=== PATIENT | male | born 1960 | race Caucasian/White ===

== ENCOUNTER 2016-12-03 14:15 | Emergency (ER) | payer MEDICAID ==
[2016-12-03] MEDS ORDERED: KETOROLAC 60 MG/2 ML VIAL IM STA (15:04)
[2016-12-03] MEDS ORDERED: KETOROLAC 30 MG/ML VIAL ONE (15:07)
== END 2016-12-03 16:22 | disposition home or self-care (01) ==
DX: M25.562 Pain in left knee (principal); G89.29 Other chronic pain; M25.462 Effusion, left knee

== ENCOUNTER 2017-04-15 08:45 | Outpatient (CLI) | payer MEDICAID | END 2017-04-15 08:46 | disposition home or self-care (01) | DX: I42.9 Cardiomyopathy, unspecified (principal); Z95.810 Presence of automatic (implantable) cardiac defibrillator ==

== ENCOUNTER 2018-01-08 10:58 | Emergency (ER) | payer MEDICAID ==
[2018-01-08 11:29] LABS: BASOPHILS # (AUTO) 0.1 10^3/uL (0.0-0.1); BASOPHILS % (AUTO) 1.3 %; EOSINOPHILS # (AUTO) 0.3 10^3/uL (0.0-0.7); EOSINOPHILS % (AUTO) 2.7 %; HGB - HEMOGLOBIN 14.4 g/dL (14.0-18.0); LYMPHOCYTES # (AUTO) 2.2 10^3/uL (1.5-3.5); LYMPHOCYTES % (AUTO) 19.4 %; MEAN CORPUSCULAR HEMOGLOBIN 29.5 pg (27.0-31.0); MEAN CORPUSCULAR HGB CONC 33.5 g/dL (32.0-36.0); MEAN CORPUSCULAR VOLUME 87.9 fL (80.0-94.0); MEAN PLATELET VOLUME 9.2 fL (7.4-11.4); NEUTROPHILS # (AUTO) 7.6 10^3/uL (1.5-6.6); NEUTROPHILS % (AUTO) 67.6 %; PLT - PLATELET COUNT 178 10^3/uL (130-450); RED BLOOD COUNT 4.87 10^6/uL (4.70-6.10); RED CELL DISTRIBUTION WIDTH 13.9 % (12.0-15.0); WHITE BLOOD COUNT 11.2 x10^3/uL (4.8-10.8)
[2018-01-08 11:40] LABS: ALBUMIN 4.5 g/dL (3.2-5.5); ALBUMIN/GLOBULIN RATIO 1.7 (1.0-2.2); BILIRUBIN,TOTAL 1.1 mg/dL (0.2-1.0); CALCIUM 9.1 mg/dL (8.5-10.3); CREATININE 1.1 mg/dL (0.6-1.2); TOTAL PROTEIN 7.2 g/dL (6.7-8.2)
--- NOTE | 2018-01-08 12:18 | ED Physician Documentation ---
History of Present Illness - Stated complaint Stated Complaint: DIFFICULTY BREATHING - Chief complaint Chief Complaint: Resp - History obtained from History obtained from: Patient - History of Present Illness Timing: How many days ago (3) Pain level max: 5 Pain level now: 2 - Additonal information Additional information: Patient is a 57-year-old gentleman with a long history of cardiac disease as well as heart failure who presents to the emergency department with 3 days of worsening dyspnea. States it is worse with lying flat, better with sitting up. Has been taking his Lasix as prescribed. States he has not been ill recently. It is also worse when laying on the left side, this creates a slight pressure in his chest. States that the pressure has been intermittent in the past 3 days, but consistent for approximately 6 hours last night. States also feels that his anxiety is worsening. States has a long history of hemorrhoids and noticed a very small amount of bright red blood on the toilet paper today. Does not want this evaluated. Review of Systems Ten Systems: 10 systems reviewed and negative Constitutional: denies: Fever, Chills Ears: denies: Ear pain Nose: denies: Rhinorrhea / runny nose, Congestion Throat: denies: Sore throat Cardiac: denies: Palpitations Respiratory: reports: Dyspnea, Wheezing. denies: Hemoptysis GI: denies: Abdominal Pain, Nausea, Vomiting, Diarrhea Skin: denies: Rash Musculoskeletal: denies: Neck pain, Back pain Neurologic: denies: Headache PD PAST MEDICAL HISTORY - Past Medical History Cardiovascular: Congestive heart failure Neuro: Head injury Endocrine/Autoimmune: None GI: GERD : None Psych: Panic attacks Musculoskeletal: Gout, Chronic back pain Derm: None - Past Surgical History Past Surgical History: Yes General: Cholecystectomy Cardiovascular: AICD - Present Medications Home Medications: Ambulatory Orders Medication Instructions Recorded Confirmed Carvedilol 9.375 mg PO BID 02/09/14 09/17/16 Citalopram Hydrobromide 20 mg PO DAILY 02/09/14 09/17/16 [Citalopram HBr] Digoxin [Lanoxin] 125 mcg PO DAILY 02/09/14 09/17/16 Furosemide [Lasix] 40 mg PO DAILY 02/09/14 09/17/16 Lisinopril 20 mg PO BID 02/09/14 09/17/16 Nitroglycerin [Nitrostat] 0.4 mg SL Q5MIN PRN 02/09/14 09/17/16 Pravastatin Sodium 20 mg PO HS 02/09/14 09/17/16 metFORMIN [Glucophage] 1 mg ORAL BID 04/29/15 09/17/16 Allopurinol 100 mg PO DAILY 08/18/15 09/17/16 Dexamethasone [Decadron] 4 mg PO DAILY #5 tablet 09/07/16 09/17/16 Naproxen 375 mg PO BID #15 tablet 09/07/16 09/17/16 LORazepam [Ativan] 0.5 - 1 mg PO Q6H PRN #14 tablet 09/18/16 Meloxicam [Mobic] 7.5 mg PO DAILY #20 tablet 12/03/16 Albuterol Sulf [Ventolin Hfa 1 - 2 puffs INH Q4HR PRN #1 inhaler 01/08/18 Inhaler] - Allergies Allergies/Adverse Reactions: Allergies Allergy/AdvReac Type Severity Reaction Status Date / Time No Known Drug Allergies Allergy Verified 01/08/18 11:06 - Social History Does the pt smoke?: No Smoking Status: Never smoker Does the pt drink ETOH?: No Does the pt have substance abuse?: Yes Substance Use and Type: Marijuana - Immunizations Immunizations are current?: Yes - POLST Patient has POLST: No PD ED PE NORMAL - Vitals Vital signs reviewed: Yes - General General: Alert and oriented X 3, No acute distress - HEENT HEENT: Moist mucous membranes - Neck Neck: Supple, no meningeal sign - Cardiac Cardiac: RRR - Respiratory Respiratory: No respiratory distress, Other (Moderate wheezing bilaterally) - Abdomen Abdomen: Soft, Non tender, Non distended - Derm Derm: Warm and dry - Extremities Extremities: No edema, No calf tenderness / cord - Neuro Neuro: Alert and oriented X 3 - Psych Psych: Normal mood, Normal affect Results - Vitals Vitals: Vital Signs - 24 hr 01/08/18 01/08/18 01/08/18 11:01 11:07 12:30 Temperature 36.3 C L Heart Rate 80 75 Respiratory 22 20 Rate Blood Pressure 139/90 H O2 Saturation 96 01/08/18 14:51 Temperature Heart Rate 82 Respiratory 18 Rate Blood Pressure 147/82 H O2 Saturation 95 Oxygen O2 Source Room air - EKG (time done) 1108 Rate: Rate (enter#) (72) Rhythm: Paced Computer interpretation: Agree with computer - Labs Labs: Laboratory Tests 01/08/18 01/08/18 01/08/18 11:15 11:15 11:15 WBC 11.2 H RBC 4.87 Hgb 14.4 Hct 42.8 MCV 87.9 MCH 29.5 MCHC 33.5 RDW 13.9 Plt Count 178 MPV 9.2 Neut # 7.6 H Lymph # 2.2 Frio # 1.0 Eos # 0.3 Baso # 0.1 Absolute Nucleated RBC 0.00 Nucleated RBC % 0.0 Sodium 140 Potassium 4.7 Chloride 102 Carbon Dioxide 25 Anion Gap 13.0 BUN 19 Creatinine 1.1 Estimated GFR (MDRD) 69 L Glucose 163 H Calcium 9.1 Total Bilirubin 1.1 H AST 25 ALT 40 Alkaline Phosphatase 33 L Troponin I 0.04 B-Natriuretic Peptide Total Protein 7.2 Albumin 4.5 Globulin 2.7 Albumin/Globulin Ratio 1.7 Lipase 19 L Last Dose Date Last Dose Time Digoxin 01/08/18 01/08/18 01/08/18 11:15 11:15 14:02 WBC RBC Hgb Hct MCV MCH MCHC RDW Plt Count MPV Neut # Lymph # Frio # Eos # Baso # Absolute Nucleated RBC Nucleated RBC % Sodium Potassium Chloride Carbon Dioxide Anion Gap BUN Creatinine Estimated GFR (MDRD) Glucose Calcium Total Bilirubin AST ALT Alkaline Phosphatase Troponin I 0.04 B-Natriuretic Peptide 480 H Total Protein Albumin Globulin Albumin/Globulin Ratio Lipase Last Dose Date UNKNOWN Last Dose Time UNKNOWN Digoxin < 0.2 - Rads (name of study) cxr Radiology: Prelim report reviewed, EMP read contemporaneously, See rad report ( Interval increase in vascular and interstitial prominence with increased perihilar prominence bilaterally. Congestive changes in this appearance. Hazy increased perihilar opacities seen bilaterally and mild airspace pulmonary edema is a consideration. Other causes of increased opacity including infection bilaterally is not excluded. No dense consolidation. No other significant interval change) PD MEDICAL DECISION MAKING - ED course Complexity details: reviewed results, re-evaluated patient, considered differential (No ST elevation [place], no aortic dissection, no PE, no tension pneumothorax, no aortic aneurysm), d/w patient ED course: Patient is a 57-year-old male who presents to the emergency department with 3 days of chest pain and orthopnea. He has not been using an inhaler at home. Feels much better after nebulizer treatment. No hypoxia. No respiratory distress. Negative troponin 2. No acute EKG findings. Chest pressure resolved with nebulizer treatment as well. Given an extra dose of Lasix here. Will continue supportive care and follow-up with his doctor. No evidence of pneumonia, fevers, sepsis. Patient counseled regarding signs and symptoms for which I believe and urgent re-evaluation would be necessary. Patient with good understanding of and agreement to plan and is comfortable going home at this time This document was made in part using voice recognition software. While efforts are made to proofread this document, sound alike and grammatical errors may occur. Departure - Departure Disposition: Home, Self Care Clinical Impression: Moderate COPD (chronic obstructive pulmonary disease) Congestive heart failure Qualifiers: Congestive heart failure type: unspecified Congestive heart failure chronicity : unspecified Qualified Code(s): I50.9 - Heart failure, unspecified Condition: Good Instructions: ED CHF General, ED COPD Flare Follow-Up: Alexis Collins MD [Primary Care Provider] - Within 3 Days Prescriptions: Albuterol Sulf [Ventolin Hfa Inhaler] 1 - 2 puffs INH Q4HR PRN #1 inhaler PRN Reason: Shortness Of Air/Wheezing Comments: Use the inhaler as prescribed. Return if you worsen. Discharge Date/Time: 01/08/18 14:54
[2018-01-08] MEDS ORDERED: FUROSEMIDE 40 MG/4 ML VIAL IVP STA (12:25)
[2018-01-08] MEDS ORDERED: ALBUTEROL NEB 2.5 MG/3 ML INH STA (12:25)
--- NOTE | 2018-01-08 12:27 | XRAY Report ---
EXAM: CHEST RADIOGRAPHY EXAM DATE: 01/08/2018 11:36 AM. CLINICAL HISTORY: SOA . Shortness of breath. COMPARISON: 09/17/2016. TECHNIQUE: 2 views. FINDINGS: Lungs/Pleura: Bilateral increased vascular interstitial opacities with patchy bilateral perihilar air space opacities. No separate dense consolidation. No pleural effusion. No pneumothorax. Mediastinum: Mild cardiomegaly. Pacemaker with intact pacing leads. Pulmonary hilar prominence bilate rally. Other: None. IMPRESSION: 1. Interval increase in vascular and interstitial prominence with increased hilar prominence bilatera lly. Congestive changes In this appearance. Hazy increased perihilar opacity is seen bilaterally and mild airspace pulmonary edema is a consideration. Other causes of increased opacity including infecti on bilaterally is not excluded. No dense consolidation. 2. No other significant interval change compared to prior study. [facility] Referring Provider Line: [phone] SITE ID: [id number]
[2018-01-08] MEDS ORDERED: LORazepam 2 MG/ML VIAL IVP STA (12:30)
[2018-01-08 12:46] LABS: DIGOXIN < 0.2 ng/mL
[2018-01-08] MEDS ORDERED: DEXAMETHASONE 10 MG/ML VIAL PO STA (14:35)
[2018-01-08 14:54] VITALS: BP 147/82
== END 2018-01-08 14:54 | disposition home or self-care (01) ==
LOC: ED 10:58
DX: J44.9 Chronic obstructive pulmonary disease, unspecified (principal); I50.9 Heart failure, unspecified; Z95.810 Presence of automatic (implantable) cardiac defibrillator
CPT/HCPCS: 36415; 71046; 80053; 80162; 83690; 83880; 84484; 85025; 93005; 94640; 94664; 96374; 96375; 99283; 99285; J2060; J7613

== ENCOUNTER 2018-02-16 09:06 | Outpatient (CLI) | payer MEDICAID ==
[2018-02-16 12:29] LABS: BASOPHILS % (AUTO) 0.6 %; EOSINOPHILS # (AUTO) 0.2 10^3/uL (0.0-0.7); EOSINOPHILS % (AUTO) 2.9 %; HGB - HEMOGLOBIN 14.7 g/dL (14.0-18.0); LYMPHOCYTES % (AUTO) 26.4 %; MEAN CORPUSCULAR HEMOGLOBIN 29.6 pg (27.0-31.0); MEAN CORPUSCULAR VOLUME 86.9 fL (80.0-94.0); MEAN PLATELET VOLUME 9.5 fL (7.4-11.4); MONOCYTES # (AUTO) 0.6 10^3/uL (0.0-1.0); MONOCYTES % (AUTO) 8.4 %; NEUTROPHILS # (AUTO) 4.6 10^3/uL (1.5-6.6); NEUTROPHILS % (AUTO) 61.7 %; PLT - PLATELET COUNT 191 10^3/uL (130-450); RED BLOOD COUNT 4.96 10^6/uL (4.70-6.10); RED CELL DISTRIBUTION WIDTH 13.5 % (12.0-15.0); WHITE BLOOD COUNT 7.5 x10^3/uL (4.8-10.8)
[2018-02-16 12:58] LABS: ALBUMIN 4.4 g/dL (3.2-5.5); ALBUMIN/GLOBULIN RATIO 1.8 (1.0-2.2); ALKALINE PHOSPHATASE 31 IU/L (42-121); ALT ALANINE AMINOTRANSFERASE 35 IU/L (10-60); AST ASPARTATE AMINOTRANSFERASE 24 IU/L (10-42); BILIRUBIN,TOTAL 0.9 mg/dL (0.2-1.0); BUN - BLOOD UREA NITROGEN 24 mg/dL (6-20); CALCIUM 9.2 mg/dL (8.5-10.3); CARBON DIOXIDE - CO2 25 mmol/L (21-32); CHLORIDE 104 mmol/L (101-111); CHOL/HDL RATIO 5.3 (<5.0); CHOLESTEROL 112 mg/dL; CREATININE 1.1 mg/dL (0.6-1.2); GFR - MDRD 69 (>89); GLUCOSE 170 mg/dL (70-100); HDL CHOLESTEROL 21 mg/dL; LDL CHOLESTEROL,CALCULATED 54 mg/dL; LDL/HDL RATIO 2.6 (<3.6); SODIUM 138 mmol/L (135-145); TOTAL PROTEIN 6.9 g/dL (6.7-8.2); VLDL CHOLESTEROL 37 mg/dL
[2018-02-16 13:26] LABS: HB2 TOTAL 16.2 g/dL; HEMOGLOBIN A1C 0.91 g/dL; HEMOGLOBIN A1C % 7.3 % (4.6-6.2)
== END 2018-02-16 09:07 | disposition home or self-care (01) ==
LOC: LAB.N 09:06
PROVIDERS: ATTEND Family Medicine
DX: E11.9 Type 2 diabetes mellitus without complications (principal); F32.9 Major depressive disorder, single episode, unspecified; I10 Essential (primary) hypertension
CPT/HCPCS: 36415; 80053; 80061; 83036; 83721; 84443; 85025

== ENCOUNTER 2018-05-01 06:44 | Emergency (ER) | payer MEDICAID ==
[2018-05-01] MEDS ORDERED: oxyCODONE 5 MG TABLET PO STA (07:35)
[2018-05-01] MEDS ORDERED: ALBUTEROL NEB 2.5 MG/3 ML INH STA (07:35)
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
--- NOTE | 2018-05-01 08:27 | XRAY Report ---
EXAM: LEFT KNEE RADIOGRAPHY EXAM DATE: 05/01/2018 07:58 AM. CLINICAL HISTORY: Knee pain after twisting. COMPARISON: 09/07/2016. TECHNIQUE: 3 views. FINDINGS: Bones: Large lateral compartment femoral tibial osteophytes, unchanged. No acute fracture or dislocat ion. Joints: Moderate joint effusion. Soft Tissues: No soft tissue swelling. IMPRESSION: No evidence for acute osseous injury left knee. Moderate joint effusion. [facility] Referring Provider Line: [phone] SITE ID: [id number]
[2018-05-01 09:12] VITALS: BP 125/94
== END 2018-05-01 09:19 | disposition home or self-care (01) ==
LOC: ED 06:44
DX: S83.92XA Sprain of unspecified site of left knee, initial encounter (principal); X50.1XXA Overexertion from prolonged static or awkward postures, initial encounter; Y93.02 Activity, running; I50.9 Heart failure, unspecified; K21.9 Gastro-esophageal reflux disease without esophagitis; M10.9 Gout, unspecified; Z95.810 Presence of automatic (implantable) cardiac defibrillator
CPT/HCPCS: 73564; 94664; 99283; 99284; A9270

== ENCOUNTER 2018-05-10 14:39 | Outpatient (CLI) | payer MEDICAID ==
--- NOTE | 2018-05-10 16:10 | XRAY Report ---
Procedure Date: 05/10/2018 Accession Number: [id number] / [id number] Procedure: XRN - Knee 3 View RT CPT Code: FULL RESULT: EXAM: Knee 3 View RT DATE: 05/10/2018 2:55 PM CLINICAL HISTORY: KNEE PAIN COMPARISON: None TECHNIQUE: 3 view right knee FINDINGS: Mild osteoarthritis, with small osteophytes. Moderate effusion. No evidence of fracture or dislocation. IMPRESSION: Mild osteoarthritis, with a moderate effusion.
== END 2018-05-10 14:40 | disposition home or self-care (01) ==
LOC: DI.N 14:39
PROVIDERS: ATTEND Family Medicine
DX: M17.11 Unilateral primary osteoarthritis, right knee (principal); M25.461 Effusion, right knee

== ENCOUNTER 2018-06-14 08:00 | Outpatient (CLI) | payer MEDICAID ==
[2018-06-14 13:36] LABS: BASOPHILS % (AUTO) 0.6 %; EOSINOPHILS # (AUTO) 0.2 10^3/uL (0.0-0.7); EOSINOPHILS % (AUTO) 2.8 %; HGB - HEMOGLOBIN 15.9 g/dL (14.0-18.0); LYMPHOCYTES # (AUTO) 2.7 10^3/uL (1.5-3.5); LYMPHOCYTES % (AUTO) 34.1 %; MEAN CORPUSCULAR HEMOGLOBIN 29.7 pg (27.0-31.0); MEAN CORPUSCULAR HGB CONC 33.4 g/dL (32.0-36.0); MEAN CORPUSCULAR VOLUME 88.9 fL (80.0-94.0); MEAN PLATELET VOLUME 9.5 fL (7.4-11.4); MONOCYTES # (AUTO) 0.7 10^3/uL (0.0-1.0); MONOCYTES % (AUTO) 8.7 %; NEUTROPHILS # (AUTO) 4.2 10^3/uL (1.5-6.6); NEUTROPHILS % (AUTO) 53.8 %; PLT - PLATELET COUNT 193 10^3/uL (130-450); RED BLOOD COUNT 5.37 10^6/uL (4.70-6.10); RED CELL DISTRIBUTION WIDTH 13.8 % (12.0-15.0); WHITE BLOOD COUNT 7.8 x10^3/uL (4.8-10.8)
[2018-06-14 13:46] LABS: HB2 TOTAL 16.6 g/dL; HEMOGLOBIN A1C 1.29 g/dL; HEMOGLOBIN A1C % 9.3 % (4.6-6.2)
[2018-06-14 13:53] LABS: ALBUMIN 4.2 g/dL (3.2-5.5); ALBUMIN/GLOBULIN RATIO 1.4 (1.0-2.2); ALKALINE PHOSPHATASE 39 IU/L (42-121); ALT ALANINE AMINOTRANSFERASE 42 IU/L (10-60); AST ASPARTATE AMINOTRANSFERASE 25 IU/L (10-42); BILIRUBIN,TOTAL 1.1 mg/dL (0.2-1.0); BUN - BLOOD UREA NITROGEN 30 mg/dL (6-20); CALCIUM 9.1 mg/dL (8.5-10.3); CARBON DIOXIDE - CO2 27 mmol/L (21-32); CHLORIDE 101 mmol/L (101-111); CHOLESTEROL 149 mg/dL; CREATININE 1.1 mg/dL (0.6-1.2); GFR - MDRD 69 (>89); GLUCOSE 226 mg/dL (70-100); HDL CHOLESTEROL 25 mg/dL; LDL CHOLESTEROL,CALCULATED 86 mg/dL; LDL/HDL RATIO 3.4 (<3.6); SODIUM 135 mmol/L (135-145); TOTAL PROTEIN 7.3 g/dL (6.7-8.2); VLDL CHOLESTEROL 38 mg/dL
== END 2018-06-14 08:01 ==
LOC: LAB.N 08:00
PROVIDERS: ATTEND Internal Medicine Cardiovascular Disease
DX: I42.0 Dilated cardiomyopathy (principal); I44.7 Left bundle-branch block, unspecified; E11.9 Type 2 diabetes mellitus without complications; I10 Essential (primary) hypertension
CPT/HCPCS: 36415; 80053; 80061; 83036; 83721; 85025

== ENCOUNTER 2018-09-15 08:12 | Outpatient (CLI) | payer MEDICAID ==
[2018-09-15 13:07] LABS: CALCIUM 9.1 mg/dL (8.5-10.3)
[2018-09-15 13:15] LABS: HB2 TOTAL 17.2 g/dL; HEMOGLOBIN A1C 1.14 g/dL; HEMOGLOBIN A1C % 8.2 % (4.6-6.2)
== END 2018-09-15 08:13 ==
LOC: LAB.N 08:12
PROVIDERS: ATTEND Family Medicine
DX: E11.65 Type 2 diabetes mellitus with hyperglycemia (principal)
CPT/HCPCS: 36415; 80048; 83036

== ENCOUNTER 2018-10-18 14:31 | Outpatient (CLI) | payer MEDICAID | END 2018-10-18 23:59 | disposition home or self-care (01) | LOC: RT.N 14:31 | PROVIDERS: ATTEND Family Medicine | DX: I44.7 Left bundle-branch block, unspecified (principal); I42.0 Dilated cardiomyopathy; R07.89 Other chest pain | CPT/HCPCS: 93005 ==

== ENCOUNTER 2018-11-10 11:56 | Outpatient (CLI) | payer MEDICAID | END 2018-11-10 11:57 | disposition home or self-care (01) | LOC: RT 11:56 | PROVIDERS: ATTEND Family Medicine | DX: R07.89 Other chest pain (principal) | CPT/HCPCS: 93005 ==

== ENCOUNTER 2018-12-09 08:00 | Outpatient (CLI) | payer MEDICAID ==
[2018-12-09 13:10] LABS: BUN - BLOOD UREA NITROGEN 27 mg/dL (6-20); CALCIUM 9.1 mg/dL (8.5-10.3); CARBON DIOXIDE - CO2 28 mmol/L (21-32); CHLORIDE 99 mmol/L (101-111); CREATININE 1.1 mg/dL (0.6-1.2); GFR - MDRD 69 (>89); GLUCOSE 318 mg/dL (70-100); MAGNESIUM 2.3 mg/dL (1.7-2.8); SODIUM 136 mmol/L (135-145)
[2018-12-09 13:21] LABS: DIGOXIN < 0.2 ng/mL
== END 2018-12-09 23:59 | disposition home or self-care (01) ==
LOC: LAB.N 08:00
PROVIDERS: ATTEND Physician Assistant
DX: I42.0 Dilated cardiomyopathy (principal)
CPT/HCPCS: 36415; 80048; 80162; 83735

== ENCOUNTER 2019-02-01 08:00 | Outpatient (CLI) | payer MEDICAID ==
[2019-02-01 13:10] LABS: BASOPHILS # (AUTO) 0.1 10^3/uL (0.0-0.1); BASOPHILS % (AUTO) 1.6 %; EOSINOPHILS # (AUTO) 0.2 10^3/uL (0.0-0.7); EOSINOPHILS % (AUTO) 2.4 %; HGB - HEMOGLOBIN 15.8 g/dL (14.0-18.0); LYMPHOCYTES # (AUTO) 1.6 10^3/uL (1.5-3.5); LYMPHOCYTES % (AUTO) 22.6 %; MEAN CORPUSCULAR HEMOGLOBIN 29.9 pg (27.0-31.0); MEAN CORPUSCULAR HGB CONC 33.2 g/dL (32.0-36.0); MEAN PLATELET VOLUME 9.8 fL (7.4-11.4); MONOCYTES # (AUTO) 0.6 10^3/uL (0.0-1.0); MONOCYTES % (AUTO) 8.2 %; NEUTROPHILS # (AUTO) 4.6 10^3/uL (1.5-6.6); NEUTROPHILS % (AUTO) 65.2 %; PLT - PLATELET COUNT 158 10^3/uL (130-450); RED BLOOD COUNT 5.28 10^6/uL (4.70-6.10); RED CELL DISTRIBUTION WIDTH 13.8 % (12.0-15.0); WHITE BLOOD COUNT 7.1 x10^3/uL (4.8-10.8)
[2019-02-01 13:32] LABS: ALBUMIN 4.4 g/dL (3.2-5.5); ALBUMIN/GLOBULIN RATIO 1.6 (1.0-2.2); ALKALINE PHOSPHATASE 34 IU/L (42-121); ALT ALANINE AMINOTRANSFERASE 39 IU/L (10-60); AST ASPARTATE AMINOTRANSFERASE 25 IU/L (10-42); BILIRUBIN,TOTAL 0.9 mg/dL (0.2-1.0); BUN - BLOOD UREA NITROGEN 23 mg/dL (6-20); CARBON DIOXIDE - CO2 28 mmol/L (21-32); CHLORIDE 99 mmol/L (101-111); CHOL/HDL RATIO 4.9 (<5.0); CHOLESTEROL 131 mg/dL; CREATININE 1.2 mg/dL (0.6-1.2); GFR - MDRD 63 (>89); GLUCOSE 411 mg/dL (70-100); HDL CHOLESTEROL 27 mg/dL; LDL CHOLESTEROL,CALCULATED 71 mg/dL; LDL/HDL RATIO 2.6 (<3.6); SODIUM 136 mmol/L (135-145); TOTAL PROTEIN 7.2 g/dL (6.7-8.2); VLDL CHOLESTEROL 33 mg/dL
[2019-02-01 13:53] LABS: MICROALBUM/CREATININE RATIO,UR 106.3 ug/mg (<30.0); MICROALBUMIN,URINE 1.7 mg/dL (0-300.0)
[2019-02-01 14:56] LABS: HB2 TOTAL 17.5 g/dL; HEMOGLOBIN A1C 1.76 g/dL; HEMOGLOBIN A1C % 11.4 % (4.6-6.2)
== END 2019-02-01 23:59 | disposition home or self-care (01) ==
LOC: LAB.N 08:00
PROVIDERS: ATTEND Nurse Practitioner
DX: E11.8 Type 2 diabetes mellitus with unspecified complications (principal); Z12.5 Encounter for screening for malignant neoplasm of prostate; I10 Essential (primary) hypertension
CPT/HCPCS: 36415; 80053; 80061; 82043; 82570; 83036; 83721; 84153; 84443; 85025

== ENCOUNTER 2019-06-12 08:16 | Outpatient (CLI) | payer MEDICAID ==
[2019-06-12 19:16] LABS: ALBUMIN 4.4 g/dL (3.2-5.5); ALBUMIN/GLOBULIN RATIO 1.5 (1.0-2.2); ALKALINE PHOSPHATASE 38 IU/L (42-121); ALT ALANINE AMINOTRANSFERASE 27 IU/L (10-60); AST ASPARTATE AMINOTRANSFERASE 19 IU/L (10-42); BILIRUBIN,TOTAL 0.9 mg/dL (0.2-1.0); BUN - BLOOD UREA NITROGEN 34 mg/dL (6-20); CALCIUM 9.4 mg/dL (8.5-10.3); CARBON DIOXIDE - CO2 24 mmol/L (21-32); CHLORIDE 103 mmol/L (101-111); CHOL/HDL RATIO 4.8 (<5.0); CHOLESTEROL 125 mg/dL; CREATININE 1.2 mg/dL (0.6-1.2); GFR - MDRD 63 (>89); GLUCOSE 344 mg/dL (70-100); HDL CHOLESTEROL 26 mg/dL; LDL CHOLESTEROL,CALCULATED 61 mg/dL; LDL/HDL RATIO 2.3 (<3.6); SODIUM 139 mmol/L (135-145); TOTAL PROTEIN 7.3 g/dL (6.7-8.2); VLDL CHOLESTEROL 38 mg/dL
[2019-06-12 19:26] LABS: CREATININE,URINE 170.2 mg/dL; MICROALBUM/CREATININE RATIO,UR 149.2 ug/mg (<30.0); MICROALBUMIN,URINE 25.4 mg/dL (0-300.0)
[2019-06-12 19:38] LABS: HB2 TOTAL 16.3 g/dL; HEMOGLOBIN A1C 1.66 g/dL; HEMOGLOBIN A1C % 11.5 % (4.6-6.2)
== END 2019-06-12 23:59 | disposition home or self-care (01) ==
LOC: LAB.N 08:16
PROVIDERS: ATTEND Nurse Practitioner
DX: E11.65 Type 2 diabetes mellitus with hyperglycemia (principal)
CPT/HCPCS: 36415; 80053; 80061; 82043; 82570; 83036; 83721; 84443

== ENCOUNTER 2019-08-29 14:15 | Outpatient (CLI) | payer MEDICAID | END 2019-08-29 14:16 | disposition critical access hospital (66) | LOC: EMS 14:15 | PROVIDERS: ATTEND Surgery | DX: S51.011A Laceration without foreign body of right elbow, initial encounter (principal); M25.511 Pain in right shoulder; V49.50XA Passenger injured in collision with unspecified motor vehicles in traffic accident, initial encounter; Y92.413 State road as the place of occurrence of the external cause | CPT/HCPCS: A0425; A0429; A0999 ==

== ENCOUNTER 2019-08-29 15:02 | Emergency (ER) | payer MEDICAID ==
[2019-08-29] MEDS ORDERED: IPRATROPIUM/ALBUTEROL 3 ML NEB INH STA (15:12)
[2019-08-29] MEDS ORDERED: DEXAMETHASONE 10 MG/ML VIAL PO STA (15:12)
[2019-08-29] MEDS ORDERED: CHERRY SYRUP 10 ML UDC PO ONE (15:12)
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
--- NOTE | 2019-08-29 16:07 | XRAY Report ---
Reason: cough/dyspnea Procedure Date: 08/29/2019 Accession Number: [id number] / [id number] Procedure: XR - Chest 2 View X-Ray CPT Code: 98048 FULL RESULT: EXAM: CHEST RADIOGRAPHY EXAM DATE: 08/29/2019 04:00 PM. CLINICAL HISTORY: Cough/dyspnea. COMPARISON: CHEST 2 VIEW 01/08/2018 11:22 AM. TECHNIQUE: 2 views. FINDINGS: Lungs/Pleura: Hypoventilatory chest. Diffuse venous congestion similar to on prior exam. No focal abnormality. No pleural effusions. Mediastinum: Moderately enlarged cardiac silhouette. Biventricular pacemaker noted. Other: None. IMPRESSION: Findings consistent with congestive heart failure. [facility]
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
[2019-08-29] MEDS ORDERED: KETOROLAC 30 MG/ML VIAL IVP STA (16:20)
[2019-08-29] MEDS ORDERED: KETOROLAC 60 MG/2 ML VIAL IM STA (16:34)
[2019-08-29] MEDS ORDERED: cefTRIAXone 1 GM VIAL IM STA (17:02)
[2019-08-29] MEDS ORDERED: LIDOCAINE 1% 2 ML VIAL MC ONE (17:02)
[2019-08-29] MEDS ORDERED: TETANUS/DIPHTHERIA/PERTUSSIS 0.5 ML SYRINGE IM ONE (17:02)
[2019-08-29 17:43] VITALS: BP 129/85
== END 2019-08-29 17:43 | disposition home or self-care (01) ==
LOC: EDUNIT# → ED 15:02
DX: S51.011A Laceration without foreign body of right elbow, initial encounter (principal); S50.01XA Contusion of right elbow, initial encounter; S40.011A Contusion of right shoulder, initial encounter; V43.62XA Car passenger injured in collision with other type car in traffic accident, initial encounter; Y92.410 Unspecified street and highway as the place of occurrence of the external cause; Z23 Encounter for immunization; J44.1 Chronic obstructive pulmonary disease with (acute) exacerbation; I11.0 Hypertensive heart disease with heart failure; I50.9 Heart failure, unspecified; E11.9 Type 2 diabetes mellitus without complications; Z79.4 Long term (current) use of insulin; Z79.82 Long term (current) use of aspirin; M19.011 Primary osteoarthritis, right shoulder; R22.0 Localized swelling, mass and lump, head
CPT/HCPCS: 71046; 90471; 94664; 96372; 99284

== ENCOUNTER 2019-09-14 08:32 | Outpatient (CLI) | payer MEDICAID ==
[2019-09-14 13:28] LABS: HB2 TOTAL 16.2 g/dL; HEMOGLOBIN A1C 1.22 g/dL
== END 2019-09-14 08:33 | disposition home or self-care (01) ==
LOC: LAB.N 08:32
PROVIDERS: ATTEND Physician Assistant Medical
DX: E11.65 Type 2 diabetes mellitus with hyperglycemia (principal)
CPT/HCPCS: 36415; 83036

== ENCOUNTER 2019-10-09 12:44 | Observation (INO) | payer MEDICAID ==
--- NOTE | 2019-10-09 12:51 | ED Physician Documentation ---
PD HPI DYSPNEA - Stated complaint Stated Complaint: SOA - History obtained from History obtained from: Patient, Family - History of Present Illness Timing - onset: How many days ago (few) Timing - onset during: Light activity Timing - duration: Days (few) Timing - details: Gradual onset, Still present Inciting event(s): URI (has had some congestion and cough for few days. No fever. No sputum production.) Improved by: Inhaler/neb, Rest Worsened by: Exertion, Coughing Associated symptoms: Cough, Wheezing, Chest pain / discomfort, Bilateral edema (some chronic but increased over baseline.). No: Fever Similar symptoms before: Diagnosis (has history of CHF as well as COPD.) Recently seen: Emergency Dept (had some COPD exac about 1 1/2 weeks ago and Rx with Albuterol, Nuoneb in ER, steroids and Zpack, and was improved. Symptoms again the past few days. Does have history of CHF/cardiomyopathy as well. Sees Cardiology in [facility].) Review of Systems Constitutional: reports: Myalgias. denies: Fever Nose: reports: Congestion. denies: Rhinorrhea / runny nose Cardiac: reports: Chest pain / pressure, Pedal edema (some chronic, with increase the past few days). denies: Palpitations, Calf pain Respiratory: reports: Dyspnea, Cough, Wheezing GI: denies: Abdominal Pain, Nausea, Vomiting, Diarrhea Musculoskeletal: reports: Extremity swelling. denies: Back pain Neurologic: reports: Generalized weakness. denies: Focal weakness, Near syncope, Altered mental status PD PAST MEDICAL HISTORY - Past Medical History Cardiovascular: Congestive heart failure, Hypertension, High cholesterol, Atrial fibrillation, Arrhythmia Respiratory: Asthma, Sleep apnea Endocrine/Autoimmune: Type 2 diabetes GI: GERD : None Psych: Panic attacks Musculoskeletal: Rheumatoid arthritis, Gout, Chronic back pain Derm: None - Past Surgical History Past Surgical History: Yes General: Cholecystectomy Cardiovascular: Pacemaker, AICD - Present Medications Home Medications: Ambulatory Orders Medication Instructions Recorded Confirmed Carvedilol 25 mg PO BID 02/09/14 06/19/19 Citalopram Hydrobromide 10 mg PO BID 02/09/14 06/19/19 [Citalopram HBr] Digoxin [Lanoxin] 125 mcg PO DAILY 02/09/14 06/19/19 Furosemide [Lasix] 40 mg PO DAILY 02/09/14 06/19/19 Nitroglycerin [Nitrostat] 0.4 mg SL Q5MIN PRN 02/09/14 06/19/19 Pravastatin Sodium 20 mg PO HS 02/09/14 06/19/19 LORazepam [Ativan] 0.5 - 1 mg PO Q6H PRN #14 tablet 09/18/16 06/19/19 Albuterol Sulf [Ventolin Hfa 1 - 2 puffs INH Q4HR PRN #1 inhaler 01/08/18 06/19/19 Inhaler] Aspirin [Adult Aspirin Regimen] 81 mg PO DAILY 06/19/19 06/19/19 Insulin Aspart [NovoLOG] 0 - 10 unit SUBQ TIDWM 06/19/19 06/19/19 Insulin Glargine [Lantus Solostar] 24 unit SQ DAILY 06/19/19 07/27/19 SITagliptin [Januvia] 100 mg PO DAILY 06/19/19 06/19/19 Sildenafil Citrate [Sildenafil] 60 - 100 mg PO DAILY 06/19/19 06/19/19 hydrOXYzine HCl [Hydroxyzine HCl] 25 mg PO QID 06/19/19 06/19/19 Albuterol 2.5 mg INH Q4H PRN #30 neb 08/29/19 Azithromycin [Zithromax] 250 mg PO DAILY #6 tablet 08/29/19 Nebulizer [Aeroneb Go Nebulizer] 1 each MC Q4HR PRN #1 each 08/29/19 predniSONE [Deltasone] 10 mg PO ONCE #26 tablet 08/29/19 - Allergies Allergies/Adverse Reactions: Allergies Allergy/AdvReac Type Severity Reaction Status Date / Time metformin AdvReac Nausea Verified 10/09/19 12:52 - Social History Does the pt smoke?: No Smoking Status: Never smoker Does the pt drink ETOH?: No Does the pt have substance abuse?: Yes - Family History Family history: denies: Sudden - Immunizations Immunizations are current?: Yes - POLST Patient has POLST: No PD ED PE NORMAL - Vitals Vital signs reviewed: Yes - General General: Alert and oriented X 3, Well developed/nourished, Other (He is able to talk in complete sentences. There is no accessory muscle use. He does have prolonged expirations with audible wheezing.) - HEENT HEENT: Pharynx benign - Neck Neck: Supple, no meningeal sign, No adenopathy - Cardiac Cardiac: RRR, No murmur - Respiratory Respiratory: No: Clear bilaterally (There is diffuse expiratory wheezing without any noted coarse sounds. There are faint crackles at both bases.) - Abdomen Abdomen: Soft, Non tender - Back Back: No CVA TTP - Derm Derm: Normal color, Warm and dry - Extremities Extremities: Normal ROM s pain, No calf tenderness / cord, Other (1+ edema noted in both ankles and lower legs. It does not extend up to the knees.) - Neuro Neuro: Alert and oriented X 3, No motor deficit, Normal speech Results - Vitals Vitals: Vital Signs - 24 hr 10/09/19 10/09/19 10/09/19 12:52 12:56 13:11 Temperature 36.6 C Heart Rate 60 61 67 Respiratory 26 H 24 9 L Rate Blood Pressure 138/98 H 126/112 H O2 Saturation 97 96 10/09/19 10/09/19 10/09/19 13:22 13:36 14:17 Temperature 36.8 C Heart Rate 76 69 79 Respiratory 26 H 11 L 10 L Rate Blood Pressure 143/84 H O2 Saturation 92 10/09/19 10/09/19 14:26 15:25 Temperature 36.8 C Heart Rate 74 71 Respiratory 14 14 Rate Blood Pressure 121/86 H O2 Saturation 100 Oxygen O2 Source Room air - EKG (time done) 12:55 Rate: Rate (enter#) (80) Rhythm: Paced Gilbert: LAD Intervals: LBBB Ischemia: Non specific changes Compare to prior EKG: Unchanged from prior EKG - Labs Labs: Laboratory Tests 10/09/19 10/09/19 10/09/19 12:59 12:59 12:59 WBC 9.1 RBC 5.15 Hgb 15.0 Hct 48.7 MCV 94.6 H MCH 29.1 MCHC 30.8 L RDW 14.1 Plt Count 181 MPV 11.2 Neut # (Auto) 5.3 Lymph # (Auto) 2.6 [place] # (Auto) 0.9 Eos # (Auto) 0.1 Baso # (Auto) 0.1 Absolute Nucleated RBC 0.00 Nucleated RBC % 0.0 Sodium 139 Potassium 4.8 Chloride 98 L Carbon Dioxide 33 H Anion Gap 8.0 BUN 32 H Creatinine 1.3 H Estimated GFR (MDRD) 57 L Glucose 176 H Calcium 9.4 Magnesium 2.4 Total Bilirubin 0.9 AST 20 ALT 18 Alkaline Phosphatase 38 L Troponin I High Sens 44.3 H* B-Natriuretic Peptide Total Protein 7.6 Albumin 4.6 Globulin 3.0 Albumin/Globulin Ratio 1.5 Lipase 47 Last Dose Date Last Dose Time Digoxin 10/09/19 10/09/19 10/09/19 12:59 12:59 14:15 WBC RBC Hgb Hct MCV MCH MCHC RDW Plt Count MPV Neut # (Auto) Lymph # (Auto) [place] # (Auto) Eos # (Auto) Baso # (Auto) Absolute Nucleated RBC Nucleated RBC % Sodium Potassium Chloride Carbon Dioxide Anion Gap BUN Creatinine Estimated GFR (MDRD) Glucose Calcium Magnesium Total Bilirubin AST ALT Alkaline Phosphatase Troponin I High Sens 43.1 H* B-Natriuretic Peptide 394 H Total Protein Albumin Globulin Albumin/Globulin Ratio Lipase Last Dose Date UNK Last Dose Time UNK Digoxin 0.3 PD MEDICAL DECISION MAKING - ED course Complexity details: reviewed results (No signs of pneumonia. He does not appear to be in congestive heart failure significantly. There is no obvious congestion on the chest x-ray and his BNP is only minimally elevated in the 300s. He does have some pedal edema on both legs. Mainly he has the wheezing and cough so sounds like an exacerbation of COPD/asthma. He is having need for frequent nebulizers and his oxygenation goes down to 90 to 92% and then improves after nebulizer. I think he would benefit from more aggressive treatment in the hospital short-term.), re-evaluated patient (He does improve his breathing with the nebulizer treatments and is less wheezy. However within half an hour or so he is having wheezing again and his oxygenation decreased to 90 to 92% on room air. We will provide some supplemental oxygen. Repeat nebulizer treatments. Can try some magnesium IV for smooth muscle relaxant. He was given IV steroids. Can add antibiotic for possibility of infection.), considered differential (He has been having some cough and congestion with progressive dyspnea and wheezing. It sounds more likely COPD flareup. He does have some increased edema over baseline so consideration of an effect on his CHF with cardiomyopathy. He denies any ischemic heart disease in the past or heart attacks. 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[place].), d/w patient, d/w engineering consultant (Hospitalist) Departure - Departure Disposition: ED Place in Observation Clinical Impression: Upper respiratory infection Qualifiers: URI type: unspecified URI Qualified Code(s): J06.9 - Acute upper respiratory infection, unspecified Exacerbation of asthma Qualifiers: Asthma severity: unspecified severity Asthma persistence: intermittent Qualified Code(s): J45.21 - Mild intermittent asthma with (acute) exacerbation Dyspnea Qualifiers: Dyspnea type: shortness of breath Qualified Code(s): R06.02 - Shortness of breath Cardiomyopathy Qualifiers: Cardiomyopathy type: unspecified Qualified Code(s): I42.9 - Cardiomyopathy, unspecified Condition: Stable Record reviewed to determine appropriate education?: Yes
[2019-10-09] MEDS ORDERED: ALBUTEROL NEB 2.5 MG/3 ML INH STA ×4 (12:59→15:50)
[2019-10-09 13:11] LABS: BASOPHILS # (AUTO) 0.1 10^3/uL (0.0-0.1); BASOPHILS % (AUTO) 0.6 %; EOSINOPHILS # (AUTO) 0.1 10^3/uL (0.0-0.7); EOSINOPHILS % (AUTO) 1.5 %; LYMPHOCYTES # (AUTO) 2.6 10^3/uL (1.5-3.5); LYMPHOCYTES % (AUTO) 28.4 %; MEAN CORPUSCULAR HEMOGLOBIN 29.1 pg (27.0-31.0); MEAN CORPUSCULAR HGB CONC 30.8 g/dL (32.0-36.0); MEAN CORPUSCULAR VOLUME 94.6 fL (80.0-94.0); MEAN PLATELET VOLUME 11.2 fL (7.4-11.4); MONOCYTES # (AUTO) 0.9 10^3/uL (0.0-1.0); MONOCYTES % (AUTO) 10.4 %; NEUTROPHILS # (AUTO) 5.3 10^3/uL (1.5-6.6); NEUTROPHILS % (AUTO) 58.7 %; PLT - PLATELET COUNT 181 10^3/uL (130-450); RED BLOOD COUNT 5.15 10^6/uL (4.70-6.10); RED CELL DISTRIBUTION WIDTH 14.1 % (12.0-15.0); WHITE BLOOD COUNT 9.1 x10^3/uL (4.8-10.8)
[2019-10-09] MEDS ORDERED: DEXAMETHASONE 10 MG/ML VIAL IVP STA (13:20)
[2019-10-09] MEDS ORDERED: MORPHINE 2 MG/ML CARPUJECT IVP STA (13:26)
[2019-10-09] MEDS ORDERED: IPRATROPIUM/ALBUTEROL 3 ML NEB INH STA (13:26)
[2019-10-09 13:37] LABS: DIGOXIN 0.3 ng/mL
--- NOTE | 2019-10-09 13:41 | XRAY Report ---
Reason: chest pain Procedure Date: 10/09/2019 Accession Number: [id number] / [id number] Procedure: XR - Chest 1 View X-Ray CPT Code: 02101 Final Report FULL RESULT: EXAM: CHEST RADIOGRAPHY EXAM DATE: 10/09/2019 01:11 PM. CLINICAL HISTORY: Chest pain. COMPARISON: CHEST 2 VIEW 08/29/2019 3:44 PM. TECHNIQUE: 1 view. FINDINGS: Lungs/Pleura: Shallow inspiratory effort. Mild vascular congestion. No focal opacities evident. No pleural effusion. No pneumothorax. Mediastinum: Cardiomegaly with dual-lead left subclavian transvenous pacemaker. Other: None. IMPRESSION: Clear lungs. Cardiomegaly. RADIA
[2019-10-09 13:48] LABS: CALCIUM 9.4 mg/dL (8.5-10.3); CREATININE 1.3 mg/dL (0.6-1.2); MAGNESIUM 2.4 mg/dL (1.7-2.8)
[2019-10-09 13:50] LABS: ALBUMIN 4.6 g/dL (3.2-5.5); ALBUMIN/GLOBULIN RATIO 1.5 (1.0-2.2); BILIRUBIN,TOTAL 0.9 mg/dL (0.2-1.0); TOTAL PROTEIN 7.6 g/dL (6.7-8.2)
[2019-10-09] MEDS ORDERED: MAGNESIUM SULFATE 2 GRAM 2 GM/50 ML BAG IV ONE (14:03)
[2019-10-09] MEDS ORDERED: cefTRIAXone 1 GM VIAL IVP STA (14:32)
[2019-10-09] MEDS ORDERED: FUROSEMIDE 20 MG/2 ML VIAL IVP STA (14:33)
[2019-10-09] MEDS ORDERED: HYDROmorphone 1 MG/ML CARPUJECT IVP STA (15:12)
[2019-10-09] MEDS ORDERED: FUROSEMIDE 40 MG/4 ML VIAL IVP STA (19:47)
[2019-10-09] MEDS ORDERED: SODIUM CHLORIDE FLUSH 0.9% 10 ML SYRINGE IVP PRN (19:49)
[2019-10-09] MEDS: INSULIN ASPART 300 UNIT/3 ML PEN SUBQ SCH ×2 (20:03→22:01)
[2019-10-09] MEDS: SODIUM CHLORIDE FLUSH 0.9% 10 ML SYRINGE IVP SCH (20:06)
[2019-10-09] MEDS: HYDROcod/ACETAM 5/325 MG TABLET PO PRN (20:13)
--- NOTE | 2019-10-09 20:46 | HISTORY & PHYSICAL EXAMINATION ---
Chief Complaint - Chief Complaint Chief Complaint: dyspnea, chest tightness History of Present Illness - Admitted From Admitted From:: [facility] ED - History Obtained From Records Reviewed: yes History obtained from: patient - History of Present Illness HPI Comment/Other: Patient is a 59 y/o male who presented with dyspnea and cough. He was exp eriencing similar symptoms 2 weeks ago and presented to the ED where he was given a Zpak. He reports initially feeling better, then his symptoms returned. It was reported that upon presentation to the ED, he was audibly wheezing and had an O2Sat of 90%. He also complained of chest tightness and a nonproductive cough. He has been nauseous and vomited but denied abdominal pain. He reports chills but no fever. he is being admitted as observation and for further management History - Past Medical History Cardiovascular: reports: Congestive heart failure, Hypertension, High cholesterol, Atrial fibrillation, Arrhythmia Respiratory: reports: Asthma, COPD, Sleep apnea Endocrine/Autoimmune: reports: Type 2 diabetes GI: reports: GERD : reports: None Psych: reports: Anxiety, Panic attacks Musculoskeletal: reports: Rheumatoid arthritis, Gout, Chronic back pain Derm: reports: None MRSA Hx?: No - Past Surgical History General: reports: Cholecystectomy Cardiovascular: reports: Pacemaker, AICD - Family & Social History Family History: Father: [place], Brother: Alcoholism Social History Notes: Lives with his son in [place]. Smokes marijuana daily. has history of methamphetamine use in the past. He denies alcohol or use of tobacco products. - POLST Patient has POLST: No POLST Status: Full Code Meds/Allgy - Home Medications Home Medications: Ambulatory Orders Medication Instructions Recorded Confirmed Carvedilol 25 mg PO BID 02/09/14 06/19/19 Citalopram Hydrobromide 10 mg PO BID 02/09/14 06/19/19 [Citalopram HBr] Digoxin [Lanoxin] 125 mcg PO DAILY 02/09/14 06/19/19 Furosemide [Lasix] 40 mg PO DAILY 02/09/14 06/19/19 Nitroglycerin [Nitrostat] 0.4 mg SL Q5MIN PRN 02/09/14 06/19/19 Pravastatin Sodium 20 mg PO HS 02/09/14 06/19/19 LORazepam [Ativan] 0.5 - 1 mg PO Q6H PRN #14 tablet 09/18/16 06/19/19 Albuterol Sulf [Ventolin Hfa 1 - 2 puffs INH Q4HR PRN #1 inhaler 01/08/18 06/19/19 Inhaler] Aspirin [Adult Aspirin Regimen] 81 mg PO DAILY 06/19/19 06/19/19 Insulin Aspart [NovoLOG] 0 - 10 unit SUBQ TIDWM 06/19/19 06/19/19 Insulin Glargine [Lantus Solostar] 24 unit SQ DAILY 06/19/19 07/27/19 SITagliptin [Januvia] 100 mg PO DAILY 06/19/19 06/19/19 Sildenafil Citrate [Sildenafil] 60 - 100 mg PO DAILY 06/19/19 06/19/19 hydrOXYzine HCl [Hydroxyzine HCl] 25 mg PO QID 06/19/19 06/19/19 Albuterol 2.5 mg INH Q4H PRN #30 neb 08/29/19 Azithromycin [Zithromax] 250 mg PO DAILY #6 tablet 08/29/19 Nebulizer [Aeroneb Go Nebulizer] 1 each MC Q4HR PRN #1 each 08/29/19 predniSONE [Deltasone] 10 mg PO ONCE #26 tablet 08/29/19 - Allergies Allergies/Adverse Reactions: Allergies Allergy/AdvReac Type Severity Reaction Status Date / Time metformin AdvReac Nausea Verified 10/09/19 12:52 Review of Systems - Constitutional Constitutional: reports: Chills. denies: Fatigue, Fever, Weakness, Poor appetit e - Eyes Eyes: denies: Pain, Blurred vision, Vision loss, Dipolpia - Ears, Nose & Throat Ears, Nose & Throat: denies: Tinnitus, Vertigo, Sore throat - Cardiovascular Cariovascular: reports: Edema (+1 edema). denies: Irregular heart rate, Palpitations, Chest pain - Respiratory Respiratory: reports: SOB at rest, SOB with exertion. denies: Cough, Wheezing, Snoring - Gastrointestinal Gastrointestinal: reports: Nausea, Vomiting, Reflux/heartburn. denies: Abdominal pain, Abdominal distention, Constipation, Diarrhea - Genitourinary Genitourinary: denies: Dysuria, Frequency, Urgency, Hematuria - Musculoskeletal Musculoskeletal: denies: Muscle pain, Back pain, Muscle aches, Stiffness - Integumentary Integumentary: denies: Rash, Pruritis, Lesions, Dryness - Neurological Neurological: denies: General weakness, Focal weakness, Headache - Psychiatric Psychiatric: denies: Depression, Anxiety - Endocrine Endocrine: denies: Polyuria, Polydypsia - Hematologic/Lymphatic Hematologic/Lymphatic: denies: Anemia, Bruising, Petechiae Prior Level of Functionality: Patient is independent of activities of daily living Exam - Vital Signs Vital Signs: Vital Signs x48h Temp Pulse Pulse Resp BP BP Pulse Ox 10/09/19 17:35 36.4 C L 61 18 129/93 H 93 10/09/19 16:41 66 14 142/80 H 98 10/09/19 16:11 79 21 10/09/19 15:53 36.4 C L 60 32 H 139/115 H 95 10/09/19 15:25 71 14 10/09/19 14:26 36.8 C 74 14 121/86 H 100 10/09/19 14:17 79 10 L 10/09/19 13:36 69 11 L 10/09/19 13:22 36.8 C 76 26 H 143/84 H 92 10/09/19 13:11 67 9 L 10/09/19 12:56 61 24 126/112 H 96 10/09/19 12:52 36.6 C 60 26 H 138/98 H 97 - Physical Exam General Appearance: positive: Alert, Mild distress. negative: Anxious, Lethargic Eyes Bilateral: positive: Normal inspection, PERRL, EOMI ENT: positive: ENT inspection nml, No signs of dehydration Neck: positive: Nml inspection, No JVD, Trachea midline Respiratory: positive: Chest non-tender, Other (coarse breath sound). negative: Wheezes, Rales, Rhonchi Cardiovascular: positive: Regular rate & rhythm, No murmur Abdomen: positive: Non-tender, No organomegaly, Nml bowel sounds, No distention. negative: Guarding, Rebound Back: positive: Nml inspection Skin: positive: Color nml, No rash, Warm, Dry Extremities: positive: Non-tender, Full ROM, Nml appearance, Pedal edema (trace to +1) Neurologic/Psychiatric: positive: Oriented x3, Motor nml, Mood/affect nml Conclusion/Plan - Problem List (1) Dyspnea Conclusion/Plan: 2/2 ?CHF vs COPD vs Asthma vs Reactive airway Patient received a total of 60mg IV lasix Will check 2D echo in the morning. Patient give a dose of dexamethasone in the ED Duonebs ordered prn Patient given a dose of rocephin in the ED. Will not continue antibiotics Qualifiers: Dyspnea type: shortness of breath Qualified Code(s): R06.02 - Shortness of breath; R06.00 - Dyspnea, unspecified; R06.01 - Orthopnea (2) Elevated troponin Conclusion/Plan: Likely 2/2 dyspnea ?2/2 CHF Troponin trended down. 44 to 43 to 30 Await 2D echo in the am (3) Congestive heart failure Conclusion/Plan: Resume lasix, carvedilol, digoxin, aspirin and statin once verified Patient has an AICD. 2D echo ordered Qualifiers: Qualified Code(s): I50.9 - Heart failure, unspecified (4) Hyperlipidemia Conclusion/Plan: On pravastatin Resume once verified (5) Diabetes mellitus Conclusion/Plan: On Januvia, Regular insulin and lantus SSI and accu check ordered. Will resume lantus once dose verified (6) Depression Conclusion/Plan: On citalopram. Resume once verified (7) Anxiety Conclusion/Plan: On ativan Resume once verified (8) GERD (gastroesophageal reflux disease) Conclusion/Plan: Protonix ordered - Lab Results Fish Bones: 10/09/19 12:59 10/09/19 12:59 Core Measures - Anticipated LOS I expect patient to be DC'd or transferred within 96 hours.: Yes - DVT/VTE - Prophylaxis VTE/DVT Device ordered at admit?: Yes
[2019-10-09] MEDS: IPRATROPIUM/ALBUTEROL 3 ML NEB INH SCH (21:55)
[2019-10-10] MEDS: traZODone 50 MG TABLET PO SCH ×2 (00:33→20:49)
[2019-10-10] MEDS: HYDROcod/ACETAM 5/325 MG TABLET PO PRN ×3 (00:34→16:12)
[2019-10-10] MEDS: IPRATROPIUM/ALBUTEROL 3 ML NEB INH PRN ×3 (01:01→14:57)
[2019-10-10] MEDS ORDERED: traMADol 50 MG TABLET PO PRN (05:11)
[2019-10-10 05:45] LABS: BASOPHILS % (AUTO) 0.1 %; HGB - HEMOGLOBIN 13.7 g/dL (14.0-18.0); LYMPHOCYTES # (AUTO) 1.3 10^3/uL (1.5-3.5); LYMPHOCYTES % (AUTO) 13.1 %; MEAN CORPUSCULAR HEMOGLOBIN 28.6 pg (27.0-31.0); MEAN CORPUSCULAR HGB CONC 31.3 g/dL (32.0-36.0); MEAN CORPUSCULAR VOLUME 91.4 fL (80.0-94.0); MEAN PLATELET VOLUME 11.6 fL (7.4-11.4); MONOCYTES # (AUTO) 0.4 10^3/uL (0.0-1.0); MONOCYTES % (AUTO) 4.2 %; NEUTROPHILS % (AUTO) 81.9 %; PLT - PLATELET COUNT 150 10^3/uL (130-450); RED BLOOD COUNT 4.79 10^6/uL (4.70-6.10); RED CELL DISTRIBUTION WIDTH 14.3 % (12.0-15.0); WHITE BLOOD COUNT 9.7 x10^3/uL (4.8-10.8)
[2019-10-10 05:56] LABS: CALCIUM 8.9 mg/dL (8.5-10.3); CREATININE 1.3 mg/dL (0.6-1.2)
[2019-10-10] MEDS: guaiFENesin/CODEINE 5 ML UDC PO PRN ×2 (06:00→20:52)
[2019-10-10] MEDS ORDERED: PANTOPRAZOLE 40 MG TABLET PO SCH (07:00)
[2019-10-10] MEDS: SODIUM CHLORIDE FLUSH 0.9% 10 ML SYRINGE IVP SCH ×2 (08:09→16:13)
[2019-10-10] MEDS: ENOXAPARIN 40 MG/0.4 ML SYRINGE SUBQ SCH (08:09)
[2019-10-10] MEDS: INSULIN ASPART 300 UNIT/3 ML PEN SUBQ SCH ×4 (08:10→20:56)
[2019-10-10] MEDS: IPRATROPIUM/ALBUTEROL 3 ML NEB INH SCH (08:24)
[2019-10-10] MEDS: FUROSEMIDE 40 MG/4 ML VIAL IVP SCH ×2 (09:17→14:51)
--- NOTE | 2019-10-10 10:48 | PROVIDER PROGRESS NOTE ---
Subjective - Prog Note Date Prog Note Date: 10/10/19 (seen ~ 8am initially) Prog Note Time: 10:45 - Subjective Subjective: seen just after echo, notes he is still a bit winded even just lying in bed cant articulate well how much he voids after lasix at home Does not weigh self, does not know "dry weight" says he sees candy feeder q 6 mos (per [facility] that is just device check, last cardiology appt was with MARTINE 12/05/18) He reports recent echo (per [facility], last echo 2014 EF 35-40%) Patient takes his lantus in the evening, he reports recently being advised to increase from 20 units each pm to 39 (has only taken 1 (?) does of 39 Current Medications - Current Medications Current Medications: Active Medications Hydrocodone Bitart/Acetaminophen ([place] 5/325) 1 tab PO Q4HR PRN PRN Reason: Pain 5 to 7 Last Admin: 10/10/19 09:17 Dose: 1 tab Albuterol/Ipratropium (Duoneb) 3 ml INH RTQID JITENDRA Last Admin: 10/10/19 08:24 Dose: 3 ml Albuterol/Ipratropium (Duoneb) 3 ml INH Q4HR PRN PRN Reason: Wheezing Last Admin: 10/10/19 05:39 Dose: 3 ml Enoxaparin Sodium (Lovenox) 40 mg SUBQ DAILY JITENDRA Last Admin: 10/10/19 08:09 Dose: 40 mg Furosemide (Lasix Inj 40 Mg Vial) 40 mg IVP BIDDIURETIC JITENDRA Last Admin: 10/10/19 09:17 Dose: 40 mg Guaifenesin/Codeine Phosphate (Robitussin Ac) 5 ml PO Q6HR PRN PRN Reason: Cough Last Admin: 10/10/19 06:00 Dose: 5 ml Insulin Aspart (Novolog) 2 - 10 unit SUBQ 0800,1200,1700,2100 JITENDRA; Protocol Last Admin: 10/10/19 08:10 Dose: 6 unit Pantoprazole Sodium (Protonix) 40 mg PO QDAC JITENDRA Last Admin: 10/10/19 06:00 Dose: 40 mg Sodium Chloride (Normal Saline Flush 0.9%) 10 ml IVP PRN PRN PRN Reason: NEEDED PER PROVIDER ORDERS Last Admin: 10/10/19 00:34 Dose: 10 ml Sodium Chloride (Normal Saline Flush 0.9%) 10 ml IVP 0100,0900,1700 [facility] Last Admin: 10/10/19 08:09 Dose: 10 ml Tramadol HCl (Ultram) 50 mg PO Q4HR PRN PRN Reason: PAIN Trazodone HCl (Desyrel) 50 mg PO QPM [facility] Last Admin: 10/10/19 00:33 Dose: 50 mg Carvedilol 25 mg PO BID 02/09/14 Citalopram Hydrobromide [Citalopram HBr] 10 mg PO BID 02/09/14 Digoxin [Lanoxin] 125 mcg PO DAILY 02/09/14 Furosemide [Lasix] 40 mg PO DAILY 02/09/14 Nitroglycerin [Nitrostat] 0.4 mg SL Q5MIN PRN 02/09/14 Pravastatin Sodium 20 mg PO HS 02/09/14 Aspirin [Adult Aspirin Regimen] 81 mg PO DAILY 06/19/19 Insulin Aspart [NovoLOG] 0 - 10 unit SUBQ TIDWM 06/19/19 Insulin Glargine [Lantus Solostar] 24 unit SQ DAILY 06/19/19 SITagliptin [Januvia] 100 mg PO DAILY 06/19/19 Sildenafil Citrate [Sildenafil] 60 - 100 mg PO DAILY 06/19/19 hydrOXYzine HCl [Hydroxyzine HCl] 25 mg PO QID 06/19/19 Objective - Vital Signs/Intake & Output Reviewed Vital Signs: Yes Vital Signs: Vital Signs x48h Temp Pulse Pulse Resp BP Pulse Ox 10/10/19 08:27 60 18 10/10/19 07:41 36.5 C 59 L 18 120/74 96 10/10/19 05:40 63 16 10/10/19 03:44 36.4 C L 61 20 116/76 92 Intake & Output: Intake & Output 10/07/19 10/08/19 10/09/19 10/10/19 23:59 23:59 23:59 23:59 Intake Total 490 910 Output Total 8429 1100 Balance -2135 -190 - Objective General Appearance: positive: No acute distress, Other (heavy set man appears older than stated age, awake, alert, lying in bed, no acute dyspnea at rest ~ 2 cm soft nodule (? lipoma on forehead) Eyes Bilateral: positive: Normal inspection Neck: positive: Other (full neck) Respiratory: positive: No respiratory distress, Breath sounds nml Cardiovascular: positive: Regular rate & rhythm, No murmur Abdomen: positive: Nml bowel sounds, No distention, Other (generous abdomen) Skin: positive: Warm, Dry Extremities: positive: Pedal edema (trace) Neurologic/Psychiatric: positive: Oriented x3, Other (very simple in conversation) - Lab Results Fish Bones: 10/11/19 05:15 10/11/19 05:15 Other Labs: Lab Results x24hrs 10/10/19 10/10/19 10/10/19 Range/Units 07:30 05:17 05:17 WBC (4.8-10.8) x10^3/uL RBC (4.70-6.10) 10^6/uL Hgb (14.0-18.0) g/dL Hct (42.0-52.0) % MCV (80.0-94.0) fL MCH (27.0-31.0) pg MCHC (32.0-36.0) g/dL RDW (12.0-15.0) % Plt Count (130-450) 10^3/uL MPV (7.4-11.4) fL Neut # (Auto) (1.5-6.6) 10^3/uL Lymph # (Auto) (1.5-3.5) 10^3/uL Nelson # (Auto) (0.0-1.0) 10^3/uL Eos # (Auto) (0.0-0.7) 10^3/uL Baso # (Auto) (0.0-0.1) 10^3/uL Absolute Nucleated RBC x10^3/uL Nucleated RBC % /100WBC Sodium 138 (135-145) mmol/L Potassium 4.5 (3.5-5.0) mmol/L Chloride 97 L (101-111) mmol/L Carbon Dioxide 31 (21-32) mmol/L Anion Gap 10.0 (6-13) BUN 36 H (6-20) mg/dL Creatinine 1.3 H (0.6-1.2) mg/dL Estimated GFR (MDRD) 57 L (>89) Glucose 241 H (70-100) mg/dL POC Whole Bld Glucose 236 H (70 - 100) mg/dL Calcium 8.9 (8.5-10.3) mg/dL Magnesium (1.7-2.8) mg/dL Total Bilirubin (0.2-1.0) mg/dL AST (10-42) IU/L ALT (10-60) IU/L Alkaline Phosphatase (42-121) IU/L Troponin I High Sens (2.3-19.7) ng/L B-Natriuretic Peptide 530 H (5-100) pg/mL Total Protein (6.7-8.2) g/dL Albumin (3.2-5.5) g/dL Globulin (2.1-4.2) g/dL Albumin/Globulin Ratio (1.0-2.2) Lipase (22-51) U/L Last Dose Date Last Dose Time Digoxin ng/mL 10/10/19 10/09/19 10/09/19 Range/Units 05:17 21:48 20:06 WBC 9.7 (4.8-10.8) x10^3/uL RBC 4.79 (4.70-6.10) 10^6/uL Hgb 13.7 L (14.0-18.0) g/dL Hct 43.8 (42.0-52.0) % MCV 91.4 (80.0-94.0) fL MCH 28.6 (27.0-31.0) pg MCHC 31.3 L (32.0-36.0) g/dL RDW 14.3 (12.0-15.0) % Plt Count 150 (130-450) 10^3/uL MPV 11.6 H (7.4-11.4) fL Neut # (Auto) 8.0 H (1.5-6.6) 10^3/uL Lymph # (Auto) 1.3 L (1.5-3.5) 10^3/uL Nelson # (Auto) 0.4 (0.0-1.0) 10^3/uL Eos # (Auto) 0.0 (0.0-0.7) 10^3/uL Baso # (Auto) 0.0 (0.0-0.1) 10^3/uL Absolute Nucleated RBC 0.00 x10^3/uL Nucleated RBC % 0.0 /100WBC Sodium (135-145) mmol/L Potassium (3.5-5.0) mmol/L Chloride (101-111) mmol/L Carbon Dioxide (21-32) mmol/L Anion Gap (6-13) BUN (6-20) mg/dL Creatinine (0.6-1.2) mg/dL Estimated GFR (MDRD) (>89) Glucose (70-100) mg/dL POC Whole Bld Glucose 275 H (70 - 100) mg/dL Calcium (8.5-10.3) mg/dL Magnesium (1.7-2.8) mg/dL Total Bilirubin (0.2-1.0) mg/dL AST (10-42) IU/L ALT (10-60) IU/L Alkaline Phosphatase (42-121) IU/L Troponin I High Sens 30.1 H* (2.3-19.7) ng/L B-Natriuretic Peptide (5-100) pg/mL Total Protein (6.7-8.2) g/dL Albumin (3.2-5.5) g/dL Globulin (2.1-4.2) g/dL Albumin/Globulin Ratio (1.0-2.2) Lipase (22-51) U/L Last Dose Date Last Dose Time Digoxin ng/mL 10/09/19 10/09/19 10/09/19 Range/Units 18:00 14:15 12:59 WBC (4.8-10.8) x10^3/uL RBC (4.70-6.10) 10^6/uL Hgb (14.0-18.0) g/dL Hct (42.0-52.0) % MCV (80.0-94.0) fL MCH (27.0-31.0) pg MCHC (32.0-36.0) g/dL RDW (12.0-15.0) % Plt Count (130-450) 10^3/uL MPV (7.4-11.4) fL Neut # (Auto) (1.5-6.6) 10^3/uL Lymph # (Auto) (1.5-3.5) 10^3/uL Nelson # (Auto) (0.0-1.0) 10^3/uL Eos # (Auto) (0.0-0.7) 10^3/uL Baso # (Auto) (0.0-0.1) 10^3/uL Absolute Nucleated RBC x10^3/uL Nucleated RBC % /100WBC Sodium (135-145) mmol/L Potassium (3.5-5.0) mmol/L Chloride (101-111) mmol/L Carbon Dioxide (21-32) mmol/L Anion Gap (6-13) BUN (6-20) mg/dL Creatinine (0.6-1.2) mg/dL Estimated GFR (MDRD) (>89) Glucose (70-100) mg/dL POC Whole Bld Glucose 237 H (70 - 100) mg/dL Calcium (8.5-10.3) mg/dL Magnesium (1.7-2.8) mg/dL Total Bilirubin (0.2-1.0) mg/dL AST (10-42) IU/L ALT (10-60) IU/L Alkaline Phosphatase (42-121) IU/L Troponin I High Sens 43.1 H* (2.3-19.7) ng/L B-Natriuretic Peptide (5-100) pg/mL Total Protein (6.7-8.2) g/dL Albumin (3.2-5.5) g/dL Globulin (2.1-4.2) g/dL Albumin/Globulin Ratio (1.0-2.2) Lipase (22-51) U/L Last Dose Date UNK Last Dose Time UNK Digoxin 0.3 ng/mL 10/09/19 10/09/19 10/09/19 Range/Units 12:59 12:59 12:59 WBC (4.8-10.8) x10^3/uL RBC (4.70-6.10) 10^6/uL Hgb (14.0-18.0) g/dL Hct (42.0-52.0) % MCV (80.0-94.0) fL MCH (27.0-31.0) pg MCHC (32.0-36.0) g/dL RDW (12.0-15.0) % Plt Count (130-450) 10^3/uL MPV (7.4-11.4) fL Neut # (Auto) (1.5-6.6) 10^3/uL Lymph # (Auto) (1.5-3.5) 10^3/uL Nelson # (Auto) (0.0-1.0) 10^3/uL Eos # (Auto) (0.0-0.7) 10^3/uL Baso # (Auto) (0.0-0.1) 10^3/uL Absolute Nucleated RBC x10^3/uL Nucleated RBC % /100WBC Sodium 139 (135-145) mmol/L Potassium 4.8 (3.5-5.0) mmol/L Chloride 98 L (101-111) mmol/L Carbon Dioxide 33 H (21-32) mmol/L Anion Gap 8.0 (6-13) BUN 32 H (6-20) mg/dL Creatinine 1.3 H (0.6-1.2) mg/dL Estimated GFR (MDRD) 57 L (>89) Glucose 176 H (70-100) mg/dL POC Whole Bld Glucose (70 - 100) mg/dL Calcium 9.4 (8.5-10.3) mg/dL Magnesium 2.4 (1.7-2.8) mg/dL Total Bilirubin 0.9 (0.2-1.0) mg/dL AST 20 (10-42) IU/L ALT 18 (10-60) IU/L Alkaline Phosphatase 38 L (42-121) IU/L Troponin I High Sens 44.3 H* (2.3-19.7) ng/L B-Natriuretic Peptide 394 H (5-100) pg/mL Total Protein 7.6 (6.7-8.2) g/dL Albumin 4.6 (3.2-5.5) g/dL Globulin 3.0 (2.1-4.2) g/dL Albumin/Globulin Ratio 1.5 (1.0-2.2) Lipase 47 (22-51) U/L Last Dose Date Last Dose Time Digoxin ng/mL 10/09/19 Range/Units 12:59 WBC 9.1 (4.8-10.8) x10^3/uL RBC 5.15 (4.70-6.10) 10^6/uL Hgb 15.0 (14.0-18.0) g/dL Hct 48.7 (42.0-52.0) % MCV 94.6 H (80.0-94.0) fL MCH 29.1 (27.0-31.0) pg MCHC 30.8 L (32.0-36.0) g/dL RDW 14.1 (12.0-15.0) % Plt Count 181 (130-450) 10^3/uL MPV 11.2 (7.4-11.4) fL Neut # (Auto) 5.3 (1.5-6.6) 10^3/uL Lymph # (Auto) 2.6 (1.5-3.5) 10^3/uL Nelson # (Auto) 0.9 (0.0-1.0) 10^3/uL Eos # (Auto) 0.1 (0.0-0.7) 10^3/uL Baso # (Auto) 0.1 (0.0-0.1) 10^3/uL Absolute Nucleated RBC 0.00 x10^3/uL Nucleated RBC % 0.0 /100WBC Sodium (135-145) mmol/L Potassium (3.5-5.0) mmol/L Chloride (101-111) mmol/L Carbon Dioxide (21-32) mmol/L Anion Gap (6-13) BUN (6-20) mg/dL Creatinine (0.6-1.2) mg/dL Estimated GFR (MDRD) (>89) Glucose (70-100) mg/dL POC Whole Bld Glucose (70 - 100) mg/dL Calcium (8.5-10.3) mg/dL Magnesium (1.7-2.8) mg/dL Total Bilirubin (0.2-1.0) mg/dL AST (10-42) IU/L ALT (10-60) IU/L Alkaline Phosphatase (42-121) IU/L Troponin I High Sens (2.3-19.7) ng/L B-Natriuretic Peptide (5-100) pg/mL Total Protein (6.7-8.2) g/dL Albumin (3.2-5.5) g/dL Globulin (2.1-4.2) g/dL Albumin/Globulin Ratio (1.0-2.2) Lipase (22-51) U/L Last Dose Date Last Dose Time Digoxin ng/mL - Diagnostic Imaging Diagnostic Imaging Results: positive: Final report reviewed (CXR 10/09; mild vascular congestion, Clear lungs, cardiomegaly, dual lead L Pacer) Diagnostic Imaging Comments: echo; Good study Compared with 2013 here at [facility] 25- 30%%, [facility] 2014 35-40% preliminary read:25-30 EF, with severe globally impaired systolic function Also Grade II diastolic dysfunction Sever RVE, and moderately impaired RVsystolic fxn. No S, moderate MR, Mild TR with RVSP 65% Assessment/Plan - Problem List (1) Acute HFrEF (heart failure with reduced ejection fraction) Impression: Echo this morning with EF significantly reduced from 2013 echo ; now 20-25% BNP increased overnight Unclear precipitant, needs outpatient ischemia work up, suboptimal Rx management, hx of afib, but no evident tachycardia here Lasix increased to BID by soil surveyor, At home is on Digoxin, coreg; Per [facility] records;"BP intoleratn of ACEI/ARB in past" however there are 12/2017 ED notes here that patient was at some point on lisinorpil 20 bid and coreg 9.35 bid Recods obtained from [facility]; "intolerant to ACEI/ARB due to hypotension 12/05/2018 note Ideally would initially opitimize med management w/ BB, ACI vs ARB, but given how low EF is will check with cardiology if entresto recommended (and will need to see if he can financially even get entresto as outpatient Update>>>>d/w It Systems Administrator at [facility] (Dr Wilson; he indicated even low dose Entresto would likely be too high if intolerant/hypotensive in past, BUT, he did suggest -retrying much lower dose of ACEI -Since we have luxury of watching will give 2.5 mg lisinopril tonight -Continue bid Coreg 25 (if needed may reduce to 12.5 bid to allow acei) - Add low dose sprionolactone -Continue dig given hx afib HAS had good response to todays lasix, Continue BID Orthos before AM dose Lasix Will ambulate in am and eval if subjective improvement in activity tolerance Creatinine 1.3 on admit (1.2 in january and May 2019, 1.1 in 2018; Recheck weight in am; establish dry weight will need Kchecked on f/u If d/c in am after diuresis, need f/u soon in cardiology office ? hx afib per [place] [facility] records (none here) Sylvia sending records; PCP is Reshma last visit 12/05/2018) Will stop scheduled albuterol, to minimize relatead increased heart rate w/ EF 20 (2) Diabetes mellitus Impression: uncontrolled reports lantus 39 units daily at home (reconciled late in day) Will give lantus 30 this pm and reevaluate with likely insulin resistance, at 120kg, likely can gradually titrate to 0.5 u/kg (but dont know patient and will eval SSI needs) (3) Anxiety Impression: takes prn hydroxizine at home note does not take QID scheduled, just prn requesting dose tonight for anxiety I have also stopped scheduled duoneb in event adding to anxiety At this point his dyspnea seems r/t HFrEF , not RAD
[2019-10-10] MEDS ORDERED: NITROGLYCERIN SL 0.4 MG TABLET SL PRN (13:53)
[2019-10-10] MEDS ORDERED: hydrOXYzine PAMOATE 25 MG CAPSULE PO PRN (17:22)
[2019-10-10] MEDS: hydrOXYzine PAMOATE 25 MG CAPSULE PO PRN (18:29)
[2019-10-10] MEDS: carvediloL 12.5 MG TABLET PO SCH (20:50)
[2019-10-10] MEDS: CITALOPRAM HYDROBROMIDE 20 MG TABLET PO SCH (20:51)
[2019-10-10] MEDS: LISINOPRIL 5 MG TABLET PO SCH (20:51)
[2019-10-10] MEDS ORDERED: INSULIN GLARGINE 300 UNIT/3 ML PEN SUBQ SCH ×2 (21:00)
[2019-10-10] MEDS ORDERED: ATORVASTATIN 40 MG TABLET PO SCH (21:00)
[2019-10-10] MEDS ORDERED: hydrOXYzine PAMOATE 25 MG CAPSULE PO SCH (21:00)
[2019-10-11] MEDS: HYDROcod/ACETAM 5/325 MG TABLET PO PRN (00:19)
[2019-10-11] MEDS: SODIUM CHLORIDE FLUSH 0.9% 10 ML SYRINGE IVP SCH ×3 (00:19→15:41)
[2019-10-11] MEDS: guaiFENesin/CODEINE 5 ML UDC PO PRN ×2 (02:42→09:02)
[2019-10-11 05:26] LABS: BASOPHILS % (AUTO) 0.3 %; EOSINOPHILS # (AUTO) 0.1 10^3/uL (0.0-0.7); EOSINOPHILS % (AUTO) 0.9 %; HGB - HEMOGLOBIN 14.8 g/dL (14.0-18.0); LYMPHOCYTES # (AUTO) 2.4 10^3/uL (1.5-3.5); LYMPHOCYTES % (AUTO) 18.6 %; MEAN CORPUSCULAR HEMOGLOBIN 29.1 pg (27.0-31.0); MEAN CORPUSCULAR HGB CONC 31.6 g/dL (32.0-36.0); MEAN CORPUSCULAR VOLUME 92.3 fL (80.0-94.0); MEAN PLATELET VOLUME 11.1 fL (7.4-11.4); MONOCYTES # (AUTO) 1.2 10^3/uL (0.0-1.0); MONOCYTES % (AUTO) 9.5 %; NEUTROPHILS % (AUTO) 70.2 %; PLT - PLATELET COUNT 186 10^3/uL (130-450); RED BLOOD COUNT 5.08 10^6/uL (4.70-6.10); RED CELL DISTRIBUTION WIDTH 14.2 % (12.0-15.0); WHITE BLOOD COUNT 12.8 x10^3/uL (4.8-10.8)
[2019-10-11 05:33] LABS: CALCIUM 9.4 mg/dL (8.5-10.3); CREATININE 1.3 mg/dL (0.6-1.2)
[2019-10-11] MEDS ORDERED: ACETAMINOPHEN 500 MG TABLET PO PRN (07:37)
[2019-10-11] MEDS: IPRATROPIUM/ALBUTEROL 3 ML NEB INH PRN ×3 (07:52→15:11)
[2019-10-11] MEDS: carvediloL 12.5 MG TABLET PO SCH (08:03)
[2019-10-11] MEDS: ENOXAPARIN 40 MG/0.4 ML SYRINGE SUBQ SCH (08:03)
[2019-10-11] MEDS: LISINOPRIL 5 MG TABLET PO SCH (08:04)
[2019-10-11] MEDS: CITALOPRAM HYDROBROMIDE 20 MG TABLET PO SCH (08:05)
[2019-10-11] MEDS: INSULIN ASPART 300 UNIT/3 ML PEN SUBQ SCH ×3 (08:06→17:14)
[2019-10-11] MEDS ORDERED: INSULIN GLARGINE 300 UNIT/3 ML PEN SUBQ SCH (09:00)
[2019-10-11] MEDS ORDERED: ASPIRIN EC 81 MG TABLET PO SCH (09:00)
[2019-10-11] MEDS ORDERED: SPIRONOLACTONE 25 MG TABLET PO SCH (09:00)
[2019-10-11] MEDS ORDERED: DIGOXIN 125 MCG TABLET PO SCH (09:00)
[2019-10-11] MEDS: hydrOXYzine PAMOATE 25 MG CAPSULE PO PRN ×2 (10:01→15:02)
--- NOTE | 2019-10-11 12:32 | Discharge Plan ---
Discharge Plan Problem Reviewed?: Yes Disposition: Home, Self Care Condition: Stable Prescriptions: Lisinopril [Zestril] 2.5 mg PO DAILY #30 tablet Spironolactone [Aldactone] 12.5 mg PO DAILY #30 tablet Diet: Low Sodium (ideally less than 2-3 grams sodium per day Water hangs onto salt and a dietary salt load can trigger heart failure) Activity Restrictions: Activity as Tolerated (we tested your oxygen with walking, you do not need oxygen) Shower Restrictions: No Driving Restrictions: No Assistance Devices: Other (when needed keep using your roller or rolling wheelchair,) Plan of Treatment: Decompensated congestive heart failure You came to the hospital with shortness of breath, cough, fatigue Intially it was thought this could be an asthma attack or COPD (but you have never had pulmonary function tests and diagnosis of COPD) Your last echocardiogram at [facility] cardiology was 2014 with an EF (squeeze) of 35-40% New echocardiogram here at [facility]; heart failure has worsened, EF is now 20-25% and that is likely the main cause of your fatigue, and shortness of breath YOu are not "optimized" on the medications you are on for heart failure (which are to help your heart muscle) We added IV lasix to pull off fluid By 10/11 your oxygen stayed adequate even with ambulation Plan To help optimize your medication management 1) low dose lisinopril was added (2.5 mg each night) 2) low dose spironolactone was added (12.5 mg daily) 3) 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 will likely titrate these doses upward if your Blood pressure allows (when EF is 20-25%, a lower blood pressure is ok; there IS room to titrate these upward and they are very important medications 4) your potassium needs to be reckecked on follow up (it is ok (4.3 on discharge) 5) continue coreg 25 mg twice daily 6) continue digoxin 0.125 mg daily 7 ) continue lasix 40 mg daily BUT with close attention to daily weights 8) Daily weight (weighing body fluid and your kidneys ability to get adequate blood flow from your heart) If your weight increases by more than 2lbs in 1-2 days or more than 3 lbs in a week, take a 2nd dose of 40 mg Lasix to help prevent acute heart failure The cardiology clinic might increase this to twice daily regularly Your weight on 11/10 is 255 lbs. Weigh your self on arrival home . 9) we will put in a referral for heart failure clinic at [facility] 10 follow up appointment at [facility] cardiology with Physicians Assistant Diez on 10/19 ; arrive at 2pm PCP consider; Outpatient pulmonary function tests would be helpful to evaluate lung function (and if necessary outpatient pulmonary consultation) but the primary cause of your fatigue, shortness of breath is most related to the heart failure. Possibly you have pulmonary toxicity from the drug use years ago Diabetes: continue your home diabetes regimen. Care Goals: Optimize medical management of HFrEF (heart failure with a reduced ejection) No Smoking: If you smoke, Please STOP! Call for help. Follow-up with: Austin An PA-C [Primary Care Provider] - 1 Week (recheck potassium w/ addition of low dose acei , and spironolactone 4.3 on 10/11 (has cardiology appt 10/19) Recommend Outpatient PFT's)
--- NOTE | 2019-10-11 13:53 | DISCHARGE SUMMARY ---
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) followed at [facility] clinic Worsening EF on current echo (20-25% reduced from 35-40% in 2014 with inferior akinesis Optimizing medical management with addition of ACEI, spironolatone to regimen of Coreg, Digoxin and cardiology follow up 10/19 See detail below Pulmonary hypertension worsening, no oxygen requirement Recommend outpatient PFT's Diabetes Mellitus Patient recently had increase in lantus dosing No hypoglycemia here Will resume home regimen with lantus and prandial lispro on discharge Leukocytosis; related to steroid dose in ED No findings c/w infection - HPI History of Present Illness: 59 y/o male who presented with dyspnea and cough. He had similar symptoms 2 weeks ago and was given a Zpak in the ED. He reports initially feeling better, then his symptoms returned. It was reported that upon presentation to the ED, he was audibly wheezing and had an O2Sat of 90%. He also complained of chest tightness and a nonproductive cough. Some orthopnea. No fever. He denies missed meds, very briefly ran out of digoxin but has it now, Acknowledges occasional dietary indescretion with sodium intake, does not weigh self. Initial EKG with paced rhytm unchanged . Intial troponin 44>43>30 He has known dilated nonischemic cardiomyopathy (followed by [facility] cardiology), gets regular pacer checks, but has not had formal consult since Dec 05, 2018 and last echo with [facility] cardiology in 2014. Per patient, cause of HFrEF was 10 years of meth use. Patient admitted for evaluation of dyspnea - CONSULTS | PROCEDURES Consultations: none Procedures: Echocardiogram 10/09/2019 Compared with 2012 at [facility] 25-30% Mild to moderate pulmonary hypertension RVSP 50 ( [place] echo) 2014 35-40% Severe LVE Severe global reduction EF 20-25%; Inferior wall akinesis Grade II diastolic dysfunction Severe RVE Right ventricular enlargement , and moderately impaired RV systolic fxn. No S, moderate MR, Mild TR with RVSP 65% (increased from 65%) 12 lead EKG V Paced rhythm Rate 80, Unchanged from 11/10/18 (CXR 10/09; mild vascular congestion, Clear lungs, cardiomegaly, dual lead L Pacer) - HOSPITAL COURSE Hospital Course: 1) Heart Failure with Reduced EF, acute heart failure Echo shows EF significantly reduced from 2013 echo ; EF 20-25%, inferior wall Akinesis not noted 2014 Unclear when ischemic event occurred although his administrative manager did already have him on ASA and prn NTG Unclear precipitant of acute failure, Suboptimal medication managemnt currently , not on ACEI. Preciptiant could be salt load, no evidence for acute ischemic event, troponins flat, (but needs outpatient ischemia work up and at some point since last echo had IWMI,) hx of afib, but no evident tachycardia here At home is on Digoxin, coreg, and daily Lasix Per [facility] records;"BP intoleratn of ACEI/ARB in 12/05/2017 progress note /Discussed worsening EF with Dr. Wilson at [facility] He indicated if BP intolerant of ACEI, not Entresto candidate Dr Wilson advised try intiate very low dose ACEI for hopeful titration and (AT 25 mg bid coreg, there would be room to reduce BB to add AEI) Lisinorpil 2.5 mg q pm added on 11 pm with no hypotension Spironolactone 12.5 mg daily also added After Diuresis of ~ 5 -6 liters, patient with increased subjective energy Ambulated in halls; no hypoxia Plan; Has outpatient cardiolgy follow up at [facility] on 10/19 2pm Will need outpatient titration of ACEI, spironolactone with consideration of Entresto (if can afford) Continuing daily lasix with instruction to take BID if daily weight up by more than 2 lbs dc/ weight 116 kg standing (and did receive additional IV lasix dose after that) Continues coreg 25 mg po bid, Digoxin 0.125 mg daily, Lasix 40 mg daily (or bid as noted) New Rx for lisinopril 2.5 mg and spironolactone 12.5 mg Check K on follow up Referred CHF clinic at [facility] 2) CAD: Inferior wall Akiniesis, new since 2014 echo continues ASA, prn NTG, on beta tamar, ACEI (as of this admission) and statin Cardiology follow up , consider ischemic eval 3)) PUlmonary hypertension RVSP increased from prior echo No ambulatory oxygen requirement Outpatient PFT's would be helpful to determine if element of restrictive disease post meth Initially his symptoms were attributed to possible COPD flare or asthma (no prior dx), he received a single steroid dose in ED uterol, to minimize relatead increased heart rate w/ EF 20 (2) Diabetes mellitus patient will resume his home regimen 4) Leukocytosis On day 2 WBC 12.8 (9.7 at presentation) Patient was given a dose of IV corticosteroid in ED) No findings suggestive of infection - ALLERGIES Allergies/Adverse Reactions: Allergies Allergy/AdvReac Type Severity Reaction Status Date / Time metformin AdvReac Nausea Verified 10/09/19 12:52 - MEDICATIONS Home Medications: Ambulatory Orders Medication Instructions Recorded Confirmed Carvedilol 25 mg PO BID 02/09/14 10/10/19 Citalopram Hydrobromide 10 mg PO BID 02/09/14 10/10/19 [Citalopram HBr] Digoxin [Lanoxin] 125 mcg PO DAILY 02/09/14 10/10/19 Nitroglycerin [Nitrostat] 0.4 mg SL Q5MIN PRN MDD up to 3 02/09/14 10/10/19 doses Pravastatin Sodium 20 mg PO QPM 02/09/14 10/10/19 Aspirin [Adult Aspirin Regimen] 81 mg PO DAILY 06/19/19 10/10/19 Insulin Aspart [NovoLOG] 0 - 10 unit SUBQ TIDWM 06/19/19 10/10/19 Insulin Glargine [Lantus Solostar] 39 unit SQ DAILY 06/19/19 10/10/19 Albuterol Sulf [Ventolin Hfa 2 puffs INH Q4HR PRN 10/10/19 10/10/19 Inhaler] Furosemide [Lasix] 40 mg PO DAILY #0 10/11/19 10/10/19 Lisinopril [Zestril] 2.5 mg PO DAILY #30 tablet 10/11/19 Spironolactone [Aldactone] 12.5 mg PO DAILY #30 tablet 10/11/19 hydrOXYzine HCl [Hydroxyzine HCl] 25 mg PO QID PRN 1 Days 10/11/19 10/10/19 - PHYSICAL EXAM AT DISCHARGE General Appearance: positive: No acute distress, Alert, Other (speaks full sentences, walked with myself and RT in halls, Sa02 remained above 90% , Brief lightheadedness midway thru ambulation, Blood pressure adequate on return to room, not orthostatic) Respiratory: positive: No respiratory distress, Breath sounds nml (no wheezing, no crackles (patient dyspneic with ambulation with raspy upper airway sounds on return to bed, but on auscultation, no wheezing). negative: Wheezes, Rales, Rhonchi Cardiovascular: positive: Regular rate & rhythm, No murmur, Other (left chest pacemaker ) Abdomen: positive: Nml bowel sounds, No distention, Other (generous abdomen) Skin: positive: Warm, Dry. negative: Diaphoresis, Pallor Extremities: positive: Other (L ankle slightly larger, but no pretibial or pedal edema appreciable). negative: Pedal edema Neurologic/Psychiatric: positive: Oriented x3, Mood/affect nml - LABS Result Diagrams: 10/11/19 05:15 10/11/19 05:15 - DIAGNOSTIC IMAGING Diagnostic Imaging Results: Final report reviewed Diagnostic Imaging Results Comments: CXR; mild pulmonary vascular congestion - FOLLOW UP Follow Up: Patient has cardiology clinic appt 10/19 2pm Check potassium on ACEI and spironolactone (and on Lasix) 4.3 on discharge - TIME SPENT Time Spent in Discharge (Minutes): 60 (patient evaluated several times, over 60 minutes evaluating patient, arranging follow up, educating patient, son)
[2019-10-11] MEDS ORDERED: FUROSEMIDE 40 MG/4 ML VIAL IVP ONE (15:24)
[2019-10-11 17:34] VITALS: BP 118/96
== END 2019-10-11 17:55 | disposition home or self-care (01) ==
LOC: ED 12:44 → MS2 16:15
PROVIDERS: ADMIT Internal Medicine; ATTEND Nurse Practitioner
DX: I11.0 Hypertensive heart disease with heart failure (principal); I50.23 Acute on chronic systolic (congestive) heart failure; I48.91 Unspecified atrial fibrillation; I27.20 Pulmonary hypertension, unspecified; I42.7 Cardiomyopathy due to drug and external agent; T43.621S Poisoning by amphetamines, accidental (unintentional), sequela; F15.11 Other stimulant abuse, in remission; I08.1 Rheumatic disorders of both mitral and tricuspid valves; I25.10 Atherosclerotic heart disease of native coronary artery without angina pectoris; E11.65 Type 2 diabetes mellitus with hyperglycemia; E78.5 Hyperlipidemia, unspecified; J44.9 Chronic obstructive pulmonary disease, unspecified; G47.30 Sleep apnea, unspecified; D72.829 Elevated white blood cell count, unspecified; K21.9 Gastro-esophageal reflux disease without esophagitis; F32.9 Major depressive disorder, single episode, unspecified; F41.0 Panic disorder [episodic paroxysmal anxiety]; F41.9 Anxiety disorder, unspecified; M06.9 Rheumatoid arthritis, unspecified; M10.9 Gout, unspecified; G89.29 Other chronic pain; M54.9 Dorsalgia, unspecified; Z72.89 Other problems related to lifestyle; R79.89 Other specified abnormal findings of blood chemistry; Z79.4 Long term (current) use of insulin; Z95.810 Presence of automatic (implantable) cardiac defibrillator; Z79.82 Long term (current) use of aspirin; Z79.51 Long term (current) use of inhaled steroids; Z79.52 Long term (current) use of systemic steroids; Z79.899 Other long term (current) drug therapy
CPT/HCPCS: 36415; 71045; 80048; 80053; 80162; 83690; 83735; 83880; 84484; 85025; 93005; 93306; 94640; 96365; 96366; 96372; 96375; 96376; 99284; 99285; A9270; G0378; J1170; J1650; J1815; J8499

== ENCOUNTER 2019-10-27 09:41 | Outpatient (CLI) | payer MEDICAID ==
[2019-10-27 12:05] LABS: HGB - HEMOGLOBIN 16.7 g/dL (14.0-18.0); MEAN CORPUSCULAR HEMOGLOBIN 28.6 pg (27.0-31.0); MEAN CORPUSCULAR HGB CONC 32.3 g/dL (32.0-36.0); MEAN CORPUSCULAR VOLUME 88.7 fL (80.0-94.0); MEAN PLATELET VOLUME 10.9 fL (7.4-11.4); RED BLOOD COUNT 5.83 10^6/uL (4.70-6.10); RED CELL DISTRIBUTION WIDTH 13.2 % (12.0-15.0); WHITE BLOOD COUNT 9.3 x10^3/uL (4.8-10.8)
[2019-10-27 12:28] LABS: CALCIUM 9.1 mg/dL (8.5-10.3); CREATININE 1.3 mg/dL (0.6-1.2)
== END 2019-10-27 23:59 | disposition home or self-care (01) ==
LOC: LAB.N 09:41
PROVIDERS: ATTEND Physician Assistant Medical
DX: I42.0 Dilated cardiomyopathy (principal); I50.9 Heart failure, unspecified
CPT/HCPCS: 36415; 80048; 83880; 85027

== ENCOUNTER 2020-02-27 07:46 | Outpatient (CLI) | payer MEDICAID ==
[2020-02-27 12:33] LABS: HB2 TOTAL 15.4 g/dL; HEMOGLOBIN A1C 0.99 g/dL
== END 2020-02-27 23:59 | disposition home or self-care (01) ==
LOC: LAB.N 07:46
PROVIDERS: ATTEND Physician Assistant Medical
DX: E11.65 Type 2 diabetes mellitus with hyperglycemia (principal)
CPT/HCPCS: 36415; 83036

== ENCOUNTER 2020-05-06 18:13 | Emergency (ER) | payer MEDICAID ==
[2020-05-06] MEDS ORDERED: IPRATROPIUM/ALBUTEROL 3 ML NEB INH STA (18:19)
[2020-05-06] MEDS ORDERED: methylPREDNISolone SUCCINATE 125 MG/2 ML VIAL IVP STA (18:30)
[2020-05-06] MEDS ORDERED: FUROSEMIDE 40 MG/4 ML VIAL IVP STA (18:30)
--- NOTE | 2020-05-06 18:37 | ED Physician Documentation ---
History of Present Illness - Stated complaint Stated Complaint: SOA, CP, ABD PX, BILAT FEET SWELLING - Chief complaint Chief Complaint: Resp - History obtained from History obtained from: Patient, Family - History of Present Illness Timing: How many weeks ago (1.5) Pain level max: 3 Pain level now: 3 - Additonal information Additional information: 59-year-old male presents to the emergency department stating he has had difficulty breathing for the past several days. He has a history of COPD, CHF and diabetes. His chest does feel tight. No fevers. Mild dry cough. No vomiting. No diarrhea. No constipation. Feels similar to prior COPD flares. Review of Systems Ten Systems: 10 systems reviewed and negative Constitutional: denies: Fever, Chills Ears: denies: Ear pain Nose: denies: Rhinorrhea / runny nose, Congestion Throat: denies: Sore throat Respiratory: reports: Dyspnea, Cough, Wheezing GI: denies: Abdominal Pain, Nausea, Vomiting, Diarrhea : denies: Dysuria Skin: denies: Rash Musculoskeletal: reports: Extremity swelling (Complains of occasional swelling to the bilateral feet as well as occasional pain). denies: Neck pain PD PAST MEDICAL HISTORY - Past Medical History Cardiovascular: Congestive heart failure, Hypertension, High cholesterol, Atrial fibrillation, Arrhythmia Respiratory: Asthma, COPD, Sleep apnea Endocrine/Autoimmune: Type 2 diabetes GI: GERD : None Psych: Anxiety, Panic attacks Musculoskeletal: Rheumatoid arthritis, Gout, Chronic back pain Derm: None - Past Surgical History Past Surgical History: Yes General: Cholecystectomy Cardiovascular: Pacemaker, AICD - Present Medications Home Medications: Ambulatory Orders Medication Instructions Recorded Confirmed Carvedilol 25 mg PO BID 02/09/14 10/10/19 Citalopram Hydrobromide 10 mg PO BID 02/09/14 10/10/19 [Citalopram HBr] Digoxin [Lanoxin] 125 mcg PO DAILY 02/09/14 10/10/19 Nitroglycerin [Nitrostat] 0.4 mg SL Q5MIN PRN MDD up to 3 02/09/14 10/10/19 doses Pravastatin Sodium 20 mg PO QPM 02/09/14 10/10/19 Aspirin [Adult Aspirin Regimen] 81 mg PO DAILY 06/19/19 10/10/19 Insulin Aspart [NovoLOG] 0 - 10 unit SUBQ TIDWM 06/19/19 10/10/19 Insulin Glargine [Lantus Solostar] 39 unit SQ DAILY 06/19/19 10/10/19 Albuterol Sulf [Ventolin Hfa 2 puffs INH Q4HR PRN 10/10/19 10/10/19 Inhaler] Furosemide [Lasix] 40 mg PO DAILY #0 10/11/19 10/10/19 Spironolactone [Aldactone] 12.5 mg PO DAILY #30 tablet 10/11/19 hydrOXYzine HCL [Hydroxyzine HCl] 25 mg PO QID PRN 1 Days 10/11/19 10/10/19 lisinopriL [Zestril] 2.5 mg PO DAILY #30 tablet 10/11/19 Albuterol Sulf [Ventolin Hfa 1 - 2 puffs INH Q4HR PRN #1 inhaler 05/06/20 Inhaler] predniSONE [Deltasone] 10 mg PO [id number] #42 tab 05/06/20 - Allergies Allergies/Adverse Reactions: Allergies Allergy/AdvReac Type Severity Reaction Status Date / Time metformin AdvReac Nausea Verified 05/06/20 18:26 - Social History Does the pt smoke?: No Smoking Status: Never smoker Does the pt drink ETOH?: No Does the pt have substance abuse?: Yes - Immunizations Immunizations are current?: Yes - POLST Patient has POLST: No POLST Status: Full Code PD ED PE NORMAL - Vitals Vital signs reviewed: Yes - General General: Alert and oriented X 3, Other (Patient is speaking in 1-2 word sentences. Appears dyspneic) - HEENT HEENT: PERRL, Ears normal, Moist mucous membranes, Pharynx benign - Neck Neck: Supple, no meningeal sign - Cardiac Cardiac: RRR - Respiratory Respiratory: Other (Diffuse wheezing bilaterally. Moderate respiratory distress) - Abdomen Abdomen: Soft, Non tender, Other (Mild distention.) - Derm Derm: Warm and dry, No rash - Extremities Extremities: No calf tenderness / cord, Other (1+ bilateral pitting edema) - Neuro Neuro: Alert and oriented X 3 Results - Vitals Vitals: Vital Signs - 24 hr 05/06/20 05/06/20 05/06/20 18:26 18:42 19:00 Temperature 36.7 C Heart Rate 96 87 77 Respiratory 26 H 18 Rate Blood Pressure 131/105 H 133/105 H O2 Saturation 98 94 05/06/20 05/06/20 05/06/20 20:00 20:14 21:07 Temperature Heart Rate 80 88 104 H Respiratory 15 20 22 Rate Blood Pressure 110/75 126/83 H O2 Saturation 95 98 05/06/20 21:21 Temperature 36.8 C Heart Rate 60 Respiratory 20 Rate Blood Pressure 126/63 O2 Saturation 92 Oxygen O2 Source Room air - EKG (time done) 1820 Rate: Rate (enter#) (97) Rhythm: Paced - Labs Labs: Laboratory Tests 05/06/20 05/06/20 05/06/20 18:32 18:32 18:32 WBC 11.6 H RBC 5.24 Hgb 15.5 Hct 49.2 MCV 93.9 MCH 29.6 MCHC 31.5 L RDW 13.9 Plt Count 221 MPV 10.6 Neut # (Auto) 6.6 Lymph # (Auto) 3.3 [place] # (Auto) 1.3 H Eos # (Auto) 0.3 Baso # (Auto) 0.1 Absolute Nucleated RBC 0.00 Nucleated RBC % 0.0 Sodium 139 Potassium 4.9 Chloride 97 L Carbon Dioxide 31 Anion Gap 11.0 BUN 30 H Creatinine 1.5 H Estimated GFR (MDRD) 48 L Glucose 158 H Calcium 8.9 Total Bilirubin 1.2 H AST 22 ALT 30 Alkaline Phosphatase 47 Troponin I High Sens 61.4 H* B-Natriuretic Peptide Total Protein 7.4 Albumin 4.3 Globulin 3.1 Albumin/Globulin Ratio 1.4 Lipase 39 Last Dose Date Last Dose Time Digoxin 05/06/20 05/06/20 05/06/20 18:32 18:32 20:22 WBC RBC Hgb Hct MCV MCH MCHC RDW Plt Count MPV Neut # (Auto) Lymph # (Auto) [place] # (Auto) Eos # (Auto) Baso # (Auto) Absolute Nucleated RBC Nucleated RBC % Sodium Potassium Chloride Carbon Dioxide Anion Gap BUN Creatinine Estimated GFR (MDRD) Glucose Calcium Total Bilirubin AST ALT Alkaline Phosphatase Troponin I High Sens 60.5 H* B-Natriuretic Peptide 783 H Total Protein Albumin Globulin Albumin/Globulin Ratio Lipase Last Dose Date UNKNOWN Last Dose Time UNKNOWN Digoxin < 0.2 - Rads (name of study) Chest x-ray Radiology: Prelim report reviewed, EMP read contemporaneously, See rad report (No acute disease) PD MEDICAL DECISION MAKING - ED course Complexity details: reviewed old records, reviewed results, re-evaluated patient, considered differential, d/w patient, d/w family ED course: Patient feels much better after nebulizer treatment and steroids. No change in his high-sensitivity troponin. BNP is close to baseline. Given extra dose of Lasix. He is able to ambulate around the emergency department without hypoxia or respiratory distress. We will place him on steroids for home and prescribe a new albuterol inhaler. No indication for antibiotics. Patient counseled reg gavin signs and symptoms for which I believe and urgent re-evaluation would be necessary. Patient with good understanding of and agreement to plan and is comfortable going home at this time This document was made in part using voice recognition software. While efforts are made to proofread this document, sound alike and grammatical errors may occur. Departure - Departure Disposition: Home, Self Care Clinical Impression: COPD with exacerbation Congestive heart failure Qualifiers: Heart failure type: unspecified Heart failure chronicity: chronic Qualified Code(s): I50.9 - Heart failure, unspecified Condition: Good Instructions: ED COPD Flare Follow-Up: your,doctor in 1 week [Other] Prescriptions: Albuterol Sulf [Ventolin Hfa Inhaler] 1 - 2 puffs INH Q4HR PRN #1 inhaler PRN Reason: Shortness Of Air/Wheezing predniSONE [Deltasone] 10 mg PO [id number] #42 tab Comments: Follow-up with your doctor near the end of the week. Return if you worsen. You should continue to improve at home. Continue the steroids. This will increase your glucose at home. Discharge Date/Time: 05/06/20 21:21
[2020-05-06 18:40] LABS: BASOPHILS # (AUTO) 0.1 10^3/uL (0.0-0.1); BASOPHILS % (AUTO) 0.6 %; EOSINOPHILS # (AUTO) 0.3 10^3/uL (0.0-0.7); EOSINOPHILS % (AUTO) 2.6 %; HGB - HEMOGLOBIN 15.5 g/dL (14.0-18.0); LYMPHOCYTES # (AUTO) 3.3 10^3/uL (1.5-3.5); LYMPHOCYTES % (AUTO) 28.7 %; MEAN CORPUSCULAR HEMOGLOBIN 29.6 pg (27.0-31.0); MEAN CORPUSCULAR HGB CONC 31.5 g/dL (32.0-36.0); MEAN CORPUSCULAR VOLUME 93.9 fL (80.0-94.0); MEAN PLATELET VOLUME 10.6 fL (7.4-11.4); MONOCYTES # (AUTO) 1.3 10^3/uL (0.0-1.0); MONOCYTES % (AUTO) 11.3 %; NEUTROPHILS # (AUTO) 6.6 10^3/uL (1.5-6.6); NEUTROPHILS % (AUTO) 56.5 %; PLT - PLATELET COUNT 221 10^3/uL (130-450); RED BLOOD COUNT 5.24 10^6/uL (4.70-6.10); RED CELL DISTRIBUTION WIDTH 13.9 % (12.0-15.0); WHITE BLOOD COUNT 11.6 x10^3/uL (4.8-10.8)
[2020-05-06 18:56] LABS: ALBUMIN 4.3 g/dL (3.2-5.5); ALBUMIN/GLOBULIN RATIO 1.4 (1.0-2.2); BILIRUBIN,TOTAL 1.2 mg/dL (0.2-1.0); CALCIUM 8.9 mg/dL (8.5-10.3); CREATININE 1.5 mg/dL (0.6-1.2); TOTAL PROTEIN 7.4 g/dL (6.7-8.2)
[2020-05-06 19:09] LABS: DIGOXIN < 0.2 ng/mL
--- NOTE | 2020-05-06 19:12 | XRAY Report ---
Reason: Chest Pain Procedure Date: 05/06/2020 Accession Number: [id number] / [id number] Procedure: XR - Chest 1 View X-Ray CPT Code: 93255 Final Report FULL RESULT: PROCEDURE: Chest 1 View X-Ray INDICATIONS: Chest Pain TECHNIQUE: One view of the chest was acquired. COMPARISON: None FINDINGS: Surgical changes and devices: Cardiac pacer. Lungs and pleura: No pleural effusions or pneumothorax. Lungs are clear. Mediastinum: Mediastinal contours appear normal. Heart size is normal. Bones and chest wall: No suspicious bony lesions. Overlying soft tissues appear unremarkable. IMPRESSION: No acute disease Reviewed by: Janes Wilkerson MD on 05/06/2020 7:11 PM PDT Approved by: Janes Wilkerson MD on 05/06/2020 7:11 PM PDT Station ID: [id number]
[2020-05-06] MEDS ORDERED: ALBUTEROL NEB 2.5 MG/3 ML INH STA (19:49)
[2020-05-06 21:23] VITALS: BP 126/63
== END 2020-05-06 21:21 | disposition home or self-care (01) ==
LOC: ED 18:13
DX: J44.1 Chronic obstructive pulmonary disease with (acute) exacerbation (principal); I11.0 Hypertensive heart disease with heart failure; I50.9 Heart failure, unspecified; E11.9 Type 2 diabetes mellitus without complications; Z79.4 Long term (current) use of insulin; Z95.0 Presence of cardiac pacemaker; Z79.82 Long term (current) use of aspirin
CPT/HCPCS: 36415; 71045; 80053; 80162; 83690; 83880; 84484; 85025; 93005; 94640; 96374; 99284

== ENCOUNTER 2020-08-13 17:23 | Outpatient (CLI) | payer MEDICAID | END 2020-08-13 17:24 | disposition EMS.NT | LOC: EMS 17:23 | PROVIDERS: ATTEND Surgery | DX: R06.2 Wheezing (principal) ==

== ENCOUNTER 2020-08-15 08:00 | Outpatient (CLI) | payer MEDICAID ==
[2020-08-15 11:30] LABS: BASOPHILS % (AUTO) 0.5 %; EOSINOPHILS # (AUTO) 0.2 10^3/uL (0.0-0.7); EOSINOPHILS % (AUTO) 2.3 %; HGB - HEMOGLOBIN 14.9 g/dL (14.0-18.0); LYMPHOCYTES # (AUTO) 2.1 10^3/uL (1.5-3.5); LYMPHOCYTES % (AUTO) 25.2 %; MEAN CORPUSCULAR HEMOGLOBIN 29.3 pg (27.0-31.0); MEAN CORPUSCULAR HGB CONC 31.1 g/dL (32.0-36.0); MEAN CORPUSCULAR VOLUME 94.3 fL (80.0-94.0); MEAN PLATELET VOLUME 11.4 fL (7.4-11.4); MONOCYTES # (AUTO) 0.9 10^3/uL (0.0-1.0); MONOCYTES % (AUTO) 11.2 %; NEUTROPHILS % (AUTO) 60.6 %; PLT - PLATELET COUNT 172 10^3/uL (130-450); RED BLOOD COUNT 5.08 10^6/uL (4.70-6.10); RED CELL DISTRIBUTION WIDTH 15.5 % (12.0-15.0); WHITE BLOOD COUNT 8.3 x10^3/uL (4.8-10.8)
[2020-08-15 11:55] LABS: ALBUMIN 4.3 g/dL (3.2-5.5); ALBUMIN/GLOBULIN RATIO 1.4 (1.0-2.2); ALKALINE PHOSPHATASE 48 IU/L (42-121); ALT ALANINE AMINOTRANSFERASE 21 IU/L (10-60); AST ASPARTATE AMINOTRANSFERASE 21 IU/L (10-42); BILIRUBIN,TOTAL 1.7 mg/dL (0.2-1.0); BUN - BLOOD UREA NITROGEN 38 mg/dL (6-20); CALCIUM 9.2 mg/dL (8.5-10.3); CARBON DIOXIDE - CO2 32 mmol/L (21-32); CHLORIDE 100 mmol/L (101-111); CHOL/HDL RATIO 4.3 (<5.0); CHOLESTEROL 90 mg/dL; CREATININE 1.5 mg/dL (0.6-1.2); GLUCOSE 171 mg/dL (70-100); HDL CHOLESTEROL 21 mg/dL; LDL CHOLESTEROL,CALCULATED 56 mg/dL; LDL/HDL RATIO 2.7 (<3.6); SODIUM 141 mmol/L (135-145); TOTAL PROTEIN 7.3 g/dL (6.7-8.2); VLDL CHOLESTEROL 13 mg/dL
[2020-08-15 12:12] LABS: DIGOXIN < 0.2 ng/mL
[2020-08-15 12:17] LABS: HEMOGLOBIN A1c% 7.8 % (4.27-6.07)
[2020-08-15 12:27] LABS: CREATININE,URINE 36.4 mg/dL; MICROALBUM/CREATININE RATIO,UR 71.4 ug/mg (<30.0); MICROALBUMIN,URINE 2.6 mg/dL (0-300.0)
== END 2020-08-15 08:01 | disposition home or self-care (01) ==
LOC: LAB.WCP 08:00
PROVIDERS: ATTEND Family Medicine
DX: E11.9 Type 2 diabetes mellitus without complications (principal); I42.0 Dilated cardiomyopathy
CPT/HCPCS: 36415; 80053; 80061; 80162; 82043; 82570; 83036; 83721; 83880; 85025

== ENCOUNTER 2020-08-17 10:46 | Inpatient (IN) | payer MEDICAID ==
--- NOTE | 2020-08-17 11:35 | ED Physician Documentation ---
PD HPI DYSPNEA - Stated complaint Stated Complaint: SOA - Chief complaint Chief Complaint: Cardiac - History obtained from History obtained from: Patient - History of Present Illness Timing - onset: How many weeks ago (1) Timing - duration: Weeks (1 week of worsening dyspnea associated with congested cough but no fevers. He does have history of COPD and his inhaler had been out recently. He does have CHF as well and had leg swelling and orthopnea. Saw PCP and had Lasix dose increased 2 days ago but worse dyspnea since. Increased cough.) Timing - details: Gradual onset Inciting event(s): Out of meds (Had run out of his inhaler recently. Rx for one couple days ago.), Exposure (ie smoke) (air quality issues with smoke recently) Improved by: Rest, Sitting up Worsened by: Exertion, Laying flat, Coughing Associated symptoms: Cough, Wheezing, Bilateral edema, Anxiety (was up all night last night with dyspnea and "gasping for breath".). No: Fever, Chest pain / discomfort, Palpitations Similar symptoms before: Diagnosis (History of CHF as well as COPD and has had exacerbations of both in the past. He and his son rate this is a little worse than usual flareups) Recently seen: Clinic (2 days ago with instructions to increase oral Lasix.) Review of Systems Constitutional: denies: Fever Nose: reports: Congestion. denies: Rhinorrhea / runny nose Throat: denies: Sore throat Cardiac: reports: Pedal edema. denies: Chest pain / pressure, Palpitations, Calf pain Respiratory: reports: Dyspnea, Cough, Wheezing. denies: Hemoptysis GI: denies: Abdominal Pain, Nausea, Vomiting, Diarrhea Skin: denies: Rash, Lesions Musculoskeletal: reports: Extremity swelling Neurologic: reports: Generalized weakness, Altered mental status (son says the patient was some confused yesterday and last night as he was having trouble breathing.). denies: Focal weakness, Numbness, Near syncope, Headache Endocrine: denies: Weight loss Immunocompromised: denies: Immunocompromised PD PAST MEDICAL HISTORY - Past Medical History Cardiovascular: Congestive heart failure, Hypertension, High cholesterol, Atrial fibrillation, Arrhythmia Respiratory: Asthma, COPD, Sleep apnea Endocrine/Autoimmune: Type 2 diabetes GI: GERD : None Psych: Anxiety, Panic attacks Musculoskeletal: Rheumatoid arthritis, Gout, Chronic back pain Derm: None - Past Surgical History Past Surgical History: Yes General: Cholecystectomy Cardiovascular: Pacemaker, AICD - Present Medications Home Medications: Ambulatory Orders Medication Instructions Recorded Confirmed Carvedilol 25 mg PO BID 02/09/14 10/10/19 Citalopram Hydrobromide 10 mg PO BID 02/09/14 10/10/19 [Citalopram HBr] Digoxin [Lanoxin] 125 mcg PO DAILY 02/09/14 10/10/19 Pravastatin Sodium 20 mg PO QPM 02/09/14 10/10/19 Aspirin [Adult Aspirin Regimen] 81 mg PO DAILY 06/19/19 10/10/19 Furosemide [Lasix] 40 mg PO DAILY #0 10/11/19 10/10/19 hydrOXYzine HCL [Hydroxyzine HCl] 25 mg PO QID PRN 1 Days 10/11/19 10/10/19 lisinopriL [Zestril] 2.5 mg PO DAILY #30 tablet 10/11/19 - Allergies Allergies/Adverse Reactions: Allergies Allergy/AdvReac Type Severity Reaction Status Date / Time metformin AdvReac Nausea Verified 08/17/20 10:57 - Social History Does the pt smoke?: No Smoking Status: Never smoker Does the pt drink ETOH?: No Does the pt have substance abuse?: Yes - Immunizations Immunizations are current?: Yes - POLST Patient has POLST: No POLST Status: Full Code PD ED PE NORMAL - Vitals Vital signs reviewed: Yes (Oximetry was 94% though he was tachypneic at 28 with accessory muscle use a) - General General: Alert and oriented X 3, Well developed/nourished - HEENT HEENT: Moist mucous membranes, Pharynx benign - Neck Neck: Supple, no meningeal sign, No adenopathy, No JVD (mild at 45 degrees) - Cardiac Cardiac: RRR, No rub - Respiratory Respiratory: No: Clear bilaterally (Tight breath sounds with prolonged expiratory phase and diffuse wheezing. There is also fine crackles noted intermediate up on both sides. No coarse sounds per se.) - Abdomen Abdomen: Normal bowel sounds, Soft, Non distended, No organomegaly - Back Back: No CVA TTP - Derm Derm: Warm and dry. No: Normal color (What dusky color peripherally. Oxygenation was 94% on room air but had work of breathing so placed on nasal cannula) - Extremities Extremities: Normal ROM s pain, No calf tenderness / cord, Other (1-2+ edema in both legs and ankles) - Neuro Neuro: Alert and oriented X 3, No motor deficit, Normal speech Eye Opening: Spontaneous Motor: Obeys Commands Verbal: Oriented GCS Score: 15 Results - Vitals Vitals: Vital Signs - 24 hr 08/17/20 08/17/20 08/17/20 10:53 12:17 12:30 Temperature 36.5 C Heart Rate 58 L 60 65 Respiratory 16 28 H 28 H Rate Blood Pressure 126/80 110/86 H 119/94 H O2 Saturation 94 98 97 08/17/20 08/17/20 08/17/20 13:00 13:17 13:28 Temperature Heart Rate 75 76 57 L Respiratory 26 H 16 14 Rate Blood Pressure 111/81 H O2 Saturation 98 08/17/20 13:30 Temperature Heart Rate 60 Respiratory 28 H Rate Blood Pressure 120/109 H O2 Saturation 92 Oxygen O2 Source Nasal cannula - EKG (time done) 11:00 Rate: Rate (enter#) (60) Rhythm: Paced Intervals: Wide QRS Ischemia: Non specific changes Computer interpretation: Agree with computer - Labs Labs: Laboratory Tests 08/17/20 08/17/20 08/17/20 11:12 11:58 11:58 WBC 8.7 RBC 5.12 Hgb 14.4 Hct 47.8 MCV 93.4 MCH 28.1 MCHC 30.1 L RDW 15.4 H Plt Count 164 MPV 10.8 Neut # (Auto) 5.5 Lymph # (Auto) 2.0 [place] # (Auto) 0.9 Eos # (Auto) 0.2 Baso # (Auto) 0.1 Absolute Nucleated RBC 0.00 Nucleated RBC % 0.0 PT 14.8 H INR 1.3 H Sodium Potassium Chloride Carbon Dioxide Anion Gap BUN Creatinine Estimated GFR (MDRD) Glucose Calcium Magnesium 2.3 Total Bilirubin AST ALT Alkaline Phosphatase Troponin I High Sens B-Natriuretic Peptide Total Protein Albumin Globulin Albumin/Globulin Ratio Lipase Last Dose Date Last Dose Time Digoxin 08/17/20 08/17/20 08/17/20 11:58 11:58 11:58 WBC RBC Hgb Hct MCV MCH MCHC RDW Plt Count MPV Neut # (Auto) Lymph # (Auto) [place] # (Auto) Eos # (Auto) Baso # (Auto) Absolute Nucleated RBC Nucleated RBC % PT INR Sodium 139 Potassium 4.3 Chloride 101 Carbon Dioxide 26 Anion Gap 12.0 BUN 39 H Creatinine 1.2 Estimated GFR (MDRD) 62 L Glucose 153 H Calcium 9.0 Magnesium Total Bilirubin 1.7 H AST 19 ALT 21 Alkaline Phosphatase 46 Troponin I High Sens 39.3 H* B-Natriuretic Peptide 675 H Total Protein 6.9 Albumin 4.2 Globulin 2.7 Albumin/Globulin Ratio 1.6 Lipase 25 Last Dose Date Last Dose Time Digoxin 08/17/20 11:58 WBC RBC Hgb Hct MCV MCH MCHC RDW Plt Count MPV Neut # (Auto) Lymph # (Auto) [place] # (Auto) Eos # (Auto) Baso # (Auto) Absolute Nucleated RBC Nucleated RBC % PT INR Sodium Potassium Chloride Carbon Dioxide Anion Gap BUN Creatinine Estimated GFR (MDRD) Glucose Calcium Magnesium Total Bilirubin AST ALT Alkaline Phosphatase Troponin I High Sens B-Natriuretic Peptide Total Protein Albumin Globulin Albumin/Globulin Ratio Lipase Last Dose Date UNKNOWN Last Dose Time UNKNOWN Digoxin < 0.2 - Rads (name of study) chest xray Radiology: Prelim report reviewed, See rad report (enlarged heart. Mild to moderate CHF. No focal infiltrates. ) PD MEDICAL DECISION MAKING - ED course Complexity details: re-evaluated patient (Over 600 cc. He had received a DuoNeb which seemed to help his breathing. He is actually having more audible/auscultatory wheezing now. He is able to talk in sentences better and is looking more relaxed.), considered differential (As tight respiratory lungs sounds with congestion in the lower half and diffuse expiratory wheezing. No coarse sounds per se.), d/w patient ED course: He has a combination of COPD flareup as well as some acute on chronic congestive failure. Clinically the impression seems to be more COPD though it is a combination of both with the pedal edema orthopnea and some CHF on x-ray. However he does have the wheezing and COPD history and had been without his inhaler recently. His flareup does seem to coincide with the recent [facility] air quality issues. Nebulizer treatments which seemed to help his breathing. He is more relaxed and able to breathe at a more normal rate. Able to talk. He does have increased wheezing actually which seems like he is opening up. He still feels fairly short of breath. I feel he will need continued treatment with both some diuresing as well as treatment of COPD exacerbation and does not quite improved enough to be able to do home treatment at this point. Departure - Departure Disposition: ED Place in Observation Clinical Impression: Acute dyspnea, COPD with acute exacerbation Acute exacerbation of congestive heart failure Qualifiers: Heart failure type: unspecified Qualified Code(s): I50.9 - Heart failure, unspecified Condition: Stable Record reviewed to determine appropriate education?: Yes Discharge Date/Time: 08/17/20 15:18
--- NOTE | 2020-08-17 11:48 | XRAY Report ---
PROCEDURE: Chest 1 View X-Ray INDICATIONS: Chest Pain TECHNIQUE: One view of the chest was acquired. COMPARISON: Correlation is made with prior chest radiograph 05/06/2020, 10/09/2019, 01/08/2018 FINDINGS: Surgical changes and devices: A pacer device can be seen. The leads are seen in the expected posit ions. Lungs and pleura: No pleural effusions or pneumothorax. No focal infiltrates are seen. Mild inters titial prominence is seen. Mediastinum: Mediastinal contours appear normal. Heart size is moderately enlarged. Bones and chest wall: No suspicious bony lesions. Overlying soft tissues appear unremarkable. IMPRESSION: Cardiomegaly and mild interstitial prominence. Please correlate with mild/early congestive heart fail ure. Stable pacer device. Reviewed by: Craig Miller MD on 08/17/2020 10:47 AM [facility] Approved by: Craig Miller MD on 08/17/2020 10:47 AM [facility] Station ID: [id number]
[2020-08-17 12:06] LABS: BASOPHILS # (AUTO) 0.1 10^3/uL (0.0-0.1); BASOPHILS % (AUTO) 0.6 %; EOSINOPHILS # (AUTO) 0.2 10^3/uL (0.0-0.7); EOSINOPHILS % (AUTO) 2.2 %; HGB - HEMOGLOBIN 14.4 g/dL (14.0-18.0); MEAN CORPUSCULAR HEMOGLOBIN 28.1 pg (27.0-31.0); MEAN CORPUSCULAR HGB CONC 30.1 g/dL (32.0-36.0); MEAN CORPUSCULAR VOLUME 93.4 fL (80.0-94.0); MEAN PLATELET VOLUME 10.8 fL (7.4-11.4); MONOCYTES # (AUTO) 0.9 10^3/uL (0.0-1.0); MONOCYTES % (AUTO) 10.8 %; NEUTROPHILS # (AUTO) 5.5 10^3/uL (1.5-6.6); NEUTROPHILS % (AUTO) 63.1 %; PLT - PLATELET COUNT 164 10^3/uL (130-450); RED BLOOD COUNT 5.12 10^6/uL (4.70-6.10); RED CELL DISTRIBUTION WIDTH 15.4 % (12.0-15.0); WHITE BLOOD COUNT 8.7 x10^3/uL (4.8-10.8)
[2020-08-17 12:10] LABS: INR 1.3 (0.8-1.2); PT - PROTHROMBIN TIME 14.8 secs (9.9-12.6)
[2020-08-17] MEDS ORDERED: FUROSEMIDE 40 MG/4 ML VIAL IVP STA (12:18)
[2020-08-17] MEDS ORDERED: IPRATROPIUM/ALBUTEROL 3 ML NEB INH STA (12:18)
[2020-08-17 12:28] LABS: ALBUMIN 4.2 g/dL (3.2-5.5); ALBUMIN/GLOBULIN RATIO 1.6 (1.0-2.2); BILIRUBIN,TOTAL 1.7 mg/dL (0.2-1.0); CREATININE 1.2 mg/dL (0.6-1.2); TOTAL PROTEIN 6.9 g/dL (6.7-8.2)
[2020-08-17 12:31] LABS: DIGOXIN < 0.2 ng/mL
[2020-08-17] MEDS ORDERED: DEXAMETHASONE 10 MG/ML VIAL IVP STA (13:17)
[2020-08-17] MEDS ORDERED: ALBUTEROL NEB 2.5 MG/3 ML INH STA ×2 (13:25→13:30)
[2020-08-17] MEDS ORDERED: DOXYCYCLINE 100 MG TABLET PO STA (13:26)
[2020-08-17] MEDS ORDERED: cefTRIAXone 1 GM VIAL IVP STA (13:26)
[2020-08-17] MEDS ORDERED: ALBUTEROL NEB 2.5 MG/3 ML INH ONE (13:32)
[2020-08-17] MEDS ORDERED: ACETAMINOPHEN 325 MG TABLET PO PRN (14:00)
[2020-08-17] MEDS ORDERED: ONDANSETRON ODT 4 MG TABLET TL PRN (14:00)
[2020-08-17] MEDS ORDERED: MORPHINE 2 MG/ML CARPUJECT IVP STA (14:27)
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
[2020-08-17] MEDS ORDERED: MORPHINE 2 MG/ML CARPUJECT IVP PRN (17:50)
[2020-08-17] MEDS: SODIUM CHLORIDE FLUSH 0.9% 10 ML SYRINGE IVP SCH ×2 (18:25→23:52)
[2020-08-17] MEDS: methylPREDNISolone SUCCINATE 40 MG/ML VIAL IVP SCH ×2 (18:25→21:23)
[2020-08-17] MEDS: MORPHINE 2 MG/ML CARPUJECT IVP PRN ×3 (18:25→23:52)
[2020-08-17] MEDS: IPRATROPIUM/ALBUTEROL 3 ML NEB INH SCH (19:57)
[2020-08-17] MEDS: carvediloL 12.5 MG TABLET PO SCH (20:26)
[2020-08-17] MEDS: CITALOPRAM 10 MG TABLET PO SCH (20:27)
[2020-08-17] MEDS: LORazepam 0.5 MG TABLET PO PRN (20:27)
[2020-08-17] MEDS: INSULIN ASPART 300 UNIT/3 ML PEN SUBQ SCH (20:27)
[2020-08-17] MEDS: SODIUM CHLORIDE FLUSH 0.9% 10 ML SYRINGE IVP PRN (21:23)
[2020-08-17] MEDS: oxyCODONE 5 MG TABLET PO PRN (22:52)
[2020-08-17] MEDS: ALBUTEROL NEB 2.5 MG/3 ML INH PRN (23:56)
[2020-08-18] MEDS: BENZONATATE 100 MG CAPSULE PO PRN ×2 (01:27→16:13)
[2020-08-18] MEDS: LORazepam 0.5 MG TABLET PO PRN ×2 (01:27→03:11)
[2020-08-18] MEDS: MORPHINE 2 MG/ML CARPUJECT IVP PRN ×6 (03:11→21:04)
[2020-08-18] MEDS: ALBUTEROL NEB 2.5 MG/3 ML INH PRN ×2 (04:14→23:46)
[2020-08-18] MEDS: methylPREDNISolone SUCCINATE 40 MG/ML VIAL IVP SCH ×3 (05:27→21:03)
[2020-08-18 05:37] LABS: BASOPHILS % (AUTO) 0.1 %; HGB - HEMOGLOBIN 13.9 g/dL (14.0-18.0); LYMPHOCYTES # (AUTO) 1.2 10^3/uL (1.5-3.5); MEAN CORPUSCULAR HEMOGLOBIN 28.4 pg (27.0-31.0); MEAN CORPUSCULAR HGB CONC 30.7 g/dL (32.0-36.0); MEAN CORPUSCULAR VOLUME 92.6 fL (80.0-94.0); MEAN PLATELET VOLUME 11.2 fL (7.4-11.4); MONOCYTES # (AUTO) 0.2 10^3/uL (0.0-1.0); MONOCYTES % (AUTO) 2.4 %; NEUTROPHILS # (AUTO) 8.4 10^3/uL (1.5-6.6); PLT - PLATELET COUNT 148 10^3/uL (130-450); RED BLOOD COUNT 4.89 10^6/uL (4.70-6.10); RED CELL DISTRIBUTION WIDTH 15.3 % (12.0-15.0); WHITE BLOOD COUNT 9.9 x10^3/uL (4.8-10.8)
[2020-08-18 06:03] LABS: CALCIUM 9.1 mg/dL (8.5-10.3); CREATININE 1.4 mg/dL (0.6-1.2); MAGNESIUM 2.1 mg/dL (1.7-2.8); PHOSPHORUS 5.1 mg/dL (2.5-4.6)
[2020-08-18] MEDS ORDERED: LACTATED RINGERS 500 ML IV ONE (07:48)
[2020-08-18] MEDS: IPRATROPIUM/ALBUTEROL 3 ML NEB INH SCH ×4 (07:50→19:37)
[2020-08-18] MEDS: INSULIN ASPART 300 UNIT/3 ML PEN SUBQ SCH ×4 (08:03→21:30)
[2020-08-18] MEDS: lisinopriL 5 MG TABLET PO SCH (08:06)
[2020-08-18] MEDS: CITALOPRAM 10 MG TABLET PO SCH (08:06)
[2020-08-18] MEDS: carvediloL 12.5 MG TABLET PO SCH ×2 (08:06→21:04)
[2020-08-18 09:17] LABS: HEMOGLOBIN A1c% 7.9 % (4.27-6.07)
[2020-08-18] MEDS: SODIUM CHLORIDE FLUSH 0.9% 10 ML SYRINGE IVP SCH ×2 (10:59→16:20)
--- NOTE | 2020-08-18 13:03 | PHARMACY PROGRESS NOTE ---
- Best Possible Medication History Admit Date and Time: 08/18/20 1112 Processed by: Pharmacy Medication History completed: Yes Patient Interview: Completed Secondary Source(s): Prescription bottles (GIOVANNAETN UNABLE TO BE INTERVIEWED. PATIENT DOES NOT KNOW WHAT HE TAKES AT HOME. MEDICATION RECONCILITAION DONE USING INSURANCE RECORDS AND PATIENT PILL BOX ), Pharmacy records, Insurance records As the person ultimately responsible for medication therapy, providers are able to order a medication from an existing home medication list in [facility] via the "Reconcile Routine" prior to Confirmation of that medication by network support administrator. Such practice is discouraged except when the physician, in their clinical judgment, deems that a medical need exists for a medication without regard to previous use.
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
[2020-08-18] MEDS ORDERED: INSULIN GLARGINE 300 UNIT/3 ML PEN SUBQ SCH (21:00)
[2020-08-18] MEDS: SODIUM CHLORIDE FLUSH 0.9% 10 ML SYRINGE IVP PRN (21:03)
[2020-08-18] MEDS: oxyCODONE 5 MG TABLET PO PRN (21:04)
[2020-08-19] MEDS: SODIUM CHLORIDE FLUSH 0.9% 10 ML SYRINGE IVP SCH ×3 (01:04→15:54)
[2020-08-19] MEDS: MORPHINE 2 MG/ML CARPUJECT IVP PRN ×5 (01:04→21:02)
[2020-08-19] MEDS: BENZONATATE 100 MG CAPSULE PO PRN ×3 (01:05→18:45)
[2020-08-19] MEDS: ALBUTEROL NEB 2.5 MG/3 ML INH PRN (04:17)
[2020-08-19] MEDS: oxyCODONE 5 MG TABLET PO PRN (04:55)
[2020-08-19] MEDS: LORazepam 0.5 MG TABLET PO PRN ×3 (04:56→17:29)
[2020-08-19] MEDS: IPRATROPIUM/ALBUTEROL 3 ML NEB INH SCH ×4 (07:40→20:08)
[2020-08-19] MEDS: INSULIN ASPART 300 UNIT/3 ML PEN SUBQ SCH ×4 (08:13→21:28)
[2020-08-19] MEDS: CITALOPRAM 10 MG TABLET PO SCH (08:14)
[2020-08-19] MEDS: methylPREDNISolone SUCCINATE 40 MG/ML VIAL IVP SCH ×2 (08:15→21:29)
[2020-08-19] MEDS: carvediloL 12.5 MG TABLET PO SCH ×2 (08:15→21:00)
[2020-08-19] MEDS: lisinopriL 5 MG TABLET PO SCH (08:22)
[2020-08-19] MEDS: guaiFENesin/CODEINE 5 ML UDC PO PRN ×2 (10:45→16:04)
--- NOTE | 2020-08-19 11:19 | PROVIDER PROGRESS NOTE ---
Subjective - Prog Note Date Prog Note Date: 08/19/20 Prog Note Time: 11:17 - Subjective Pt reports feeling: No change Subjective: he is still very shay with walking but able to walk a very slow 80 feet before he has to stop. He is use to bicycling and couldn't do it now. Wheezing is intermittently severe and worsens w exertion or laying down. If he is sitting up, he's ok. Respiratory feels the wheezing is more upper airway, even throat. Edema ok. Current Medications - Current Medications Current Medications: Active Medications Acetaminophen (Tylenol) 650 mg PO Q4HR PRN PRN Reason: Pain 1 to 4 Last Admin: 08/17/20 22:35 Dose: 650 mg Documented by: Albuterol () 2.5 mg INH RTQ4H PRN PRN Reason: Wheezing Last Admin: 08/19/20 04:17 Dose: 2.5 mg Documented by: Albuterol/Ipratropium (Duoneb) 3 ml INH RTQID [facility] Last Admin: 08/19/20 07:40 Dose: 3 ml Documented by: Benzonatate (Tessalon) 100 mg PO TID PRN PRN Reason: Cough Last Admin: 08/19/20 08:15 Dose: 100 mg Documented by: Carvedilol (Coreg) 25 mg PO BID [facility] Last Admin: 08/19/20 08:15 Dose: 25 mg Documented by: Citalopram Hydrobromide (Celexa) 10 mg PO DAILY [facility] Last Admin: 08/19/20 08:14 Dose: 10 mg Documented by: Guaifenesin/Codeine Phosphate (Robitussin Ac) 5 ml PO Q6HR PRN PRN Reason: Cough Last Admin: 08/19/20 10:45 Dose: 5 ml Documented by: Insulin Aspart (Novolog) 2 - 10 unit SUBQ 0800,1200,1700,2100 [facility]; Protocol Last Admin: 08/19/20 08:13 Dose: 2 unit Documented by: Insulin Glargine (Lantus Solostar) 15 unit SUBQ QPM [facility] Last Admin: 08/18/20 21:02 Dose: 15 unit Documented by: Lisinopril (Zestril) 2.5 mg PO DAILY [facility] Last Admin: 08/19/20 08:22 Dose: 2.5 mg Documented by: Lorazepam (Ativan) 0.5 mg PO Q6H PRN PRN Reason: Anxiety Last Admin: 08/19/20 10:45 Dose: 0.5 mg Documented by: Methylprednisolone (Solu-Medrol (40mg Vial)) 40 mg IVP BID [facility] Last Admin: 08/19/20 08:15 Dose: 40 mg Documented by: Morphine Sulfate (Morphine (Carpuject)) 2 mg IVP Q2HR PRN PRN Reason: PAIN Last Admin: 08/19/20 08:14 Dose: 2 mg Documented by: Ondansetron HCl (Zofran Odt) 4 mg TL Q6HR PRN PRN Reason: Nausea / Vomiting Oxycodone HCl (Roxicodone) 5 mg PO Q4HR PRN PRN Reason: Pain 5 to 7 Last Admin: 08/19/20 04:55 Dose: 5 mg Documented by: Sodium Chloride (Normal Saline Flush 0.9%) 10 ml IVP PRN PRN PRN Reason: NEEDED PER PROVIDER ORDERS Last Admin: 08/18/20 21:03 Dose: 20 ml Documented by: Sodium Chloride (Normal Saline Flush 0.9%) 10 ml IVP 0100,0900,1700 [facility] Last Admin: 08/19/20 08:14 Dose: 10 ml Documented by: Citalopram Hydrobromide [Citalopram HBr] 20 mg PO BID 02/09/14 Digoxin [Lanoxin] 125 mcg PO DAILY 02/09/14 Pravastatin Sodium 20 mg PO QPM 02/09/14 Aspirin [Adult Aspirin Regimen] 81 mg PO DAILY 06/19/19 Carvedilol 12.5 mg PO BID 08/18/20 Insulin Glargine [Lantus Solostar] 35 units SQ DAILY 08/18/20 Objective - Vital Signs/Intake & Output Reviewed Vital Signs: Yes Vital Signs: Vital Signs x48h Temp Pulse Pulse Resp BP Pulse Ox 08/19/20 08:08 95 118/90 H 98 08/19/20 07:40 70 22 08/19/20 05:26 36.3 C L 90 22 122/76 96 08/19/20 04:19 89 18 Intake & Output: Intake & Output 08/16/20 08/17/20 08/18/20 08/19/20 23:59 23:59 23:59 23:59 Intake Total 556 2656 120 Output Total [address] [facility] -8 356 -1115 - Objective General Appearance: positive: Alert, Mild distress Eyes Bilateral: positive: PERRL ENT: positive: Pharynx nml Neck: positive: No JVD Respiratory: positive: Chest non-tender, Wheezes Cardiovascular: positive: Regular rate & rhythm. negative: Gallop/S4, Friction rub Abdomen: positive: Non-tender, No organomegaly, Nml bowel sounds, No distention, Other (obese abd panus) Skin: positive: Warm, Dry Extremities: positive: Non-tender, Pedal edema (minimal) Neurologic/Psychiatric: positive: Oriented x3, CN's nml (2-12), Motor nml - Lab Results Fish Bones: 08/19/20 13:20 08/19/20 13:20 Other Labs: Lab Results x24hrs 08/19/20 08/18/20 08/18/20 Range/Units 07:38 20:35 16:27 POC Whole Bld Glucose 175 H 244 H 238 H (70 - 100) mg/dL Assessment/Plan - Problem List (1) Acute exacerbation of congestive heart failure Impression: 08/19: I spoke to his fibre cement moulder, Kadeem Diez PA-C who works at [facility] [employer]. Patient was due to be seen this last week but did not show. Review of his AICD data shows to his pacer to gone off twice on the same day approximately July 26. We went over symptoms that day where the patient told me about how he was getting a burger for his son and as he entered the entryway he lost consciousness and the AICD went off. We also discussed the new echo result that shows his ejection fraction has deteriorated. It is less than 20% now. Plan: No change in current medication. Stay on the same beta-tamar diuretic, MARIANA inhibitor. Add amiodarone 400 mg p.o. twice daily for a week. Then 200 mg p.o. twice daily for 2 weeks. Then 200 mg p.o. daily thereafter. Patient needs to follow-up with his appointment. 08/18: He now tells me that the AICD has gone off twice in the last couple of weeks. About 4 days ago he had ridden his bicycle to [employer] and get a burger for his son. He felt very weak and wobbly as he was bicycling back. Got off his bike, walk up the stairs to his apartment, as he opened the door to give his son the burger, he lost consciousness. Son says that he fell to the ground and his body jerked with his arms flailed open as the AICD went off. In reviewing his labs this morning, he has acute renal insufficiency. BUN and creatinine have gone up to 45 1.4. He received 80 mg of Lasix in the emergency room. With that his intake and output was -569 cc for yesterday evening. He put out 1125 cc. Today he is put out 1325 cc. Plan: 500 cc lactated ringer bolus. We may have over diuresed him. Hold off on Lasix. Continue beta-tamar, MARIANA inhibitor. Contact fibre cement moulder to let them know that the AICD is gone off 3 times in the last 2 weeks ECHO in the morning 08/17:Started with the [employer] fires from [facility]. He says he is never had asthma or COPD before. Nevertheless he really is wheezing on exam. At this time the differential for his dyspnea is the asthmatic pneumonitis versus cardiac asthma or both. He is adamant that he has been compliant with his medications. AICD has not gone off. While he is occasionally indiscrete with his diet and eating at [employer], he says he does not do that very often. Salt taste really bad ever since he had his gallbladder taken out. He takes carvedilol, digoxin, and Lasix. Also takes lisinopril. Plan: Resume those medications Lasix IV push twice daily Qualifiers: Heart failure type: systolic Qualified Code(s): I50.23 - Acute on chronic systolic (congestive) heart failure (3) Asthma Conclusion/Plan: 08/19:He continues to wheeze. Very positional. I do not think the steroids being reduced had anything to do with it. He is not worse than he was yesterday. There really is no way to visualize his throat short of a CAT scan. I would be doing that only if I suspected a tumor. Because it is an acute process I do not think that was going on. Plain film is probably likely be helpful because he is too big. As such we will continue to treat for asthma and consider throat imaging if he just does not get better. Plan: Continue Solu-Medrol, taper that. I had made the assumption that he was still on Rocephin and doxycycline. He is not. Will resume Rocephin. This is in the hopes that he has some element of bronchitis that would be responsive to antibiotics. Respiratory therapy really feels that it is upper airway and in his throat. 08/18: still wheezing and may be cardiac asthma. He actually has worse asthma when he is supine, lying down, going to sleep. Asthma gets better when he gets up. Minimal asthma with exertion down the hallway. Plan: reduce steroids to bid. then qd then stop. continue duoneb. 08/17:He denies that he has COPD. Solu-Medrol, doxycycline, ceftriaxone will be continued. No pneumonitis or pneumonia on chest x-ray. Plan: Reassess in the morning. Qualifiers: Asthma severity: moderate Asthma persistence: persistent Asthma complication type: with acute exacerbation Qualified Code(s): J45.41 - Moderate persistent asthma with (acute) exacerbation (4) Diabetes mellitus Conclusion/Plan: 08/19: With 15 units of Lantus last night, glucose was 175 this morning. 245 this afternoon. Plan is to increase him to 20 units of Lantus tonight. He will need to come off of the Lantus once the steroids stopped. 08/18: With the steroids of glucose is been steadily in the 290s range.A1c is 7.9%. Plan: Give Lantus 15 units tonight. 08/17:He says he does not take anything for diabetes. He is diet-controlled. Plan: Moderate scale sliding scale insulin Qualifiers: Diabetes mellitus type: type 2 Diabetes mellitus halfway insulin use: without halfway use Diabetes mellitus complication status: without complication Qualified Code(s): E11.9 - Type 2 diabetes mellitus without complications (5) Troponin level elevated Conclusion/Plan: He started at 39.3. Went down to 34.3. Trend is flat. Most likely due to the acute CHF and not true coronary ischemia. (6) Panic disorder Conclusion/Plan: Elements of agoraphobia, social anxiety. Even speaking about leaving the room causes him to be increasingly tachypneic and frantic. Hallucinations are really bothering him as well from the sleep deprivation. Plan: Ativan as needed Morphine as needed, resume citalopram
[2020-08-19] MEDS: AMIODARONE 200 MG TABLET PO SCH ×2 (11:52→21:00)
[2020-08-19 13:27] LABS: BASOPHILS % (AUTO) 0.2 %; EOSINOPHILS % (AUTO) 0.2 %; HGB - HEMOGLOBIN 14.1 g/dL (14.0-18.0); LYMPHOCYTES # (AUTO) 1.1 10^3/uL (1.5-3.5); LYMPHOCYTES % (AUTO) 8.9 %; MEAN CORPUSCULAR HEMOGLOBIN 28.4 pg (27.0-31.0); MEAN CORPUSCULAR HGB CONC 30.7 g/dL (32.0-36.0); MEAN CORPUSCULAR VOLUME 92.5 fL (80.0-94.0); MEAN PLATELET VOLUME 11.4 fL (7.4-11.4); MONOCYTES # (AUTO) 0.6 10^3/uL (0.0-1.0); NEUTROPHILS # (AUTO) 10.8 10^3/uL (1.5-6.6); NEUTROPHILS % (AUTO) 85.1 %; PLT - PLATELET COUNT 175 10^3/uL (130-450); RED BLOOD COUNT 4.96 10^6/uL (4.70-6.10); RED CELL DISTRIBUTION WIDTH 15.5 % (12.0-15.0); WHITE BLOOD COUNT 12.7 x10^3/uL (4.8-10.8)
[2020-08-19 13:42] LABS: ALBUMIN/GLOBULIN RATIO 1.5 (1.0-2.2); BILIRUBIN,TOTAL 1.5 mg/dL (0.2-1.0); CALCIUM 9.4 mg/dL (8.5-10.3); CREATININE 1.4 mg/dL (0.6-1.2); TOTAL PROTEIN 6.7 g/dL (6.7-8.2)
[2020-08-19] MEDS: SODIUM CHLORIDE FLUSH 0.9% 10 ML SYRINGE IVP PRN ×3 (14:27→21:02)
[2020-08-19] MEDS: cefTRIAXone 1 GM in SODIUM CHLORIDE 0.9% MINIBAG 100 ML IV SCH (14:28)
[2020-08-19] MEDS: AZITHROMYCIN INJ 500 MG in SODIUM CHLORIDE 0.9% 250 ML IV SCH (15:08)
[2020-08-19] MEDS: traZODone 50 MG TABLET PO PRN (21:00)
[2020-08-19] MEDS: polyethylene glycoL 3350 17 GM PACKET PO SCH (21:00)
[2020-08-19] MEDS: INSULIN GLARGINE 300 UNIT/3 ML PEN SUBQ SCH (21:29)
[2020-08-20] MEDS: guaiFENesin/CODEINE 5 ML UDC PO PRN (00:03)
[2020-08-20] MEDS: SODIUM CHLORIDE FLUSH 0.9% 10 ML SYRINGE IVP SCH ×4 (00:03→23:58)
[2020-08-20] MEDS: MORPHINE 2 MG/ML CARPUJECT IVP PRN ×2 (00:03→03:21)
[2020-08-20] MEDS: oxyCODONE 5 MG TABLET PO PRN ×2 (02:14→17:59)
[2020-08-20] MEDS: BENZONATATE 100 MG CAPSULE PO PRN ×2 (03:22→08:30)
[2020-08-20] MEDS: IPRATROPIUM/ALBUTEROL 3 ML NEB INH SCH ×4 (07:43→20:28)
[2020-08-20] MEDS: INSULIN ASPART 300 UNIT/3 ML PEN SUBQ SCH ×4 (07:54→22:06)
[2020-08-20] MEDS: polyethylene glycoL 3350 17 GM PACKET PO SCH (07:56)
[2020-08-20] MEDS: carvediloL 12.5 MG TABLET PO SCH ×2 (08:30→20:31)
[2020-08-20] MEDS: lisinopriL 5 MG TABLET PO SCH (08:31)
[2020-08-20] MEDS: methylPREDNISolone SUCCINATE 40 MG/ML VIAL IVP SCH (08:31)
[2020-08-20] MEDS: AMIODARONE 200 MG TABLET PO SCH ×2 (08:31→22:04)
[2020-08-20] MEDS: cefTRIAXone 1 GM in SODIUM CHLORIDE 0.9% MINIBAG 100 ML IV SCH (08:33)
[2020-08-20] MEDS: CITALOPRAM 10 MG TABLET PO SCH (08:40)
[2020-08-20] MEDS: AZITHROMYCIN INJ 500 MG in SODIUM CHLORIDE 0.9% 250 ML IV SCH (09:09)
[2020-08-20] MEDS ORDERED: FUROSEMIDE 40 MG/4 ML VIAL IVP SCH (09:30)
[2020-08-20] MEDS ORDERED: hydrALAZINE 25 MG TABLET PO SCH ×2 (10:00→14:00)
[2020-08-20] MEDS ORDERED: ISOSORBIDE MONONITRATE ER 30 MG TABLET PO SCH (10:00)
[2020-08-20] MEDS ORDERED: LORazepam 0.5 MG TABLET PO PRN (11:42)
[2020-08-20] MEDS ORDERED: MORPHINE 2 MG/ML CARPUJECT IVP PRN (11:42)
[2020-08-20] MEDS: MIDODRINE 2.5 MG TABLET PO SCH ×2 (11:59→17:03)
[2020-08-20] MEDS: SPIRONOLACTONE 25 MG TABLET PO SCH (12:00)
[2020-08-20] MEDS: ASPIRIN EC 81 MG TABLET PO SCH (12:00)
[2020-08-20] MEDS: ISOSORBIDE MONONITRATE ER 30 MG TABLET PO SCH (12:52)
[2020-08-20] MEDS: FUROSEMIDE 40 MG/4 ML VIAL IVP SCH (14:17)
--- NOTE | 2020-08-20 17:05 | PROVIDER PROGRESS NOTE ---
Assessment/Plan - Problem List (1) Hypotension Assessment/Plan: Blood pressure today has dropped as low as 66 systolic. This is indicative of a poor prognosis in a patient with severe cardiomyopathy. Will stagger his medications but continues to try to diurese. Since he is warm and dry despite blood pressures below 100 systolic, will continue current management, no transfer to the ICU for pressors. Start Midodrin tid with meals to help BP as well. (2) CHRIS (acute kidney injury) Assessment/Plan: Creatinine increased to 1.4 yesterday and remains 1.4 today. Because of this his Lasix was discontinued and he got boluses of saline. Will try to decrease his preload which is probably leading to cardiorenal syndrome. IV diuretics to be resumed. Follow BMP daily (3) Acute on chronic systolic heart failure, NYHA class 4 Assessment/Plan: 08/20: He is severely orthopneic again and has audible wheezing only when he is supine. This sounds like cardiac asthma. We will stop the IV antibiotics in order to decrease IV fluids. We will switch to 1 additional Zithromax. We will resume IV Lasix. Follow I's and O's We will start spironolactone. We will stop MARIANA inhibitor due to elevated creatinine and start hydralazine nitrates in its place. His meds need to be staggered and dose is decreased because of his hypotension 08/19: I spoke to his technical services analyst, Kadeem Diez PA-C who works at [facility]. Patient was due to be seen this last week but did not show. Review of his AICD data shows to his pacer to gone off twice on the same day approximately July 26. We went over symptoms that day where the patient told me about how he was getting a burger for his son and as he entered the entryway he lost consciousness and the AICD went off. We also discussed the new Echo result that shows his ejection fraction has deteriorated. It is less than 20% now. Plan: No change in current medication. Stay on the same beta-tamar diuretic, MARIANA inhibitor. Add amiodarone 400 mg p.o. twice daily for a week. Then 200 mg p.o. twice daily for 2 weeks. Then 200 mg p.o. daily thereafter. Patient needs to follow-up with his appointment. 08/18: He now tells me that the AICD has gone off twice in the last couple of weeks. About 4 days ago he had ridden his bicycle to [employer] and get a burger for his son. He felt very weak and wobbly as he was bicycling back. Got off his bike, walk up the stairs to his apartment, as he opened the door to give his son the burger, he lost consciousness. Son says that he fell to the ground and his body jerked with his arms flailed open as the AICD went off. In reviewing his labs this morning, he has acute renal insufficiency. BUN and creatinine have gone up to 45 1.4. He received 80 mg of Lasix in the emergency room. With that his intake and output was -569 cc for yesterday evening. He put out 1125 cc. Today he is put out 1325 cc. Plan: 500 cc lactated ringer bolus. We may have over diuresed him. Hold off on Lasix. Continue beta-tamar, MARIANA inhibitor. Contact technical services analyst to let them know that the AICD is gone off 3 times in the last 2 weeks ECHO in the morning 08/17:Started with the [employer] fires from [facility]. He says he is never had asthma or COPD before. Nevertheless he really is wheezing on exam. At this time the differential for his dyspnea is the asthmatic pneumonitis versus cardiac asthma or both. He is adamant that he has been compliant with his medications. AICD has not gone off. While he is occasionally indiscrete with his diet and eating at [employer], he says he does not do that very often. Salt taste really bad ever since he had his gallbladder taken out. He takes carvedilol, digoxin, and Lasix. Also takes lisinopril. Plan: Resume those medications Lasix IV push twice daily (4) Cardiac asthma Assessment/Plan: 08/20: Wheezing is only heard when he is supine. This indicates cardiac asthma. We will treat as for CHF as above 08/19:He continues to wheeze. Very positional. I do not think the steroids being reduced had anything to do with it. He is not worse than he was yesterday. There really is no way to visualize his throat short of a CAT scan. I would be doing that only if I suspected a tumor. Because it is an acute process I do not think that was going on. Plain film is probably likely be helpful because he is too big. As such we will continue to treat for asthma and consider throat imaging if he just does not get better. Plan: Continue Solu-Medrol, taper that. I had made the assumption that he was still on Rocephin and doxycycline. He is not. Will resume Rocephin. This is in the hopes that he has some element of bronchitis that would be responsive to antibiotics. Respiratory therapy really feels that it is upper airway and in his throat. 08/18: still wheezing and may be cardiac asthma. He actually has worse asthma when he is supine, lying down, going to sleep. Asthma gets better when he gets up. Minimal asthma with exertion down the hallway. Plan: reduce steroids to bid. then qd then stop. continue duoneb. 08/17:He denies that he has COPD. Solu-Medrol, doxycycline, ceftriaxone will be continued. No pneumonitis or pneumonia on chest x-ray. (5) Diabetes mellitus Assessment/Plan: 08/20: Continue sliding scale insulin, Lantus coverage and carb controlled diet 08/19: With 15 units of Lantus last night, glucose was 175 this morning. 245 this afternoon. Plan is to increase him to 20 units of Lantus tonight. He will need to come off of the Lantus once the steroids stopped. 08/18: With the steroids of glucose is been steadily in the 290s range.A1c is 7.9%. Plan: Give Lantus 15 units tonight. 08/17:He says he does not take anything for diabetes. He is diet-controlled. Plan: Moderate scale sliding scale insulin Qualifiers: Diabetes mellitus type: type 2 Diabetes mellitus adjunct faculty for medical terminology insulin use: without adjunct faculty for medical terminology use Diabetes mellitus complication status: without complication Qualified Code(s): E11.9 - Type 2 diabetes mellitus without complications (6) Panic disorder Assessment/Plan: Continue with medications as needed for this - Current Meds Current Meds: Current Medications Generic Name Dose Route Start Last Admin Trade Name Freq PRN Reason Stop Dose Admin Acetaminophen 650 mg 08/17/20 14:00 08/17/20 22:35 Tylenol PO 650 mg Q4HR PRN Administration Pain 1 to 4 Albuterol 2.5 mg 08/17/20 17:48 08/19/20 04:17 INH 2.5 mg RTQ4H PRN Administration Wheezing Albuterol/Ipratropium 3 ml 08/17/20 19:00 08/20/20 15:42 Duoneb INH 3 ml RTQID JITENDRA Administration Aspirin 81 mg 08/20/20 10:00 08/20/20 12:00 Ecotrin PO 81 mg DAILY JITENDRA Administration Benzonatate 100 mg 08/18/20 00:00 08/20/20 08:30 Tessalon PO 100 mg TID PRN Administration Cough Citalopram Hydrobromide 10 mg 08/17/20 21:00 08/20/20 08:40 Celexa PO 10 mg DAILY JITENDRA Administration Furosemide 40 mg 08/20/20 11:39 08/20/20 14:17 Lasix Inj 40 Mg Vial IVP Not Given BIDDIURETIC JITENDRA Guaifenesin/Codeine Phosphate 5 ml 08/19/20 09:09 08/20/20 00:03 Robitussin Ac PO 5 ml Q6HR PRN Administration Cough Hydralazine HCl 10 mg 08/20/20 14:00 08/20/20 14:18 Apresoline PO Not Given TID [facility] Insulin Aspart 3 - 11 unit 08/19/20 21:00 08/20/20 17:02 Novolog SUBQ 3 unit 0800,1200,1700,2100 JITENDRA Administration Protocol Insulin Glargine 20 unit 08/19/20 21:00 08/19/20 21:29 Lantus Solostar SUBQ 20 unit QPM JITENDRA Administration Isosorbide Mononitrate 15 mg 08/20/20 12:00 08/20/20 12:52 Imdur PO Not Given 1200 JITENDRA Midodrine 5 mg 08/20/20 12:00 08/20/20 17:03 PO 5 mg TIDWM JITENDRA Administration Oxycodone HCl 5 mg 08/17/20 14:00 08/20/20 02:14 Roxicodone PO 5 mg Q4HR PRN Administration Pain 5 to 7 Polyethylene Glycol 17 gm 08/19/20 21:00 08/20/20 07:56 Miralax PO 17 gm DAILY JITENDRA Administration Sodium Chloride 10 ml 08/17/20 14:00 08/19/20 21:02 Normal Saline Flush 0.9% IVP 10 ml PRN PRN Administration NEEDED PER PROVIDER ORDERS Sodium Chloride 10 ml 08/17/20 17:00 08/20/20 08:30 Normal Saline Flush 0.9% IVP 10 ml 0100,0900,1700 JITENDRA Administration Spironolactone 25 mg 08/20/20 10:00 08/20/20 12:00 Aldactone PO 25 mg DAILY JITENDRA Administration Trazodone HCl 50 mg 08/19/20 20:17 08/19/20 21:00 Desyrel PO 50 mg QPM PRN Administration Insomnia - Lab Result Fish Bone Diagrams: 08/19/20 13:20 08/19/20 13:20 - Additional Planning My Orders: My Active Orders 08/20/20 10:00 Aspirin EC [Ecotrin] 81 mg PO DAILY Spironolactone [Aldactone] 25 mg PO DAILY 08/20/20 11:36 Nocturnal O2 Saturation Study [RC] .ONCE 08/20/20 11:39 FUROSEMIDE INJ 40mg VIAL [LASIX INJ 40 mg VIAL] 40 mg IVP BIDDIURETIC 08/20/20 11:40 Amiodarone [Pacerone] 400 mg PO BID 08/20/20 11:42 LORazepam [Ativan] 0.5 mg PO Q12H PRN Morphine Inj (Carpuject) [Morphine (Carpuject)] 1 mg IVP Q4HR PRN 08/20/20 12:00 Isosorbide Mononitrate ER [Imdur] 15 mg PO 1200 Midodrine 5 mg PO TIDWM 08/20/20 14:00 hydrALAZINE [Apresoline] 10 mg PO TID 08/20/20 15:55 Nutrition Consult [CONS] Routine 08/20/20 21:00 Pravastatin [Pravachol] 20 mg PO QPM carvediloL [Coreg] 6.25 mg PO BID 08/21/20 09:00 Azithromycin [Zithromax] 500 mg PO ONCE ONE methylPREDNISolone SUCCINATE [SOLU-Medrol (40MG VIAL)] 40 mg IVP DAILY Subjective - Subjective Patient Reports: Feeling Better, Resting Comfortably Objective Vital Signs: Vital Signs - 24 hr 08/19/20 08/19/20 08/19/20 20:59 21:00 21:17 Temperature 35.6 C L Heart Rate 81 Heart Rate [ 70 81 Brachial] Respiratory 20 20 Rate Blood Pressure [Left Brachial artery] Blood Pressure 138/99 H [Right Brachial artery] O2 Saturation 93 08/19/20 08/20/20 08/20/20 23:55 03:20 07:45 Temperature 36.8 C 36.4 C L Heart Rate 60 Heart Rate [ 70 80 Brachial] Respiratory 24 20 18 Rate Blood Pressure [Left Brachial artery] Blood Pressure 116/89 H 115/85 H [Right Brachial artery] O2 Saturation 98 97 08/20/20 08/20/20 08/20/20 08:01 10:07 10:11 Temperature Heart Rate Heart Rate [ 90 68 Brachial] Respiratory Rate Blood Pressure 72/57 L [Left Brachial artery] Blood Pressure 101/83 H 67/25 L [Right Brachial artery] O2 Saturation 95 08/20/20 08/20/20 08/20/20 10:13 10:23 10:30 Temperature Heart Rate Heart Rate [ 81 77 Brachial] Respiratory Rate Blood Pressure [Left Brachial artery] Blood Pressure 55/33 L 104/86 H 88/71 L [Right Brachial artery] O2 Saturation 100 99 08/20/20 08/20/20 08/20/20 10:45 11:00 11:08 Temperature Heart Rate 60 Heart Rate [ 80 69 Brachial] Respiratory 18 Rate Blood Pressure [Left Brachial artery] Blood Pressure 87/66 L 88/70 L [Right Brachial artery] O2 Saturation 08/20/20 08/20/20 08/20/20 12:45 13:00 14:18 Temperature Heart Rate Heart Rate [ 70 69 70 Brachial] Respiratory Rate Blood Pressure [Left Brachial artery] Blood Pressure 88/52 L 101/71 94/69 [Right Brachial artery] O2 Saturation 95 08/20/20 08/20/20 15:36 15:44 Temperature 35.9 C L Heart Rate 60 Heart Rate [ 60 Brachial] Respiratory 18 18 Rate Blood Pressure [Left Brachial artery] Blood Pressure 91/64 [Right Brachial artery] O2 Saturation 96 Oxygen O2 Source Nasal cannula I&O (Last 24 Hrs): Intake and Output Totals x24h 08/18/20 08/19/20 08/20/20 23:59 23:59 23:59 Intake Total 2656 2110 970 Output Total 1999 1835 250 Balance 656 275 720 General: Alert, Oriented x3 HEENT: Mucous membr. moist/pink, Other (Large soft mass of forehead (old)) Neck: Supple Neuro: Alert, Non Focal Respiratory: Breath sounds nml (Normal on R, diminished on L, no wheezes (sitting 80 degrees upright).) Abdomen: Other (Very distended with pannus, cannotr r/o ascites) Extremities: Other (1+ pedal edema) - Results Results: Laboratory Results WBC 12.7 x10^3/uL (4.8-10.8) H 08/19/20 13:20 RBC 4.96 10^6/uL (4.70-6.10) 08/19/20 13:20 Hgb 14.1 g/dL (14.0-18.0) 08/19/20 13:20 Hct 45.9 % (42.0-52.0) 08/19/20 13:20 MCV 92.5 fL (80.0-94.0) 08/19/20 13:20 MCH 28.4 pg (27.0-31.0) 08/19/20 13:20 MCHC 30.7 g/dL (32.0-36.0) L 08/19/20 13:20 RDW 15.5 % (12.0-15.0) H 08/19/20 13:20 Plt Count 175 10^3/uL (130-450) 08/19/20 13:20 MPV 11.4 fL (7.4-11.4) 08/19/20 13:20 Neut # (Auto) 10.8 10^3/uL (1.5-6.6) H 08/19/20 13:20 Lymph # (Auto) 1.1 10^3/uL (1.5-3.5) L 08/19/20 13:20 Elbert # (Auto) 0.6 10^3/uL (0.0-1.0) 08/19/20 13:20 Eos # (Auto) 0.0 10^3/uL (0.0-0.7) 08/19/20 13:20 Baso # (Auto) 0.0 10^3/uL (0.0-0.1) 08/19/20 13:20 Absolute Nucleated RBC 0.00 x10^3/uL 08/19/20 13:20 Nucleated RBC % 0.0 /100WBC 08/19/20 13:20 PT 14.8 secs (9.9-12.6) H 08/17/20 11:58 INR 1.3 (0.8-1.2) H 08/17/20 11:58 Sodium 134 mmol/L (135-145) L 08/19/20 13:20 Potassium 4.9 mmol/L (3.5-5.0) 08/19/20 13:20 Chloride 94 mmol/L (101-111) L 08/19/20 13:20 Carbon Dioxide 26 mmol/L (21-32) 08/19/20 13:20 Anion Gap 14.0 (6-13) H 08/19/20 13:20 BUN 45 mg/dL (6-20) H 08/19/20 13:20 Creatinine 1.4 mg/dL (0.6-1.2) H 08/19/20 13:20 Estimated GFR (MDRD) 52 (>89) L 08/19/20 13:20 Glucose 283 mg/dL (70-100) H 08/19/20 13:20 POC Whole Bld Glucose 164 mg/dL (70 - 100) H 08/20/20 16:26 Estimat Average Glucose 180 mg/dL (70-100) H 08/17/20 11:58 Hemoglobin A1c % 7.9 % (4.27-6.07) H 08/17/20 11:58 Calcium 9.4 mg/dL (8.5-10.3) 08/19/20 13:20 Phosphorus 5.1 mg/dL (2.5-4.6) H 08/18/20 05:26 Magnesium 2.5 mg/dL (1.7-2.8) 08/20/20 10:23 Total Bilirubin 1.5 mg/dL (0.2-1.0) H 08/19/20 13:20 AST 21 IU/L (10-42) 08/19/20 13:20 ALT 23 IU/L (10-60) 08/19/20 13:20 Alkaline Phosphatase 43 IU/L (42-121) 08/19/20 13:20 Troponin I High Sens 34.4 ng/L (2.3-19.7) H* 08/17/20 18:03 B-Natriuretic Peptide 690 pg/mL (5-100) H 08/20/20 10:23 Total Protein 6.7 g/dL (6.7-8.2) 08/19/20 13:20 Albumin 4.0 g/dL (3.2-5.5) 08/19/20 13:20 Globulin 2.7 g/dL (2.1-4.2) 08/19/20 13:20 Albumin/Globulin Ratio 1.5 (1.0-2.2) 08/19/20 13:20 Lipase 25 U/L (22-51) 08/17/20 11:58 Last Dose Date UNKNOWN 08/17/20 11:58 Last Dose Time UNKNOWN 08/17/20 11:58 Digoxin < 0.2 ng/mL 08/17/20 11:58 - Procedures Procedures: Procedures ENDOSC POLYPECTOMY OF LG INTEST (04/29/15)
[2020-08-20] MEDS ORDERED: carvediloL 12.5 MG TABLET PO SCH (21:00)
[2020-08-20] MEDS: PRAVASTATIN 10 MG TABLET PO SCH (22:04)
[2020-08-20] MEDS: INSULIN GLARGINE 300 UNIT/3 ML PEN SUBQ SCH (22:05)
[2020-08-20] MEDS: traZODone 50 MG TABLET PO PRN (22:05)
[2020-08-20] MEDS: hydrALAZINE 10 MG TABLET PO SCH (22:16)
[2020-08-21 05:30] LABS: BASOPHILS % (AUTO) 0.2 %; EOSINOPHILS % (AUTO) 0.1 %; HGB - HEMOGLOBIN 15.5 g/dL (14.0-18.0); LYMPHOCYTES # (AUTO) 2.9 10^3/uL (1.5-3.5); LYMPHOCYTES % (AUTO) 16.2 %; MEAN CORPUSCULAR HEMOGLOBIN 28.9 pg (27.0-31.0); MEAN CORPUSCULAR HGB CONC 31.3 g/dL (32.0-36.0); MEAN CORPUSCULAR VOLUME 92.2 fL (80.0-94.0); MEAN PLATELET VOLUME 11.1 fL (7.4-11.4); MONOCYTES # (AUTO) 2.2 10^3/uL (0.0-1.0); MONOCYTES % (AUTO) 12.2 %; NEUTROPHILS # (AUTO) 12.7 10^3/uL (1.5-6.6); NEUTROPHILS % (AUTO) 70.2 %; PLT - PLATELET COUNT 240 10^3/uL (130-450); RED BLOOD COUNT 5.37 10^6/uL (4.70-6.10); RED CELL DISTRIBUTION WIDTH 15.6 % (12.0-15.0); WHITE BLOOD COUNT 18.1 x10^3/uL (4.8-10.8)
[2020-08-21 05:36] LABS: CALCIUM 8.7 mg/dL (8.5-10.3); CREATININE 1.9 mg/dL (0.6-1.2)
[2020-08-21] MEDS: hydrALAZINE 10 MG TABLET PO SCH ×3 (05:54→22:26)
[2020-08-21] MEDS: FUROSEMIDE 40 MG/4 ML VIAL IVP SCH ×2 (05:54→14:01)
[2020-08-21 06:06] LABS: DIFFERENTIAL COMMENT MANUAL=AUTO DIFF; PLATELET ESTIMATE, MANUAL NORMAL (130-450,000) (NORMAL); RBC MORPHOLOGY (MULTIPLE) NORMAL APPEARANCE (NORMAL)
[2020-08-21] MEDS ORDERED: INSULIN REGULAR HUMAN 300 UNIT/3 ML VIAL IVP ONE (06:27)
[2020-08-21] MEDS ORDERED: DEXTROSE 10% 250 ML IV STA (06:27)
[2020-08-21] MEDS: IPRATROPIUM/ALBUTEROL 3 ML NEB INH SCH ×4 (07:47→19:49)
[2020-08-21] MEDS: ONDANSETRON 4 MG/2 ML VIAL IVP PRN ×2 (08:32→20:06)
[2020-08-21] MEDS: INSULIN ASPART 300 UNIT/3 ML PEN SUBQ SCH ×4 (08:36→20:48)
[2020-08-21] MEDS ORDERED: methylPREDNISolone SUCCINATE 40 MG/ML VIAL IVP SCH (09:00)
[2020-08-21] MEDS ORDERED: ALBUTEROL NEB 2.5 MG/3 ML INH SCH (09:00)
[2020-08-21] MEDS ORDERED: AZITHROMYCIN 250 MG TABLET PO ONE ×2 (09:00→11:00)
[2020-08-21] MEDS: ASPIRIN EC 81 MG TABLET PO SCH (10:09)
[2020-08-21] MEDS: AMIODARONE 200 MG TABLET PO SCH ×2 (10:09→20:07)
[2020-08-21] MEDS: CITALOPRAM 10 MG TABLET PO SCH (10:09)
[2020-08-21] MEDS: MIDODRINE 2.5 MG TABLET PO SCH ×3 (10:09→16:51)
[2020-08-21] MEDS: carvediloL 12.5 MG TABLET PO SCH ×2 (10:10→20:06)
[2020-08-21] MEDS: SPIRONOLACTONE 25 MG TABLET PO SCH (10:11)
[2020-08-21] MEDS: polyethylene glycoL 3350 17 GM PACKET PO SCH (10:11)
[2020-08-21] MEDS: SODIUM CHLORIDE FLUSH 0.9% 10 ML SYRINGE IVP SCH ×2 (10:21→16:52)
--- NOTE | 2020-08-21 11:53 | PROVIDER PROGRESS NOTE ---
Assessment/Plan - Problem List (1) Hypotension Assessment/Plan: Slightly improved, probably due to imitiating Midodrine tid with meals. Since there was no IV Lasix for about 3 days and other cardiac meds were on hold because of hypotension, he has not had adequate diuresis for managing his CHF exacerbation. No discharge today. (2) CHRIS (acute kidney injury) Assessment/Plan: Increase from 1.4-1.9, since he is in positive fluid balance, this is probably cardiorenal syndrome with high renal venous pressure. Resuming IV Lasix twice daily and adjusting his other medications for CHF management, is the plan going forward (3) Acute on chronic systolic heart failure, NYHA class 4 Assessment/Plan: The LV EF was 30%, but during this hospitalization a repeat Echo showed EF of 20%. Since he needs to be on Amiodarone because of defibrillator discharges (presumably for V. tach), his Coreg dose needs to be decreased. MARIANA inhibitor stopped yesterday and in its place hydralazine and nitrates to be started. Spironolactone started yesterday. IV twice daily Lasix is resumed today since blood pressure has improved. Follow I's and O's. Up until now he has been 1.5 L positive during this hospitalization, not neg Monitor daily weight (it was not ordered to be done until I ordered that today). 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 These episodes were V. tach. He has been started on Amiodarone 400 twice daily here for a week then 200 twice daily for a week then 200 mg daily continuously because of the above V. tach (5) Cardiac asthma Assessment/Plan: He had documented wheezing only when he is was supine, earlier this admission. He has no history of COPD or asthma. We will decrease the doses of nebulizer treatments (6) Diabetes mellitus Assessment/Plan: Hypoglycemia occurred this morning. We will decrease his insulin coverage. Continue with carb controlled diet and sliding scale coverage (7) Panic disorder Assessment/Plan: He remains on anxiolytics for the - Current Meds Current Meds: Current Medications Generic Name Dose Route Start Last Admin Trade Name Freq PRN Reason Stop Dose Admin Acetaminophen 650 mg 08/17/20 14:00 08/17/20 22:35 Tylenol PO 650 mg Q4HR PRN Administration Pain 1 to 4 Albuterol/Ipratropium 3 ml 08/17/20 19:00 08/21/20 07:47 Duoneb INH 3 ml RTQID JITENDRA Administration Amiodarone HCl 400 mg 08/20/20 11:40 08/21/20 10:09 Pacerone PO 400 mg BID JITENDRA Administration Aspirin 81 mg 08/20/20 10:00 08/21/20 10:09 Ecotrin PO 81 mg DAILY JITENDRA Administration Benzonatate 100 mg 08/18/20 00:00 08/20/20 08:30 Tessalon PO 100 mg TID PRN Administration Cough Carvedilol 6.25 mg 08/20/20 21:00 08/21/20 10:10 Coreg PO 6.25 mg BID JITENDRA Administration Citalopram Hydrobromide 10 mg 08/17/20 21:00 08/21/20 10:09 Celexa PO 10 mg DAILY JITENDRA Administration Furosemide 40 mg 08/20/20 11:39 08/21/20 05:54 Lasix Inj 40 Mg Vial IVP 40 mg BIDDIURETIC JITENDRA Administration Guaifenesin/Codeine Phosphate 5 ml 08/19/20 09:09 08/20/20 00:03 Robitussin Ac PO 5 ml Q6HR PRN Administration Cough Hydralazine HCl 10 mg 08/20/20 22:00 08/21/20 05:54 Apresoline PO 10 mg TID JITENDRA Administration Insulin Aspart 3 - 11 unit 08/19/20 21:00 08/21/20 08:36 Novolog SUBQ Not Given 0800,1200,1700,2100 [facility] Protocol Insulin Glargine 20 unit 08/19/20 21:00 08/20/20 22:05 Lantus Solostar SUBQ 20 unit QPM [facility] Administration Isosorbide Mononitrate 15 mg 08/20/20 12:00 08/20/20 12:52 Imdur PO Not Given 1200 [facility] Lorazepam 0.5 mg 08/20/20 11:42 08/21/20 03:10 Ativan PO 0.5 mg Q12H PRN Administration Anxiety Midodrine 5 mg 08/20/20 12:00 08/21/20 10:09 PO 5 mg TIDWM JITENDRA Administration Ondansetron HCl 4 mg 08/21/20 08:10 08/21/20 08:32 Zofran Inj IVP 4 mg Q4HR PRN Administration Nausea / Vomiting Oxycodone HCl 5 mg 08/17/20 14:00 08/20/20 17:59 Roxicodone PO 5 mg Q4HR PRN Administration Pain 5 to 7 Polyethylene Glycol 17 gm 08/19/20 21:00 08/21/20 10:11 Miralax PO 17 gm DAILY JITENDRA Administration Pravastatin Sodium 20 mg 08/20/20 21:00 08/20/20 22:04 Pravachol PO 20 mg QPM JITENDRA Administration Sodium Chloride 10 ml 08/17/20 14:00 08/19/20 21:02 Normal Saline Flush 0.9% IVP 10 ml PRN PRN Administration NEEDED PER PROVIDER ORDERS Sodium Chloride 10 ml 08/17/20 17:00 08/21/20 10:21 Normal Saline Flush 0.9% IVP 10 ml 0100,0900,1700 JITENDRA Administration Spironolactone 25 mg 08/20/20 10:00 08/21/20 10:11 Aldactone PO 25 mg DAILY JITENDRA Administration Trazodone HCl 50 mg 08/19/20 20:17 08/20/20 22:05 Desyrel PO 50 mg QPM PRN Administration Insomnia - Lab Result Fish Bone Diagrams: 08/21/20 05:20 08/21/20 05:20 - Additional Planning My Orders: My Active Orders 08/20/20 11:36 Nocturnal O2 Saturation Study [RC] .ONCE 08/20/20 11:39 FUROSEMIDE INJ 40mg VIAL [LASIX INJ 40 mg VIAL] 40 mg IVP BIDDIURETIC 08/20/20 11:40 Amiodarone [Pacerone] 400 mg PO BID 08/20/20 11:42 LORazepam [Ativan] 0.5 mg PO Q12H PRN Morphine Inj (Carpuject) [Morphine (Carpuject)] 1 mg IVP Q4HR PRN 08/20/20 12:00 Isosorbide Mononitrate ER [Imdur] 15 mg PO 1200 Midodrine 5 mg PO TIDWM 08/20/20 15:55 Nutrition Consult [CONS] Routine 08/20/20 21:00 Pravastatin [Pravachol] 20 mg PO QPM carvediloL [Coreg] 6.25 mg PO BID 08/20/20 22:00 hydrALAZINE [Apresoline] 10 mg PO TID 08/21/20 08:10 Ondansetron Inj [Zofran Inj] 4 mg IVP Q4HR PRN 08/21/20 08:12 Daily Weight [RC] 0600 08/21/20 09:00 Albuterol 2.5 mg INH RTQ6H 08/22/20 05:00 MAGNESIUM [CHEM] DAILYLAB Subjective - Subjective Patient Reports: Resting Comfortably (Still has orthopnea), Nausea (vomited during neb treatment and glu was 51 at the time) Objective Vital Signs: Vital Signs - 24 hr 08/20/20 08/20/20 08/20/20 12:45 13:00 14:18 Temperature Heart Rate Heart Rate [ 70 69 70 Brachial] Respiratory Rate Blood Pressure 88/52 L 101/71 94/69 [Right Brachial artery] O2 Saturation 95 08/20/20 08/20/20 08/20/20 15:36 15:44 20:30 Temperature 35.9 C L Heart Rate 60 72 Heart Rate [ 60 Brachial] Respiratory 18 18 20 Rate Blood Pressure 91/64 [Right Brachial artery] O2 Saturation 96 08/20/20 08/20/20 08/20/20 20:34 22:03 23:56 Temperature 35.4 C L 36.3 C L Heart Rate Heart Rate [ 71 103 H 66 Brachial] Respiratory 18 20 Rate Blood Pressure 99/73 109/82 H 117/69 [Right Brachial artery] O2 Saturation 98 98 99 08/21/20 08/21/20 08/21/20 03:05 05:43 07:35 Temperature 36.3 C L 35.8 C L 36.2 C L Heart Rate Heart Rate [ 63 70 61 Brachial] Respiratory 20 22 24 Rate Blood Pressure 110/86 H 109/84 H 127/97 H [Right Brachial artery] O2 Saturation 96 93 98 08/21/20 07:48 Temperature Heart Rate 68 Heart Rate [ Brachial] Respiratory 20 Rate Blood Pressure [Right Brachial artery] O2 Saturation Oxygen O2 Source Nasal cannula I&O (Last 24 Hrs): Intake and Output Totals x24h 08/19/20 08/20/20 08/21/20 23:59 23:59 23:59 Intake Total 0 1357 830 Output Total 9126 057 500 Balance 275 832 330 General: Alert, Other (Falls asleep during our conversation.) HEENT: Mucous membr. moist/pink Neck: Supple Neuro: Alert, Non Focal Cardiovascular: Regular rate Respiratory: Breath sounds nml (anyeteriorly) Abdomen: Soft, Other (Obese with pannus) Extremities: Other (1+ edema) - Results Results: Laboratory Results WBC 18.1 x10^3/uL (4.8-10.8) H 08/21/20 05:20 RBC 5.37 10^6/uL (4.70-6.10) 08/21/20 05:20 Hgb 15.5 g/dL (14.0-18.0) 08/21/20 05:20 Hct 49.5 % (42.0-52.0) 08/21/20 05:20 MCV 92.2 fL (80.0-94.0) 08/21/20 05:20 MCH 28.9 pg (27.0-31.0) 08/21/20 05:20 MCHC 31.3 g/dL (32.0-36.0) L 08/21/20 05:20 RDW 15.6 % (12.0-15.0) H 08/21/20 05:20 Plt Count 240 10^3/uL (130-450) 08/21/20 05:20 MPV 11.1 fL (7.4-11.4) 08/21/20 05:20 Neut # (Auto) 12.7 10^3/uL (1.5-6.6) H 08/21/20 05:20 Lymph # (Auto) 2.9 10^3/uL (1.5-3.5) 08/21/20 05:20 [place] # (Auto) 2.2 10^3/uL (0.0-1.0) H 08/21/20 05:20 Eos # (Auto) 0.0 10^3/uL (0.0-0.7) 08/21/20 05:20 Baso # (Auto) 0.0 10^3/uL (0.0-0.1) 08/21/20 05:20 Absolute Nucleated RBC 0.04 x10^3/uL 08/21/20 05:20 Band Neuts % (Manual) Not Reportable 08/21/20 05:20 Abnorm Lymph % (Manual) Not Reportable 08/21/20 05:20 Nucleated RBC % 0.2 /100WBC 08/21/20 05:20 Neutrophils # (Manual) Not Reportable 08/21/20 05:20 Lymphocytes # (Manual) Not Reportable 08/21/20 05:20 Monocytes # (Manual) Not Reportable 08/21/20 05:20 Eosinophils # (Manual) Not Reportable 08/21/20 05:20 Basophils # (Manual) Not Reportable 08/21/20 05:20 Differential Comment MANUAL=AUTO DIFF 08/21/20 05:20 Platelet Estimate NORMAL (130-450,000) (NORMAL) 08/21/20 05:20 RBC Morph Micro Appear NORMAL APPEARANCE (NORMAL) 08/21/20 05:20 PT 14.8 secs (9.9-12.6) H 08/17/20 11:58 INR 1.3 (0.8-1.2) H 08/17/20 11:58 Sodium 132 mmol/L (135-145) L 08/21/20 05:20 Potassium 5.7 mmol/L (3.5-5.0) H 08/21/20 05:20 Chloride 95 mmol/L (101-111) L 08/21/20 05:20 Carbon Dioxide 25 mmol/L (21-32) 08/21/20 05:20 Anion Gap 12.0 (6-13) 08/21/20 05:20 BUN 70 mg/dL (6-20) H 08/21/20 05:20 Creatinine 1.9 mg/dL (0.6-1.2) H 08/21/20 05:20 Estimated GFR (MDRD) 37 (>89) L 08/21/20 05:20 Glucose 118 mg/dL (70-100) H 08/21/20 05:20 POC Whole Bld Glucose 189 mg/dL (70 - 100) H 08/21/20 11:04 Estimat Average Glucose 180 mg/dL (70-100) H 08/17/20 11:58 Hemoglobin A1c % 7.9 % (4.27-6.07) H 08/17/20 11:58 Calcium 8.7 mg/dL (8.5-10.3) 08/21/20 05:20 Phosphorus 5.1 mg/dL (2.5-4.6) H 08/18/20 05:26 Magnesium 2.5 mg/dL (1.7-2.8) 08/20/20 10:23 Total Bilirubin 1.5 mg/dL (0.2-1.0) H 08/19/20 13:20 AST 21 IU/L (10-42) 08/19/20 13:20 ALT 23 IU/L (10-60) 08/19/20 13:20 Alkaline Phosphatase 43 IU/L (42-121) 08/19/20 13:20 Troponin I High Sens 34.4 ng/L (2.3-19.7) H* 08/17/20 18:03 B-Natriuretic Peptide 690 pg/mL (5-100) H 08/20/20 10:23 Total Protein 6.7 g/dL (6.7-8.2) 08/19/20 13:20 Albumin 4.0 g/dL (3.2-5.5) 08/19/20 13:20 Globulin 2.7 g/dL (2.1-4.2) 08/19/20 13:20 Albumin/Globulin Ratio 1.5 (1.0-2.2) 08/19/20 13:20 Lipase 25 U/L (22-51) 08/17/20 11:58 Last Dose Date UNKNOWN 08/17/20 11:58 Last Dose Time UNKNOWN 08/17/20 11:58 Digoxin < 0.2 ng/mL 08/17/20 11:58 - Procedures Procedures: Procedures ENDOSC POLYPECTOMY OF LG INTEST (04/29/15)
[2020-08-21] MEDS: ISOSORBIDE MONONITRATE ER 30 MG TABLET PO SCH (14:00)
[2020-08-21] MEDS: BENZONATATE 100 MG CAPSULE PO PRN ×2 (15:06→18:34)
[2020-08-21] MEDS: guaiFENesin/CODEINE 5 ML UDC PO PRN ×2 (16:52→22:26)
[2020-08-21] MEDS: PRAVASTATIN 10 MG TABLET PO SCH (20:07)
[2020-08-21] MEDS ORDERED: INSULIN GLARGINE 300 UNIT/3 ML PEN SUBQ SCH (21:00)
[2020-08-21] MEDS: traZODone 50 MG TABLET PO PRN (22:26)
[2020-08-22] MEDS: SODIUM CHLORIDE FLUSH 0.9% 10 ML SYRINGE IVP SCH ×3 (01:03→17:08)
[2020-08-22] MEDS: BENZONATATE 100 MG CAPSULE PO PRN ×2 (01:38→17:04)
[2020-08-22] MEDS ORDERED: BENZOCAINE/MENTHOL LOZENGE MM PRN (02:24)
[2020-08-22 05:36] LABS: BASOPHILS % (AUTO) 0.3 %; EOSINOPHILS % (AUTO) 0.1 %; HGB - HEMOGLOBIN 15.6 g/dL (14.0-18.0); LYMPHOCYTES % (AUTO) 13.2 %; MEAN CORPUSCULAR HGB CONC 31.1 g/dL (32.0-36.0); MEAN CORPUSCULAR VOLUME 93.1 fL (80.0-94.0); MEAN PLATELET VOLUME 10.9 fL (7.4-11.4); MONOCYTES % (AUTO) 11.9 %; PLT - PLATELET COUNT 246 10^3/uL (130-450); RED BLOOD COUNT 5.38 10^6/uL (4.70-6.10); RED CELL DISTRIBUTION WIDTH 15.5 % (12.0-15.0); WHITE BLOOD COUNT 17.1 x10^3/uL (4.8-10.8)
[2020-08-22 05:39] LABS: ABNORMAL LYMPHS % (MANUAL) 0 %; BAND NEUTROPHILS % (MANUAL) 0 %
[2020-08-22 05:44] LABS: CALCIUM 8.6 mg/dL (8.5-10.3); MAGNESIUM 3.1 mg/dL (1.7-2.8)
[2020-08-22 06:07] LABS: DIFFERENTIAL COMMENT MANUAL DIFFERENTIAL; LYMPHOCYTES # (MANUAL) 2.7 10^3/uL (1.5-3.5); LYMPHOCYTES % (MANUAL) 16 %; MONOCYTES # (MANUAL) 2.7 10^3/uL (0.0-1.0); PLATELET ESTIMATE, MANUAL NORMAL (130-450,000) (NORMAL); RBC MORPHOLOGY (MULTIPLE) NORMAL APPEARANCE (NORMAL)
[2020-08-22] MEDS: hydrALAZINE 10 MG TABLET PO SCH ×3 (06:52→21:30)
[2020-08-22] MEDS: FUROSEMIDE 40 MG/4 ML VIAL IVP SCH ×2 (06:52→14:06)
[2020-08-22] MEDS: IPRATROPIUM/ALBUTEROL 3 ML NEB INH SCH ×3 (07:23→15:53)
[2020-08-22] MEDS: INSULIN ASPART 300 UNIT/3 ML PEN SUBQ SCH ×4 (07:45→21:23)
[2020-08-22] MEDS ORDERED: INSULIN REGULAR HUMAN 300 UNIT/3 ML VIAL IVP ONE (08:00)
[2020-08-22] MEDS ORDERED: DEXTROSE 10% 250 ML IV ONE (08:00)
[2020-08-22] MEDS: MIDODRINE 2.5 MG TABLET PO SCH ×3 (10:01→17:04)
[2020-08-22] MEDS: SENNA 8.6 MG TABLET PO SCH (10:03)
[2020-08-22] MEDS: CITALOPRAM 10 MG TABLET PO SCH (10:03)
[2020-08-22] MEDS: ASPIRIN EC 81 MG TABLET PO SCH (10:03)
[2020-08-22] MEDS: polyethylene glycoL 3350 17 GM PACKET PO SCH (10:04)
[2020-08-22] MEDS: AMIODARONE 200 MG TABLET PO SCH ×2 (10:33→21:30)
[2020-08-22] MEDS: SPIRONOLACTONE 25 MG TABLET PO SCH (10:33)
[2020-08-22] MEDS: carvediloL 12.5 MG TABLET PO SCH ×2 (10:33→21:29)
[2020-08-22] MEDS: ISOSORBIDE MONONITRATE ER 30 MG TABLET PO SCH (12:17)
[2020-08-22] MEDS ORDERED: LORazepam 2 MG/ML VIAL IVP SCH (13:49)
--- NOTE | 2020-08-22 16:30 | PROVIDER PROGRESS NOTE ---
Assessment/Plan - Problem List (1) Acute on chronic systolic heart failure, NYHA class 4 Assessment/Plan: The LV EF was 30%, but during this hospitalization a repeat Echo showed EF of 20%. Since he needs to be on Amiodarone because of defibrillator discharges (presumably for V. tach), his Coreg dose needed to be decreased. MARIANA inhibitor stopped and in its place hydralazine and nitrates started. Spironolactone started IV twice daily Lasix is resumed today since blood pressure has improved. He was minimally negative and fluid balance yesterday. Now he is about 1.5 L negative and fluid balance over the last 2 days. Follow I's and O's. Monitor daily weight Follow BMP and Mg daily (7) Panic disorder Assessment/Plan: He remains on anxiolytics for the (2) CHRIS (acute kidney injury) Assessment/Plan: Increased yet again. 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 These episodes were V. tach. He has been started on Amiodarone 400 twice daily here for a week then 200 twice daily for a week then 200 mg daily continuously because of the above V. tach (4) Cardiac asthma Assessment/Plan: He had documented wheezing only when he is was supine, earlier this admission. He has no history of COPD or asthma. Steroids have been weaned to off, that was likely the cause of the rise in white blood count for 3 to We will decrease the doses of nebulizer treatments (5) Diabetes mellitus Assessment/Plan: Hypoglycemia occurred again this morning. We will decrease his insulin coverage. Continue with carb controlled diet and sliding scale coverage (6) Panic disorder Assessment/Plan: He had nausea and vomiting today when he was panicky and requested an earlier abdomen dose which was given. Continues on his usual p.o. meds for this as well (7) Hypotension Assessment/Plan: Resolved with initiation of Midodrin 5 mg 3 times daily with meals. - Current Meds Current Meds: Current Medications Generic Name Dose Route Start Last Admin Trade Name Freq PRN Reason Stop Dose Admin Acetaminophen 650 mg 08/17/20 14:00 08/17/20 22:35 Tylenol PO 650 mg Q4HR PRN Administration Pain 1 to 4 Albuterol/Ipratropium 3 ml 08/17/20 19:00 08/22/20 15:53 Duoneb INH Not Given RTQID JITENDRA Amiodarone HCl 400 mg 08/20/20 11:40 08/22/20 10:33 Pacerone PO 400 mg BID JITENDRA Administration Aspirin 81 mg 08/20/20 10:00 08/22/20 10:03 Ecotrin PO 81 mg DAILY JITENDRA Administration Benzonatate 100 mg 08/18/20 00:00 08/22/20 01:38 Tessalon PO 100 mg TID PRN Administration Cough Carvedilol 6.25 mg 08/20/20 21:00 08/22/20 10:33 Coreg PO 6.25 mg BID JITENDRA Administration Citalopram Hydrobromide 10 mg 08/17/20 21:00 08/22/20 10:03 Celexa PO 10 mg DAILY JITENDRA Administration Furosemide 40 mg 08/20/20 11:39 08/22/20 14:06 Lasix Inj 40 Mg Vial IVP 40 mg BIDDIURETIC JITENDRA Administration Guaifenesin/Codeine Phosphate 5 ml 08/19/20 09:09 08/21/20 22:26 Robitussin Ac PO 5 ml Q6HR PRN Administration Cough Hydralazine HCl 10 mg 08/20/20 22:00 08/22/20 14:53 Apresoline PO 10 mg TID JITENDRA Administration Insulin Aspart 1 - 9 unit 08/22/20 12:00 08/22/20 12:07 Novolog SUBQ Not Given 0800,1200,1700,2100 [facility] Protocol Isosorbide Mononitrate 15 mg 08/20/20 12:00 08/22/20 12:17 Imdur PO 15 mg 1200 [facility] Administration Lorazepam 0.5 mg 08/20/20 11:42 08/21/20 03:10 Ativan PO 0.5 mg Q12H PRN Administration Anxiety Midodrine 5 mg 08/20/20 12:00 08/22/20 12:17 PO 5 mg TIDWM JITENDRA Administration Morphine Sulfate 1 mg 08/20/20 11:42 08/22/20 02:56 Morphine (Carpuject) IVP 1 mg Q4HR PRN Administration PAIN Ondansetron HCl 4 mg 08/21/20 08:10 08/21/20 20:06 Zofran Inj IVP 4 mg Q4HR PRN Administration Nausea / Vomiting Oxycodone HCl 5 mg 08/17/20 14:00 08/20/20 17:59 Roxicodone PO 5 mg Q4HR PRN Administration Pain 5 to 7 Polyethylene Glycol 17 gm 08/19/20 21:00 08/22/20 10:04 Miralax PO Not Given DAILY JITENDRA Pravastatin Sodium 20 mg 08/20/20 21:00 08/21/20 20:07 Pravachol PO 20 mg QPM JITENDRA Administration Senna 8.6 - 17.2 mg 08/22/20 09:00 08/22/20 10:03 Senokot PO 17.2 mg DAILY JITENDRA Administration Sodium Chloride 10 ml 08/17/20 14:00 08/19/20 21:02 Normal Saline Flush 0.9% IVP 10 ml PRN PRN Administration NEEDED PER PROVIDER ORDERS Sodium Chloride 10 ml 08/17/20 17:00 08/22/20 14:09 Normal Saline Flush 0.9% IVP 10 ml 0100,0900,1700 JITENDRA Administration Spironolactone 25 mg 08/20/20 10:00 08/22/20 10:33 Aldactone PO 25 mg DAILY JITENDRA Administration Trazodone HCl 50 mg 08/19/20 20:17 08/21/20 22:26 Desyrel PO 50 mg QPM PRN Administration Insomnia - Lab Result Fish Bone Diagrams: 08/23/20 04:50 08/23/20 04:50 - Additional Planning My Orders: My Active Orders 08/22/20 SODIUM, URINE [UC] Urgent 08/22/20 11:02 Miscellaenous Nursing Order [RC] QSHIFT 08/22/20 12:00 Insulin Aspart [NovoLOG] 1 - 9 unit SUBQ 0800,1200,1700,2100 08/22/20 21:00 Insulin Glargine [Lantus Solostar] 10 unit SUBQ QPM Subjective - Subjective Patient Reports: Feeling Better, Resting Comfortably Nursing Reports: Other (N/V this afternoon when he got panicky) Objective Vital Signs: Vital Signs - 24 hr 09/08/21/20 08/21/20 19:42 19:54 22:19 Temperature 36.3 C L 36.3 C L Heart Rate 89 Heart Rate [ 61 89 Brachial] Respiratory 21 16 Rate Blood Pressure 114/78 109/96 H [Right Brachial artery] O2 Saturation 94 93 08/22/20 08/22/20 08/22/20 04:33 04:47 07:39 Temperature 36.3 C L 36.5 C Heart Rate Heart Rate [ 61 62 62 Brachial] Respiratory 18 18 24 Rate Blood Pressure 112/94 H 99/74 113/82 H [Right Brachial artery] O2 Saturation 97 100 98 08/22/20 08/22/20 08/22/20 10:06 10:36 12:01 Temperature 36.6 C Heart Rate Heart Rate [ 64 63 Brachial] Respiratory 20 Rate Blood Pressure 108/49 L 108/80 105/86 H [Right Brachial artery] O2 Saturation 96 08/22/20 08/22/20 15:02 16:05 Temperature 35.5 C L Heart Rate Heart Rate [ 65 62 Brachial] Respiratory 20 Rate Blood Pressure 114/78 114/83 H [Right Brachial artery] O2 Saturation 95 Oxygen O2 Source Nasal cannula I&O (Last 24 Hrs): Intake and Output Totals x24h 08/20/20 08/21/20 08/22/20 23:59 23:59 23:59 Intake Total 1357 1606 870 Output Total 525 1150 650 Balance 832 456 220 General: Other (More lethargic) HEENT: Mucous membr. moist/pink, Other (Unchanged lump of L forehead) Neuro: Alert, Other ([place] somnolent) Cardiovascular: Regular rate, No murmurs Respiratory: Rales Abdomen: Other (Obses with pannus) Extremities: No edema - Results Results: Laboratory Results WBC 17.1 x10^3/uL (4.8-10.8) H 08/22/20 05:30 RBC 5.38 10^6/uL (4.70-6.10) 08/22/20 05:30 Hgb 15.6 g/dL (14.0-18.0) 08/22/20 05:30 Hct 50.1 % (42.0-52.0) 08/22/20 05:30 MCV 93.1 fL (80.0-94.0) 08/22/20 05:30 MCH 29.0 pg (27.0-31.0) 08/22/20 05:30 MCHC 31.1 g/dL (32.0-36.0) L 08/22/20 05:30 RDW 15.5 % (12.0-15.0) H 08/22/20 05:30 Plt Count 246 10^3/uL (130-450) 08/22/20 05:30 MPV 10.9 fL (7.4-11.4) 08/22/20 05:30 Neut # (Auto) Not Reportable 08/22/20 05:30 Lymph # (Auto) Not Reportable 08/22/20 05:30 [place] # (Auto) Not Reportable 08/22/20 05:30 Eos # (Auto) Not Reportable 08/22/20 05:30 Baso # (Auto) Not Reportable 08/22/20 05:30 Absolute Nucleated RBC Not Reportable 08/22/20 05:30 Total Counted 100 08/22/20 05:30 Band Neuts % (Manual) 0 % (0-10) 08/22/20 05:30 Abnorm Lymph % (Manual) 0 % 08/22/20 05:30 Nucleated RBC % Not Reportable 08/22/20 05:30 Neutrophils # (Manual) 11.6 10^3/uL (1.5-6.6) H 08/22/20 05:30 Lymphocytes # (Manual) 2.7 10^3/uL (1.5-3.5) 08/22/20 05:30 Monocytes # (Manual) 2.7 10^3/uL (0.0-1.0) H 08/22/20 05:30 Eosinophils # (Manual) 0.0 10^3/uL (0-0.7) 08/22/20 05:30 Basophils # (Manual) 0.0 10^3/uL (0-0.1) 08/22/20 05:30 Differential Comment MANUAL DIFFERENTIAL 08/22/20 05:30 Platelet Estimate NORMAL (130-450,000) (NORMAL) 08/22/20 05:30 RBC Morph Micro Appear NORMAL APPEARANCE (NORMAL) 08/22/20 05:30 PT 14.8 secs (9.9-12.6) H 08/17/20 11:58 INR 1.3 (0.8-1.2) H 08/17/20 11:58 Sodium 130 mmol/L (135-145) L 08/22/20 05:30 Potassium 5.8 mmol/L (3.5-5.0) H 08/22/20 05:30 Chloride 93 mmol/L (101-111) L 08/22/20 05:30 Carbon Dioxide 25 mmol/L (21-32) 08/22/20 05:30 Anion Gap 12.0 (6-13) 08/22/20 05:30 BUN 86 mg/dL (6-20) H* 08/22/20 05:30 Creatinine 2.0 mg/dL (0.6-1.2) H 08/22/20 05:30 Estimated GFR (MDRD) 34 (>89) L 08/22/20 05:30 Glucose 97 mg/dL (70-100) 08/22/20 05:30 POC Whole Bld Glucose 111 mg/dL (70 - 100) H 08/22/20 16:13 Estimat Average Glucose 180 mg/dL (70-100) H 08/17/20 11:58 Hemoglobin A1c % 7.9 % (4.27-6.07) H 08/17/20 11:58 Calcium 8.6 mg/dL (8.5-10.3) 08/22/20 05:30 Phosphorus 5.1 mg/dL (2.5-4.6) H 08/18/20 05:26 Magnesium 3.1 mg/dL (1.7-2.8) H 08/22/20 05:30 Total Bilirubin 1.5 mg/dL (0.2-1.0) H 08/19/20 13:20 AST 21 IU/L (10-42) 08/19/20 13:20 ALT 23 IU/L (10-60) 08/19/20 13:20 Alkaline Phosphatase 43 IU/L (42-121) 08/19/20 13:20 Troponin I High Sens 34.4 ng/L (2.3-19.7) H* 08/17/20 18:03 B-Natriuretic Peptide 690 pg/mL (5-100) H 08/20/20 10:23 Total Protein 6.7 g/dL (6.7-8.2) 08/19/20 13:20 Albumin 4.0 g/dL (3.2-5.5) 08/19/20 13:20 Globulin 2.7 g/dL (2.1-4.2) 08/19/20 13:20 Albumin/Globulin Ratio 1.5 (1.0-2.2) 08/19/20 13:20 Lipase 25 U/L (22-51) 08/17/20 11:58 Last Dose Date UNKNOWN 08/17/20 11:58 Last Dose Time UNKNOWN 08/17/20 11:58 Digoxin < 0.2 ng/mL 08/17/20 11:58 - Procedures Procedures: Procedures ENDOSC POLYPECTOMY OF LG INTEST (04/29/15)
[2020-08-22] MEDS ORDERED: INSULIN GLARGINE 300 UNIT/3 ML PEN SUBQ SCH (21:00)
[2020-08-22] MEDS: PRAVASTATIN 10 MG TABLET PO SCH (21:29)
[2020-08-22] MEDS: traZODone 50 MG TABLET PO PRN (21:35)
[2020-08-23] MEDS: SODIUM CHLORIDE FLUSH 0.9% 10 ML SYRINGE IVP SCH ×2 (00:31→08:54)
[2020-08-23] MEDS: IPRATROPIUM/ALBUTEROL 3 ML NEB INH SCH ×3 (00:33→11:38)
[2020-08-23] MEDS: FUROSEMIDE 40 MG/4 ML VIAL IVP SCH (05:11)
[2020-08-23] MEDS: hydrALAZINE 10 MG TABLET PO SCH (05:11)
[2020-08-23 05:13] LABS: BASOPHILS # (AUTO) 0.1 10^3/uL (0.0-0.1); BASOPHILS % (AUTO) 0.4 %; EOSINOPHILS % (AUTO) 0.1 %; HGB - HEMOGLOBIN 15.5 g/dL (14.0-18.0); LYMPHOCYTES # (AUTO) 1.7 10^3/uL (1.5-3.5); LYMPHOCYTES % (AUTO) 11.1 %; MEAN CORPUSCULAR HEMOGLOBIN 28.7 pg (27.0-31.0); MEAN CORPUSCULAR HGB CONC 30.6 g/dL (32.0-36.0); MEAN CORPUSCULAR VOLUME 93.7 fL (80.0-94.0); MEAN PLATELET VOLUME 10.5 fL (7.4-11.4); MONOCYTES # (AUTO) 1.6 10^3/uL (0.0-1.0); MONOCYTES % (AUTO) 10.1 %; NEUTROPHILS # (AUTO) 11.9 10^3/uL (1.5-6.6); NEUTROPHILS % (AUTO) 75.9 %; PLT - PLATELET COUNT 238 10^3/uL (130-450); RED BLOOD COUNT 5.41 10^6/uL (4.70-6.10); RED CELL DISTRIBUTION WIDTH 15.9 % (12.0-15.0); WHITE BLOOD COUNT 15.7 x10^3/uL (4.8-10.8)
[2020-08-23] MEDS: SODIUM CHLORIDE FLUSH 0.9% 10 ML SYRINGE IVP PRN (05:16)
[2020-08-23 05:28] LABS: CALCIUM 8.7 mg/dL (8.5-10.3); CREATININE 2.2 mg/dL (0.6-1.2)
[2020-08-23] MEDS ORDERED: INSULIN REGULAR HUMAN 300 UNIT/3 ML VIAL IVP ONE (06:54)
[2020-08-23] MEDS ORDERED: DEXTROSE 10% 250 ML IV STA (06:54)
[2020-08-23] MEDS: MIDODRINE 2.5 MG TABLET PO SCH (08:01)
[2020-08-23] MEDS: INSULIN ASPART 300 UNIT/3 ML PEN SUBQ SCH ×2 (08:03→12:14)
[2020-08-23] MEDS: AMIODARONE 200 MG TABLET PO SCH (08:53)
[2020-08-23] MEDS: carvediloL 12.5 MG TABLET PO SCH (08:53)
[2020-08-23] MEDS: SENNA 8.6 MG TABLET PO SCH (08:53)
[2020-08-23] MEDS: SPIRONOLACTONE 25 MG TABLET PO SCH (08:53)
[2020-08-23] MEDS: CITALOPRAM 10 MG TABLET PO SCH (08:53)
[2020-08-23] MEDS: polyethylene glycoL 3350 17 GM PACKET PO SCH (08:54)
[2020-08-23] MEDS: ASPIRIN EC 81 MG TABLET PO SCH (08:59)
--- NOTE | 2020-08-23 09:43 | XRAY Report ---
PROCEDURE: Chest 1 View X-Ray INDICATIONS: F/U CHF TECHNIQUE: One view of the chest was acquired. COMPARISON: 08/17/2020 FINDINGS: Surgical changes and devices: Pacemaker. Lungs and pleura: No pleural effusions or pneumothorax. Pulmonary edema. Mediastinum: Mediastinal contours appear normal. Unchanged cardiomegaly. Bones and chest wall: No suspicious bony lesions. Overlying soft tissues appear unremarkable. IMPRESSION: Congestive heart failure. Reviewed by: Quirino Schmidt MD on 08/23/2020 9:42 AM PDT Approved by: Quirino Schmidt MD on 08/23/2020 9:42 AM PDT Station ID: [id number]
--- NOTE | 2020-08-23 12:06 | Discharge Plan ---
Discharge Plan Problem Reviewed?: Yes Disposition: 02 Transfer Acute Care Hosp Condition: Poor No Smoking: If you smoke, Please STOP! Call for help. Follow-up with: Miguel Angel Herrera DO [Primary Care Provider] -
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
[2020-08-23] MEDS: ISOSORBIDE MONONITRATE ER 30 MG TABLET PO SCH (12:14)
[2020-08-23 12:20] VITALS: BP 129/88
[2020-08-24] MEDS ORDERED: FUROSEMIDE 40 MG/4 ML VIAL IVP SCH (06:00)
== END 2020-08-23 14:00 | disposition short-term general hospital (02) | DRG 292 ==
LOC: ED 10:46 → MS2 14:00 → OBSVTOIN 08-18 11:12
PROVIDERS: ADMIT Specialist; ATTEND Internal Medicine
DX: I11.0 Hypertensive heart disease with heart failure (principal); I47.2 Ventricular tachycardia; N17.9 Acute kidney failure, unspecified; I50.23 Acute on chronic systolic (congestive) heart failure; I43 Cardiomyopathy in diseases classified elsewhere; I95.2 Hypotension due to drugs; T50.1X5A Adverse effect of loop [high-ceiling] diuretics, initial encounter; T46.2X5A Adverse effect of other antidysrhythmic drugs, initial encounter; Y92.230 Patient room in hospital as the place of occurrence of the external cause; E11.649 Type 2 diabetes mellitus with hypoglycemia without coma; F41.0 Panic disorder [episodic paroxysmal anxiety]; F41.9 Anxiety disorder, unspecified; G47.33 Obstructive sleep apnea (adult) (pediatric); I48.91 Unspecified atrial fibrillation; E78.00 Pure hypercholesterolemia, unspecified; G89.29 Other chronic pain; M06.9 Rheumatoid arthritis, unspecified; M10.9 Gout, unspecified; M54.9 Dorsalgia, unspecified; R35.1 Nocturia; Z66 Do not resuscitate; Z95.810 Presence of automatic (implantable) cardiac defibrillator; Z72.89 Other problems related to lifestyle; Z79.82 Long term (current) use of aspirin; Z79.899 Other long term (current) drug therapy
CPT/HCPCS: 36415; 71045; 80048; 80053; 80162; 83036; 83690; 83735; 83880; 84100; 84300; 84484; 85025; 85610; 93005; 93306; 94640; 94761; 96361; 96374; 96375; 96376; 99285; A9270; G0378; J1815; J2060; J3490; J7120

== ENCOUNTER 2020-10-31 08:00 | Outpatient (CLI) | payer MEDICAID ==
[2020-10-31 18:17] LABS: BASOPHILS # (AUTO) 0.1 10^3/uL (0.0-0.1); BASOPHILS % (AUTO) 0.6 %; EOSINOPHILS # (AUTO) 0.2 10^3/uL (0.0-0.7); EOSINOPHILS % (AUTO) 2.2 %; HGB - HEMOGLOBIN 15.2 g/dL (14.0-18.0); LYMPHOCYTES # (AUTO) 2.6 10^3/uL (1.5-3.5); LYMPHOCYTES % (AUTO) 27.3 %; MEAN CORPUSCULAR HEMOGLOBIN 29.6 pg (27.0-31.0); MEAN CORPUSCULAR HGB CONC 32.5 g/dL (32.0-36.0); MEAN CORPUSCULAR VOLUME 90.9 fL (80.0-94.0); MONOCYTES # (AUTO) 0.8 10^3/uL (0.0-1.0); MONOCYTES % (AUTO) 7.8 %; NEUTROPHILS # (AUTO) 5.9 10^3/uL (1.5-6.6); NEUTROPHILS % (AUTO) 61.7 %; PLT - PLATELET COUNT 217 10^3/uL (130-450); RED BLOOD COUNT 5.14 10^6/uL (4.70-6.10); RED CELL DISTRIBUTION WIDTH 15.6 % (12.0-15.0); WHITE BLOOD COUNT 9.6 x10^3/uL (4.8-10.8)
[2020-10-31 18:45] LABS: ALBUMIN 4.5 g/dL (3.2-5.5); ALBUMIN/GLOBULIN RATIO 1.6 (1.0-2.2); ALKALINE PHOSPHATASE 46 IU/L (42-121); ALT ALANINE AMINOTRANSFERASE 24 IU/L (10-60); AST ASPARTATE AMINOTRANSFERASE 17 IU/L (10-42); BILIRUBIN,TOTAL 0.8 mg/dL (0.2-1.0); BUN - BLOOD UREA NITROGEN 21 mg/dL (6-20); CALCIUM 9.5 mg/dL (8.5-10.3); CARBON DIOXIDE - CO2 25 mmol/L (21-32); CHLORIDE 100 mmol/L (101-111); CHOL/HDL RATIO 6.3 (<5.0); CHOLESTEROL 183 mg/dL; CREATININE 1.4 mg/dL (0.6-1.2); GLUCOSE 267 mg/dL (70-100); HDL CHOLESTEROL 29 mg/dL; LDL CHOLESTEROL,CALCULATED 103 mg/dL; LDL/HDL RATIO 3.6 (<3.6); SODIUM 136 mmol/L (135-145); TOTAL PROTEIN 7.4 g/dL (6.7-8.2); VLDL CHOLESTEROL 51 mg/dL
[2020-10-31 21:00] LABS: HEMOGLOBIN A1c% 8.7 % (4.27-6.07)
== END 2020-10-31 23:59 | disposition home or self-care (01) ==
LOC: LAB.WCP 08:00
PROVIDERS: ATTEND Family Medicine
DX: E11.9 Type 2 diabetes mellitus without complications (principal); I42.8 Other cardiomyopathies
CPT/HCPCS: 36415; 80053; 80061; 83036; 83721; 84443; 85025

== ENCOUNTER 2020-12-23 13:39 | Outpatient (CLI) | payer MEDICAID ==
--- NOTE | 2020-12-23 14:23 | SLEEP CARE CONSULTATION ---
Information from patient questionnaire entered by Bob Mccurdy. I have reviewed and concur with the information entered by Bob Mccurdy. This document represents the service I personally performed and the decisions made by me, Vic Soliz MD, [facility]. History of Present Illness Service Date and Time: 12/23/2020 1339 Reason for Visit: New patient Chief Complaint: reports: Observed pauses in breathing, Frequent awakenings at night Date of Onset: 2-3 years Usual bedtime: 9-10 PM Time it takes to fall asleep: 10 minutes Snores at night: Yes Observed to quit breathing while asleep: Yes Sleeps alone due to snoring: No Number of times waking at night: 10 + Reasons for waking at night: reports: Choking, Gasping for air, Bathroom, Other (Coughing) Toss, Turn, or Twitch while sleeping: Yes Recalls having dreams: Yes Usually gets out of bed at: 8-9 AM Feels refreshed in the morning: No Morning headache: No Sleepy or fatigued during the day: Yes Ever fallen asleep while driving: No Takes day naps: Yes Dreams during day naps: Yes Prior sleep studies: Yes Year and Where: Unknown Additional HPI information: I had the pleasure of seeing Mr. Mays today regarding the possibility of him having a sleep disorder. As you know, he is a 60 year old gentleman who complains of shortness of breath at night. When he was hospitalized last July, hospital staff witnessed him quit breathing while asleep. At one time, he was put on a BiPAP to help with his breathing. The patient tells me that he normally goes to bed around 9 - 10 pm, and it takes him approximately 10 minutes to fall asleep. He sleeps alone. He can recall waking up on the average of 10+ times during the night. Most of the time he wakes up because of having to use the bathroom, his own snoring, choking, and gasping. There is a lot of tossing and turning in his sleep. No somniloquy (sleep talking) or somnambulism (sleep walking). Generally he can recall having dreams. In the morning he usually gets up out of the bed around 8 - 9 a.m. not feelingrefreshed nor rested. He usually does not have a morning headache. During the day he complains of feeling sleepy and fatigued. His score on [place] Sleepiness Scale is 13 out of 21. He [address] not drive. He usually takes naps during the day. He denies having impaired concentration during the day. - Parasomnia Symptoms Ever been unable to move upon waking from sleep: No Ever felt weak in the knees when startled or emotional: Yes Bothered by creepy, crawly, restless sensations in legs: No Problems with memory or concentration: No Subjective Initial [place] Sleepiness Scale score: 13 (in 2020) Past Medical History Past Medical History: reports: Claustrophobia, Congestive Heart Failure, Diabetes, Anxiety, Asthma, Other Social History The patient's occupation is a unemployed. Patient is Legally and lives in [place]. Have you smoked in the past 12 months: No Alcohol use: No Caffeine use: Yes Caffeine amount and frequency: Very little Family History Family history of sleep disordered breathing: Yes (Son) Family Hx Sleep Apnea: Other: Snoring (son) Allergies and Home Medications Drug allergies reviewed: Yes Home medication list reviewed: Yes Review of Systems Weight loss over past 5 years: 40 Cardiovascular: reports: chest pain, leg or foot swelling Respiratory: reports: shortness of breath, wheeze Gastrointestinal: reports: heartburn, nausea, vomitting Urinary: reports: frequency Neurological: denies: headaches, seizure, head trauma, disorientation, speech dysfunction, gait or balance problems, fainting or unconsciousness, other Psychiatric: reports: anxiety, depression Ear/Nose/Throat: reports: sinus problems, wisdom teeth removed Endocrine: reports: too hot or cold, increased urination Musculoskeletal: reports: joint pain, muscle pain or cramping, mobility problems Immunologic: denies: sneezing, rash, itching, allergies to food or environment, other Physical Exam Vital signs obtained and entered by: To minimize the risk of COVID-19 exposure, detailed exam was not performed. Height: 5 ft 11 in Weight: 247 lb Body Mass Index: 34.4 BMI Classification: Obese Impression and Plan IMPRESSION: 1. Obstructive Sleep Apnea-Hypopnea Syndrome, as suggested by history of loud and irregular snoring, observed cessation of breath while asleep, frequent awakenings during the night, nocturnal choking, unrefreshed sleep, and daytime hypersomnolence. Narrow oropharynx and obesity are common predisposing factors for obstructive sleep apnea-hypopnea syndrome. Left untreated, obstructive sleep apnea-hypopnea can exacerbate congestive heart failure. Central sleep apnea and Daniel-Hicks respiration may also be present. I recommend proceeding to polysomnography to confirm the diagnosis and to assess severity. If he has significant sleep disordered breathing, a manual CPAP/BiPAP titration study will also be performed to find the optimal treatment pressure. I informed the patient of what the sleep studies involve and after some discussion, he agreed to proceed. Plan: 1. Schedule polysomnography + manual CPAP/BiPAP titration study and return in 1 to 2 weeks after the study to discuss result and initiate therapy. 2. Attempt to lose weight. Visit Type: In Office Time Spent with Patient (minutes): 15 Provider Statement: I spent 100% of the Face to Face Visit with the patient with greater than 50% spent counseling the patient and coordination of care.
== END 2020-12-23 13:40 | disposition home or self-care (01) ==
LOC: SC 13:39
PROVIDERS: ATTEND Internal Medicine Pulmonary Disease
DX: G47.10 Hypersomnia, unspecified (principal); G47.8 Other sleep disorders; R06.81 Apnea, not elsewhere classified; R06.83 Snoring; E66.9 Obesity, unspecified; Z68.34 Body mass index [BMI] 34.0-34.9, adult
CPT/HCPCS: 99202; 99212

== ENCOUNTER 2021-01-16 08:00 | Outpatient (CLI) | payer MEDICAID ==
[2021-01-16 18:38] LABS: BASOPHILS # (AUTO) 0.1 10^3/uL (0.0-0.1); BASOPHILS % (AUTO) 0.6 %; EOSINOPHILS # (AUTO) 0.2 10^3/uL (0.0-0.7); EOSINOPHILS % (AUTO) 2.1 %; HGB - HEMOGLOBIN 14.7 g/dL (14.0-18.0); LYMPHOCYTES # (AUTO) 2.2 10^3/uL (1.5-3.5); LYMPHOCYTES % (AUTO) 22.8 %; MEAN CORPUSCULAR HEMOGLOBIN 29.6 pg (27.0-31.0); MEAN CORPUSCULAR HGB CONC 30.5 g/dL (32.0-36.0); MEAN PLATELET VOLUME 11.3 fL (7.4-11.4); MONOCYTES # (AUTO) 1.2 10^3/uL (0.0-1.0); MONOCYTES % (AUTO) 11.8 %; NEUTROPHILS # (AUTO) 6.1 10^3/uL (1.5-6.6); NEUTROPHILS % (AUTO) 62.4 %; PLT - PLATELET COUNT 234 10^3/uL (130-450); RED BLOOD COUNT 4.97 10^6/uL (4.70-6.10); RED CELL DISTRIBUTION WIDTH 14.6 % (12.0-15.0); WHITE BLOOD COUNT 9.8 x10^3/uL (4.8-10.8)
[2021-01-16 18:55] LABS: ALBUMIN 4.3 g/dL (3.2-5.5); ALBUMIN/GLOBULIN RATIO 1.4 (1.0-2.2); BILIRUBIN,TOTAL 1.2 mg/dL (0.2-1.0); CREATININE 1.7 mg/dL (0.6-1.2); TOTAL PROTEIN 7.3 g/dL (6.7-8.2)
== END 2021-01-16 23:59 | disposition home or self-care (01) ==
LOC: LAB.WCP 08:00
PROVIDERS: ATTEND Family Medicine
DX: R10.32 Left lower quadrant pain (principal); N18.30 Chronic kidney disease, stage 3 unspecified
CPT/HCPCS: 36415; 80053; 83690; 85025

== ENCOUNTER 2021-02-25 16:13 | Outpatient (CLI) | payer MEDICAID ==
[2021-02-25 17:53] LABS: ALBUMIN 3.9 g/dL (3.2-5.5); ALBUMIN/GLOBULIN RATIO 1.3 (1.0-2.2); CALCIUM 9.8 mg/dL (8.5-10.3); CREATININE 1.4 mg/dL (0.6-1.2); POTASSIUM 4.7 mmol/L (3.5-5.0); TOTAL PROTEIN 6.9 g/dL (6.7-8.2)
== END 2021-02-25 23:59 | disposition home or self-care (01) ==
LOC: LAB.WCP 16:13
PROVIDERS: ATTEND Family Medicine
DX: N17.9 Acute kidney failure, unspecified (principal); N18.9 Chronic kidney disease, unspecified; I12.9 Hypertensive chronic kidney disease with stage 1 through stage 4 chronic kidney disease, or unspecified chronic kidney disease; E11.22 Type 2 diabetes mellitus with diabetic chronic kidney disease; Z79.899 Other long term (current) drug therapy
CPT/HCPCS: 36415; 80053

== ENCOUNTER 2021-03-26 15:10 | Outpatient (CLI) | payer MEDICAID ==
[2021-03-26 18:34] LABS: CALCIUM 9.4 mg/dL (8.5-10.3); CREATININE 1.5 mg/dL (0.6-1.2); POTASSIUM 4.2 mmol/L (3.5-5.0)
[2021-03-26 18:55] LABS: THYROID STIMULATING HORMONE 4.58 uIU/mL (0.34-5.60)
[2021-03-26 18:57] LABS: FREE T4 (FREE THYROXINE) 0.99 ng/dL (0.58-1.64)
== END 2021-03-26 23:59 | disposition home or self-care (01) ==
LOC: LAB.WCP 15:10
PROVIDERS: ATTEND Nurse Practitioner
DX: I42.8 Other cardiomyopathies (principal)
CPT/HCPCS: 36415; 80048; 84439; 84443

== ENCOUNTER 2021-04-09 08:00 | Outpatient (CLI) | payer MEDICAID ==
[2021-04-09 18:00] LABS: BASOPHILS # (AUTO) 0.1 10^3/uL (0.0-0.1); BASOPHILS % (AUTO) 0.7 %; EOSINOPHILS # (AUTO) 0.2 10^3/uL (0.0-0.7); EOSINOPHILS % (AUTO) 2.2 %; HCT - HEMATOCRIT 52.2 % (42.0-52.0); HGB - HEMOGLOBIN 16.1 g/dL (14.0-18.0); LYMPHOCYTES # (AUTO) 2.5 10^3/uL (1.5-3.5); LYMPHOCYTES % (AUTO) 28.6 %; MEAN CORPUSCULAR HEMOGLOBIN 28.4 pg (27.0-31.0); MEAN CORPUSCULAR HGB CONC 30.8 g/dL (32.0-36.0); MEAN CORPUSCULAR VOLUME 92.2 fL (80.0-94.0); MEAN PLATELET VOLUME 11.3 fL (7.4-11.4); MONOCYTES # (AUTO) 0.9 10^3/uL (0.0-1.0); MONOCYTES % (AUTO) 9.7 %; NEUTROPHILS # (AUTO) 5.1 10^3/uL (1.5-6.6); NEUTROPHILS % (AUTO) 58.6 %; PLT - PLATELET COUNT 212 10^3/uL (130-450); RED BLOOD COUNT 5.66 10^6/uL (4.70-6.10); RED CELL DISTRIBUTION WIDTH 15.8 % (12.0-15.0); WHITE BLOOD COUNT 8.7 x10^3/uL (4.8-10.8)
[2021-04-09 18:57] LABS: ALBUMIN 4.6 g/dL (3.2-5.5); ALBUMIN/GLOBULIN RATIO 1.4 (1.0-2.2); ALKALINE PHOSPHATASE 61 IU/L (42-121); ALT ALANINE AMINOTRANSFERASE 30 IU/L (10-60); AST ASPARTATE AMINOTRANSFERASE 23 IU/L (10-42); BILIRUBIN,TOTAL 1.4 mg/dL (0.2-1.0); BUN - BLOOD UREA NITROGEN 30 mg/dL (6-20); CALCIUM 9.4 mg/dL (8.5-10.3); CARBON DIOXIDE - CO2 31 mmol/L (21-32); CHLORIDE 91 mmol/L (101-111); CHOLESTEROL 121 mg/dL; CREATININE 1.4 mg/dL (0.6-1.2); GFR - MDRD 52 (>89); GLUCOSE 372 mg/dL (70-100); HDL CHOLESTEROL 30 mg/dL; LDL CHOLESTEROL,CALCULATED 51 mg/dL; LDL/HDL RATIO 1.7 (<3.6); POTASSIUM 4.3 mmol/L (3.5-5.0); SODIUM 133 mmol/L (135-145); THYROID STIMULATING HORMONE 2.44 uIU/mL (0.34-5.60); TOTAL PROTEIN 7.9 g/dL (6.7-8.2); TRIGLYCERIDES 202 mg/dL; VLDL CHOLESTEROL 40 mg/dL
[2021-04-09 19:10] LABS: MICROALBUM/CREATININE RATIO,UR 93.1 ug/mg (<30.0); MICROALBUMIN,URINE 2.7 mg/dL (0-300.0)
[2021-04-09 20:01] LABS: ESTIMATED AVERAGE GLUCOSE 220 mg/dL (70-100); HEMOGLOBIN A1c% 9.3 % (4.27-6.07)
== END 2021-04-09 23:59 | disposition home or self-care (01) ==
LOC: LAB.WCP 08:00
PROVIDERS: ATTEND Family Medicine
DX: E11.9 Type 2 diabetes mellitus without complications (principal)
CPT/HCPCS: 36415; 80053; 80061; 82043; 82570; 83036; 83721; 84443; 85025

== ENCOUNTER 2021-04-30 08:00 | Outpatient (CLI) | payer MEDICAID ==
[2021-04-30 18:07] LABS: CALCIUM 9.4 mg/dL (8.5-10.3); CREATININE 1.3 mg/dL (0.6-1.2)
== END 2021-04-30 23:59 | disposition home or self-care (01) ==
LOC: LAB.WCP 08:00
PROVIDERS: ATTEND Nurse Practitioner
DX: I42.8 Other cardiomyopathies (principal)
CPT/HCPCS: 36415; 80048

== ENCOUNTER 2021-05-19 15:22 | Outpatient (CLI) | payer MEDICAID ==
--- NOTE | 2021-05-19 15:36 | SLEEP CARE CONSULTATION ---
Information from patient questionnaire entered by Ana Polk. I have reviewed and concur with the information entered by Ana Polk. This document represents the service I personally performed and the decisions made by me, Vic Soliz MD, [facility]. History of Present Illness Service Date and Time: 05/19/2021 1522 Initial [place] Sleepiness Scale score: 13 (in 2020) Additional HPI information: To minimize the risk of COVID-19 exposure, the patient has requested and consented to this telephone visit. The patient also agrees to having his insurance billed. HPI: Mr. Mays returned for follow up of the sleep study he had on 04/23/2021 at [facility]. The results are as followed: This nocturnal polysomnographlc sleep study was done as a split-night study. The diagnostic portion of the sleep study showed severe snoring which was continuous in nature. The Apnea/Hypopnea index for the diagnostic portion of the study was 74.6 per hour and the sleep efficiency was 73%%. The central apnea events pattern was consistent with Daniel-Hicks respiration. The diagnostic component was consistent with severe obstructive sleep apnea with significant desaturation events down to 72%. For this the patient was put on nasal CPAP which was ineffective, so he was switched to Bl-LEVEL PAP and titrated to a level of 22/16 cm of water. At this level the respiratory events and the severe .desaturation events were reduced. The desaturation events did not resolve in REM sleep despite the optimal AHi. The BllEVEL PAP titration study was graded out as optimal. Therefore would recommend nasal BILEVEL PAP at an inspiraotry pressure of 22 cwp, an expiratory pressure of 16 a Resmed Alrlft F10 FFM Large and in- line heated humidification. Supplemental oxygen should also be considered as his congestive heart fallure therapy Is optimized with close clinical follow up. Attaining optimal weight is recommended. The patient was informed of these findings. I explained to him the pathophysiology behind obstructive sleep apnea. We then spent quite a bit of time discussing different treatment options. For mild obstructive sleep apnea, surgery and oral appliance are alternatives to nasal CPAP therapy but in moderate or severe cases, nasal positive airway pressure therapy is the most effective and reliable treatment. Weight loss in an obese individual is strongly recommended. After some discussion, he opted to go with the BiPAP therapy. I explained to him how BiPAP machine works and what to expect when using the machine. He is encouraged to use CPAP every night especially in the first 2 to 3 nights in order to get used to it. Sleep Study - Results Type of Sleep Study: Polysomnography ([facility] - Split-night) Prior sleep studies: Yes Year and Where: Unknown Allergies and Home Medications Drug allergies reviewed: Yes Home medication list reviewed: Yes Review of Systems Review of systems same as previous: Yes Physical Exam Height: 5 ft 11 in Impression and Plan IMPRESSION: 1. Obstructive Sleep Apnea-Hypopnea Syndrome, very severe, associated with moderate hypoxemia and sleep fragmentation. Obviously this is the cause of the patients symptoms of unrefreshed sleep, and excessive daytime sleepiness. As mentioned above, the patient will be started on a BiPAP set at 22/16 cmH2O. I anticipate good treatment compliance.. PLAN: 1. BiPAP set at 22/16 cm H2O. 2. Attempt to lose weight and avoid alcohol consumption near bedtime. 3. Check thyroid function if not already done. 4. The patient is again cautioned about driving until his sleepiness completely resolves on the CPAP therapy. 5. Return in one month for follow up. I will assess his response and compliance at that time. Visit Type: Telehealth Video Video Type: VSee Patient Location: Home Location of Provider: Office Patient agrees and consents to this telehealth visit type: Yes Patient agrees to have their insurance billed: Yes Provider Statement: I spent 100% of the Telehealth Video Call with the patient with greater than 50% spent counseling the patient and coordination of care.
== END 2021-05-19 15:23 | disposition home or self-care (01) ==
LOC: SC 15:22
PROVIDERS: ATTEND Internal Medicine Pulmonary Disease
DX: G47.33 Obstructive sleep apnea (adult) (pediatric) (principal)

== ENCOUNTER 2021-07-30 13:34 | Outpatient (CLI) | payer MEDICAID ==
[2021-07-30 17:55] LABS: BASOPHILS # (AUTO) 0.1 10^3/uL (0.0-0.1); BASOPHILS % (AUTO) 0.6 %; EOSINOPHILS # (AUTO) 0.2 10^3/uL (0.0-0.7); EOSINOPHILS % (AUTO) 2.2 %; HCT - HEMATOCRIT 48.4 % (42.0-52.0); HGB - HEMOGLOBIN 15.4 g/dL (14.0-18.0); LYMPHOCYTES # (AUTO) 2.4 10^3/uL (1.5-3.5); LYMPHOCYTES % (AUTO) 22.6 %; MEAN CORPUSCULAR HGB CONC 31.8 g/dL (32.0-36.0); MEAN CORPUSCULAR VOLUME 94.3 fL (80.0-94.0); MEAN PLATELET VOLUME 11.3 fL (7.4-11.4); MONOCYTES # (AUTO) 1.1 10^3/uL (0.0-1.0); MONOCYTES % (AUTO) 9.9 %; NEUTROPHILS # (AUTO) 6.8 10^3/uL (1.5-6.6); NEUTROPHILS % (AUTO) 64.3 %; PLT - PLATELET COUNT 208 10^3/uL (130-450); RED BLOOD COUNT 5.13 10^6/uL (4.70-6.10); WHITE BLOOD COUNT 10.6 x10^3/uL (4.8-10.8)
[2021-07-30 18:20] LABS: ALBUMIN 4.5 g/dL (3.2-5.5); ALBUMIN/GLOBULIN RATIO 1.5 (1.0-2.2); ALKALINE PHOSPHATASE 45 IU/L (42-121); ALT ALANINE AMINOTRANSFERASE 15 IU/L (10-60); AST ASPARTATE AMINOTRANSFERASE 14 IU/L (10-42); BILIRUBIN,TOTAL 1.4 mg/dL (0.2-1.0); BUN - BLOOD UREA NITROGEN 31 mg/dL (6-20); CALCIUM 9.6 mg/dL (8.5-10.3); CARBON DIOXIDE - CO2 28 mmol/L (21-32); CHLORIDE 94 mmol/L (101-111); CHOL/HDL RATIO 4.5 (<5.0); CHOLESTEROL 98 mg/dL; CREATININE 1.5 mg/dL (0.6-1.2); GFR - MDRD 48 (>89); GLUCOSE 415 mg/dL (70-100); HDL CHOLESTEROL 22 mg/dL; LDL CHOLESTEROL,CALCULATED 46 mg/dL; LDL/HDL RATIO 2.1 (<3.6); POTASSIUM 4.5 mmol/L (3.5-5.0); SODIUM 133 mmol/L (135-145); TOTAL PROTEIN 7.6 g/dL (6.7-8.2); TRIGLYCERIDES 151 mg/dL; VLDL CHOLESTEROL 30 mg/dL
[2021-07-30 18:25] LABS: THYROID STIMULATING HORMONE 1.99 uIU/mL (0.34-5.60)
[2021-07-30 18:26] LABS: CREATININE,URINE 23.6 mg/dL; MICROALBUM/CREATININE RATIO,UR 59.3 ug/mg (<30.0); MICROALBUMIN,URINE 1.4 mg/dL (0-300.0)
[2021-07-30 20:00] LABS: ESTIMATED AVERAGE GLUCOSE 235 mg/dL (70-100); HEMOGLOBIN A1c% 9.8 % (4.27-6.07)
== END 2021-07-30 23:59 | disposition home or self-care (01) ==
LOC: LAB.WCP 13:34
PROVIDERS: ATTEND Family Medicine
DX: E11.9 Type 2 diabetes mellitus without complications (principal)
CPT/HCPCS: 36415; 80053; 80061; 82043; 82570; 83036; 83721; 84443; 85025

== ENCOUNTER 2021-08-01 18:56 | Outpatient (CLI) | payer MEDICAID | END 2021-08-01 18:57 | disposition EMS.NT | LOC: EMS 18:56 | DX: Z13.6 Encounter for screening for cardiovascular disorders (principal) ==

== ENCOUNTER 2021-09-01 15:59 | Outpatient (CLI) | payer MEDICAID ==
--- NOTE | 2021-09-01 10:56 | XRAY Report ---
PROCEDURE: Knee 4 View RT INDICATIONS: RIGHT KNEE PAIN TECHNIQUE: 3 views of the right knee acquired including a bilateral AP weightbearing view of both kn ees. COMPARISON: Right knee x-ray 11/05/2014. FINDINGS: Bones: No fractures or dislocations. There is minimal medial compartment joint space narrowing bila terally. Moderate lateral tilt and shift of the patella is demonstrated with severe narrowing in the right lateral patellofemoral compartment associated with subchondral sclerosis. There is osteophytosi s in the patellofemoral and lateral compartments. No suspicious bony lesions. Soft tissues: There is a small right joint effusion. A few small indistinct calcifications project o cheryle the suprapatella fat on the right. The findings are nonspecific and may reflect fat necrosis or d ystrophic calcifications. IMPRESSION: 1. Osteoarthritic changes of the right knee including severe narrowing in the right lateral patellofe moral compartment. 2. Small right knee joint effusion. Reviewed by: Av Walsh MD on 09/01/2021 10:55 AM PDT Approved by: Av Walsh MD on 09/01/2021 10:55 AM PDT Station ID: [id number]
== END 2021-09-01 16:00 | disposition home or self-care (01) ==
LOC: DI.N 15:59
PROVIDERS: ATTEND Physician Assistant
DX: M17.11 Unilateral primary osteoarthritis, right knee (principal); M25.461 Effusion, right knee

== ENCOUNTER 2021-11-14 10:11 | Outpatient (CLI) | payer MEDICAID ==
[2021-11-14 12:20] LABS: BASOPHILS # (AUTO) 0.1 10^3/uL (0.0-0.1); BASOPHILS % (AUTO) 0.7 %; EOSINOPHILS # (AUTO) 0.1 10^3/uL (0.0-0.7); EOSINOPHILS % (AUTO) 1.5 %; HGB - HEMOGLOBIN 15.9 g/dL (14.0-18.0); LYMPHOCYTES # (AUTO) 2.6 10^3/uL (1.5-3.5); LYMPHOCYTES % (AUTO) 28.3 %; MEAN CORPUSCULAR HEMOGLOBIN 28.9 pg (27.0-31.0); MEAN CORPUSCULAR VOLUME 96.4 fL (80.0-94.0); MEAN PLATELET VOLUME 11.6 fL (7.4-11.4); MONOCYTES # (AUTO) 1.2 10^3/uL (0.0-1.0); MONOCYTES % (AUTO) 12.4 %; NEUTROPHILS # (AUTO) 5.3 10^3/uL (1.5-6.6); NEUTROPHILS % (AUTO) 56.8 %; PLT - PLATELET COUNT 133 10^3/uL (130-450); WHITE BLOOD COUNT 9.3 x10^3/uL (4.8-10.8)
[2021-11-14 12:44] LABS: ALBUMIN 3.9 g/dL (3.2-5.5); ALBUMIN/GLOBULIN RATIO 1.4 (1.0-2.2); ALKALINE PHOSPHATASE 86 IU/L (42-121); ALT ALANINE AMINOTRANSFERASE 30 IU/L (10-60); AST ASPARTATE AMINOTRANSFERASE 35 IU/L (10-42); BUN - BLOOD UREA NITROGEN 47 mg/dL (6-20); CALCIUM 8.6 mg/dL (8.5-10.3); CARBON DIOXIDE - CO2 30 mmol/L (21-32); CHLORIDE 96 mmol/L (101-111); CHOL/HDL RATIO 3.6 (<5.0); CHOLESTEROL 51 mg/dL; CREATININE 2.1 mg/dL (0.6-1.2); GFR - MDRD 32 (>89); GLUCOSE 109 mg/dL (70-100); HDL CHOLESTEROL 14 mg/dL; LDL CHOLESTEROL,CALCULATED 25 mg/dL; LDL/HDL RATIO 1.8 (<3.6); POTASSIUM 3.9 mmol/L (3.5-5.0); SODIUM 137 mmol/L (135-145); TOTAL PROTEIN 6.7 g/dL (6.7-8.2); TRIGLYCERIDES 60 mg/dL; VLDL CHOLESTEROL 12 mg/dL
[2021-11-14 12:49] LABS: ESTIMATED AVERAGE GLUCOSE 151 mg/dL (70-100); HEMOGLOBIN A1c% 6.9 % (4.27-6.07)
[2021-11-14 12:52] LABS: CREATININE,URINE 59.6 mg/dL; MICROALBUM/CREATININE RATIO,UR 23.5 ug/mg (<30.0); MICROALBUMIN,URINE 1.4 mg/dL (0-300.0)
[2021-11-14 12:56] LABS: THYROID STIMULATING HORMONE 5.85 uIU/mL (0.34-5.60)
[2021-11-14 14:21] LABS: FREE T4 (FREE THYROXINE) 1.32 ng/dL (0.58-1.64)
== END 2021-11-14 23:59 | disposition home or self-care (01) ==
LOC: LAB.WCP 10:11
PROVIDERS: ATTEND Family Medicine
DX: I42.8 Other cardiomyopathies (principal); I42.0 Dilated cardiomyopathy; E11.9 Type 2 diabetes mellitus without complications; E78.2 Mixed hyperlipidemia; I11.0 Hypertensive heart disease with heart failure; I50.9 Heart failure, unspecified; R11.2 Nausea with vomiting, unspecified
CPT/HCPCS: 36415; 80053; 80061; 82043; 82570; 83036; 83721; 84439; 84443; 85025